=== PATIENT | male | born 1950 | race African-American/Black ===

== ENCOUNTER 2017-02-12 11:54 | Inpatient (IN) ==
[2017-02-18 16:26] VITALS: BP 97/66
== END 2017-02-18 16:43 | disposition home health service (06) ==
LOC: DIRADM 11:54 → 4N 13:48
PROVIDERS: ADMIT Internal Medicine; ATTEND Internal Medicine

== ENCOUNTER 2017-02-21 18:47 | Inpatient (IN) ==
[2017-02-21] MEDS ORDERED: NS 1,000 ML IV ONE (19:11)
[2017-02-21 19:22] LABS: MANUAL DIFF NEEDED? NO
[2017-02-21] MEDS ORDERED: MORPHINE IV ONE (19:24)
[2017-02-21 19:27] LABS: BASO% 0.2 % (0.0-0.8); EOS# 0.14 X1000 (0.0-0.7); EOS% 1.4 % (0.0-10.0); HEMATOCRIT 40.8 % (42.0-52.0); HEMOGLOBIN 12.4 g/dL (14.0-18.0); IMM GRAN# 0.04 X1000 (0.0-0.04); IMM GRAN% 0.4 % (0.0-0.5); LYMPH# 5.09 X1000 (1.2-3.4); MCH 27.6 PG (27-31); MCHC 30.4 g/dL (33-37); MCV 90.7 FL (81-99); MONO# 0.49 X1000 (0.11-0.59); MONO% 4.9 % (1.7-9.3); MPV 11.1 FL (7.4-10.4); NEUT% 42.1 % (42.2-75.2); PLT 143 X1000 (130-400)
[2017-02-21 19:43] LABS: INR 1.08; PROTIME 11.4 Seconds (9.2-11.7); PTT 31.5 Seconds (22.0-36.0)
[2017-02-21 19:53] LABS: ALBUMIN 3.8 g/dL (3.5-5.0); CALCIUM 9.7 mg/dL (8.8-10.2); POTASSIUM 4.2 mmol/L (3.5-5.1); TOTAL BILIRUBIN 0.25 mg/dL (0.20-1.00); TOTAL PROTEIN 7.7 g/dL (6.3-8.3)
[2017-02-21] MEDS ORDERED: NS 500 ML IV ONE (20:31)
[2017-02-21] MEDS ORDERED: PREPARATION H SUPPOSITORY PR ONE (20:38)
--- NOTE | 2017-02-21 20:53 | PROVIDER DOCUMENTATION ---
This chart was entered by Geno Fernando Scribe, acting as scribe for Will Ramirez CRNP. HPI-Abdominal Pain/GI Problem - General Chief Complaint: GI Bleed Stated Complaint: HEMORRHOIDS/BLK STOOL Time Seen by Provider: 02/21/17 19:24 Source: patient Allergies/Adverse Reactions: Patient Allergies Allergy/AdvReac Type Severity Reaction Status Date / Time No Known Allergies Allergy Verified 02/21/17 19:01 Home Medications: Home Medication List Medication Instructions Recorded Confirmed Last Taken Type Allopurinol 100 mg PO DAILY 10/04/16 02/16/17 10/07/16 14:00 History Amlodipine Besylate 10 mg PO HS 10/04/16 02/16/17 10/07/16 22:00 History Atenolol 100 mg PO DAILY 10/04/16 02/16/17 10/07/16 14:00 History Brinzolamide/Brimonidine Tart 8 ml BOTH EYES BID 10/04/16 02/16/17 10/07/16 14: 00 History [Simbrinza 1%-0.2% Eye Drops] FA/Vit Bcomp,C/Zinc/Vitamin D3 1 each PO DAILY 10/04/16 02/16/17 10/07/16 14:00 History [Dialyvite 800-Ultra D Tablet] Fish Oil/Dha/Epa [Fish Oil 1,200 1 each PO DAILY 10/04/16 02/16/17 10/07/16 14: 00 History mg Fish Oil] Gabapentin 100 mg PO DAILY 10/04/16 02/16/17 10/07/16 14:00 History Insulin Glargine [Lantus] 40 unit SUBQ QHS 10/04/16 02/16/17 10/07/16 22:00 History Levothyroxine Sodium 75 mcg PO DAILY 10/04/16 02/16/17 10/07/16 14:00 History Meloxicam 15 mg PO DAILY 10/04/16 02/16/17 10/07/16 14:00 History Montelukast Sodium [Singulair] 10 mg PO DAILY 10/04/16 02/16/17 10/07/16 14:00 History Omeprazole [Prilosec] 20 mg PO DAILY@0700 10/04/16 02/16/17 10/07/16 14:00 History ROSUVAstatin [Crestor] 20 mg PO DAILY 10/04/16 02/16/17 10/07/16 14:00 History Sevelamer Carbonate [Renvela] 2,400 mg PO TID 10/04/16 02/16/17 10/07/16 14:00 History Sitagliptin Phosphate [Januvia] 100 mg PO DAILY 10/04/16 02/16/17 10/07/16 14: 00 History Fluconazole [Diflucan] 50 mg PO DIRECTED #15 tablet 02/18/17 Unknown Rx - History of Present Illness-ABD Nature of Presenting Problems: 66 year old M presents to the ED with a cc of black, tarry stools with an onset of 1 weeks ago. Pt states that he has a hx of hemorrhoids but denies seeing blood. Quality of Pain: reports: none Severity in ED: reports: mild Onset/Duration: reports: 1 week ago Timing: reports: still present Activities at Onset: reports: none Dark Stools Present?: reports: black, tarry Bruising or Bleeding Gums?: No Similar Symptoms Previously?: No Recently seen or treated by another doctor?: No Review of Systems - Adult - REVIEW OF SYSTEMS - ADULT Constitutional: denies: chills, fever Eyes: reports: no symptoms reported Ears, Nose, Mouth & Throat: reports: no symptoms reported Cardiovascular: denies: chest pain, palpitations Respiratory: denies: cough, shortness of breath Gastrointestinal: denies: abdominal pain, nausea, vomiting Genitourinary: denies: dysuria, hematuria Musculoskeletal: reports: no symptoms reported Integumentary: reports: no symptoms reported Neurological: reports: no symptoms reported Psychiatric: reports: no symptoms reported Endocrine: reports: no symptoms reported Hematologic/Lymphatic: reports: no symptoms reported Allergic/Immunologic: reports: no symptoms reported All Other Systems: Reviewed and Negative Past History - Adult - PAST MEDICAL HISTORY-ADULT Review of Records: reports: Nursing Assessment Review, Medications Reviewed Major Childhood Illnesses: reports: denies history Cardiovascular: reports: HTN, hyperlipidemia Respiratory: reports: denies history Gastrointestinal: reports: GERD Obstetrical/Gynecological: reports: denies history Genitourinary: reports: dialysis, ESRD Musculoskeletal: reports: denies history Neurological: reports: denies history Endocrine/Immune: reports: denies history Other Conditions: reports: denies history - PRIOR SURGERIES/PROCEDURES Surgical/Procedure History: reports: back/neck, other (uretheral repair, shunt placement) - IMMUNIZATION STATUS Childhood Immunizations: See Nurse Assessment Flu Vaccine: See Nurse Assessment - SOCIAL HISTORY Smoking: non-smoker Substance Use: none/never Alcohol Use Frequency: never Physical Exam-General - PHYSICAL EXAM-ADULT Initial Vital Signs Reviewed: Yes - CONSTITUTIONAL General Appearance: appears well, alert, no apparent distress - RESPIRATORY Respiratory: chest non-tender, lungs clear, normal breath sounds - CARDIOVASCULAR Cardiovascular: normal peripheral pulses, regular rate, rhythm, no edema - GASTROINTESTINAL (ABDOMEN) Abdominal Exam: normal bowel sounds, non tender, soft - GENITOURINARY Rectal Exam: black stool, hemorrhoids, tenderness - MUSCULOSKELETAL Back Exam: normal inspection, no CVA tenderness, no vertebral tenderness Extremity: pedal edema (3+ pitting edema to bilateral midshins) - SKIN Integumentary: other (peripherial vascular disease to bilateral lower extremities) - PSYCHIATRIC Psych/Mental Status: normal mood/affect, normal thought content, normal thought process, oriented x 3 Progress - PLAN OF CARE/RESULTS Progress/Plan/Lab Results: Vital Signs - 8 hr 02/21/17 18:53 Temperature 98.1 F Pulse Rate 114 H Respiratory Rate 18 Blood Pressure 89/48 O2 Sat by Pulse Oximetry 99 Laboratory Results - last 24 hr 02/21/17 19:08 WBC 9.99 RBC 4.50 L Hgb 12.4 L Hct 40.8 L MCV 90.7 MCH 27.6 MCHC 30.4 L RDW Std Deviation 18.2 H Plt Count 143 MPV 11.1 H Immature Gran % (Auto) 0.4 Neut % (Auto) 42.1 L Lymph % (Auto) 51.0 [place] % (Auto) 4.9 Eos % (Auto) 1.4 Baso % (Auto) 0.2 Immature Gran # (Auto) 0.04 Neut # (Auto) 4.21 Lymph # (Auto) 5.09 H [place] # (Auto) 0.49 Eos # (Auto) 0.14 Baso # (Auto) 0.02 Orders Category Date Time Status Saline Loc DIRECTED Care 02/21/17 19:10 Active CBC WITH ELECTRONIC DIFF [HEME] Stat Lab 02/21/17 19:08 Completed COMPREHENSIVE METABOLIC PANEL [CHEM] Stat Lab 02/21/17 19:08 Received OCCULT BLOOD SCREENING [STOOL] Stat Lab 02/21/17 19:18 Received PROTIME WITH INR [COAG] Stat Lab 02/21/17 19:08 Received PTT [COAG] Stat Lab 02/21/17 19:08 Received TYPE & SCREEN [BBK] Stat Lab 02/21/17 19:08 Received 0.9% Sodium Chloride Inj [Ns] 1,000 ml Med 02/21/17 19:11 Active IV 999 mls/hr Morphine Med 02/21/17 19:24 Discontinued 6 mg IV NOW ONE Result Diagrams: 02/21/17 19:08 02/21/17 19:08 - CONSULTS/PCP/HOSPITALIST Notification #1 *Consult/PCP/Hospitalist*: [place] Time Discussed: 20:52 Consult Disposition: Will see in ED, Admit Departure - Departure Date of Disposition Decision: 02/21/17 Time of Disposition Decision: 20:52 DIAGNOSIS: GI bleed Disposition: ADMITTED INPATIENT 09 Certified Medical Emergency: Emergent Condition: Stable Referrals and Follow-Ups: Itzel Wang MD [Primary Care Provider] - - Critical Care Note This patient required my direct & personal management of CC.: No Attestation - Physician/ TORRES Attestation Patient care was provided by Advanced Practice Provider:: Yes Advanced Practice Provider:: Will Ramirez (Dr. Samuel aware of lab results and agrees with admission.) Advanced Practice Provider documentation review:: The Mid-level provider documentation, treatment plan and medical decision making was reviewed by the physician who agrees with all treatment and medical decision making by the MLP. This chart was documented by the indicated scribe, (Geno Fernando Scribe) and accurately reflects the services I performed and decisions made by me, Will Ramirez CRNP, as attested by the provider's signature.
[2017-02-21] MEDS ORDERED: SODIUM CHLORIDE 0.9% INJ ONE (23:42)
[2017-02-21] MEDS ORDERED: NS 1,000 ML IV SCH (23:42)
[2017-02-21] MEDS ORDERED: ZOFRAN IV PRN (23:42)
[2017-02-21] MEDS: HUMALOG SUBQ SCH (23:50)
[2017-02-22] MEDS: PEPCID IV SCH ×3 (00:43→23:56)
[2017-02-22] MEDS: TYLENOL PO PRN (00:47)
[2017-02-22] MEDS ORDERED: TUCKS PADS TOP PRN (00:54)
[2017-02-22 04:51] LABS: AGAP 21; BUN 38 mg/dL (8-22); CHLORIDE 99 mmol/L (98-107); COSMO 294; POTASSIUM 4.4 mmol/L (3.5-5.1); SODIUM 144 mmol/L (136-145); TCO2 24 mmol/L (25-35)
[2017-02-22 04:52] LABS: CALCIUM 8.9 mg/dL (8.8-10.2)
[2017-02-22] MEDS ORDERED: PROCTOFOAM-HC FOAM TOP PRN (05:08)
[2017-02-22] MEDS: HUMALOG SUBQ SCH ×4 (06:00→23:52)
[2017-02-22] MEDS ORDERED: NS 2,000 ML MISC PRN (06:50)
[2017-02-22] MEDS: PRILOSEC PO SCH (07:00)
--- NOTE | 2017-02-22 07:02 | HISTORY AND PHYSICAL ---
REASON FOR ADMISSION: Persistent diarrhea for 5 days and dark stools noted for 1 day. HISTORY OF PRESENT ILLNESS: Mr. Dominik Ordonez is a 65-year-old, man with poorly controlled type 2 diabetes, diabetic nephropathy, and end-stage kidney disease on hemodialysis. He is under the care of the [facility] for what appears to be superinfected tinea cruris. Also, patient has a past medical history of reflux disease, diabetic neuropathy, hypothyroidism, gout, hyperlipidemia and hypertension. Patient reports that over the last 5 days, he has been having loose stools with no abdominal pain, nausea or vomiting. He denies any contact with anybody. No fever, no chills. No abdominal pain. No nausea or vomiting. He says that he has been taking [id number] Pepto-Bismol and Imodium for this and today when his home health nurse came, he mentioned to her that he had been having some dark stools and they called Dr. Wang who advised to go to the ER. He denies any postural lightheadedness, chest pain or dizziness. He denies any use of NSAIDs recently. REVIEW OF SYSTEMS: Patient complains of chronic left hip pain which has not worsened. He also complains of chronic dyspnea on exertion. He is completely anuric since he has been on hemodialysis. He denies any bright red blood but he feels as if he is having some rectal pain. On examination by the ER physician, he had what appears to be grade 2 hemorrhoids. Other complaints include, he has chronic bilateral groin ulcers which have been followed by Wound Care and they are painful and occasionally discharge. Review of systems 12 system review is negative. Positive as per HPI. ALLERGIES: No known allergies. HOME MEDICATIONS: Not reviewed in the system, but From October of this year, he was on amlodipine, allopurinol, atenolol, brinzolamide eyedrops, fish oil, Diflucan 50 mg every 48 hours, gabapentin, Lantus, levothyroxine, meloxicam, Singulair, omeprazole, Crestor, sevelamer, and Januvia. FAMILY HISTORY: Notable for kidney disease in first-degree relatives and diabetes in first-degree relatives. Mom of lung cancer. SOCIAL HISTORY: Lives with his only. Does not smoke, drink or do illicit drugs. SURGICAL HISTORY: He has had C-spine fusion, arm AV graft, post penile implant and reversal, bladder neck repair. PAST MEDICAL HISTORY: See above. Reports his last colonoscopy was 2 years ago performed by Dr. Covarrubias. LABORATORY WORK: White count is 9000, hemoglobin 12 and hematocrit 40, platelets 143,000. BUN is 36, creatinine 8.2, alkaline phosphatase 444. PTT is normal. Occult blood is positive. PHYSICAL EXAMINATION: GENERAL: Morbidly obese, man who is in mild distress from pain from his rectal and groin area. He is alert and oriented to person, time with normal mood and affect. VITAL SIGNS: Heart rate is , blood pressure 123/81/ on arrival his blood pressure was 89/48, but he has since received 1.5 L of normal saline. HEENT: Head is normocephalic, atraumatic. Eyes BITA, EOMI. He is anicteric, not pale. ENT and oropharynx exam is grossly normal. No central cyanosis. NECK: Short and thick. No JVD. No carotid bruit. No thyromegaly. CHEST: Clear to auscultation. Good air entry to both lung ro. HEART: First and second heart sounds heard. No gallops, murmurs, rubs. Rhythm is regular. ABDOMEN: The abdomen is protuberant, soft. No focal areas of tenderness. Bowel sounds are normal. RECTAL: Exam shows no visual hemorrhoids. I did not do a digital exam as he had already had 1 and he was in excruciating pain at that point of time that I saw him. GROIN: His groin area does show evidence of tinea cruris but superimposed on top of this he has an ulcer in each groin measuring about 2 x 3 cm and they do not have a necrotic base nor are they discharging any purulent material. No erythema. The surrounding skin is not warm. EXTREMITIES: The patient has trace edema in both lower extremities. He also has hyperpigmented changes of chronic venous insufficiency. Pulses distally are diminished, more so in the lower extremity but they are symmetrical compared to the distal pulses of the upper extremity. No clubbing or peripheral cyanosis. He does have a flexion deformity of his left 5th digit which is chronic. NEUROLOGICAL: No focal deficits. SKIN: See above, but otherwise unremarkable. MUSCULOSKELETAL: Exam is grossly normal. ASSESSMENT: 1. Probable g gastrointestinal bleed. The etiology yet to be determined. It is very difficult to determine if it is from an upper or lower gastrointestinal bleed because the patient has had taken Pepto-Bismol which could account for the dark stools. The occult positivity could have also been secondary to bleeding from ongoing hemorrhoids. We will do serial hemoglobin and hematocrit and run low fluids in this patient, since he is completely anuric. We will get Dr. Covarrubias to see him. Empirically start him on H2 blockers. 2. End-stage kidney disease/diabetic nephropathy. We will defer to Dr. Rivera and consult him. 3. Hypertension. Continue with atenolol for now. 4. Gout. Not active. 5. We will hold on allopurinol in the interim until the patient is evaluated further. 6. Tinea cruris with superimposed chronic groin ulcers. We will consult wound care nurse to see him. 7. Hypothyroidism. Continue with Synthroid. 8. Type 2 diabetes. Continue with Lantus and sliding scale. Hold Januvia. cc: MD Mckay Lora MD
[2017-02-22 08:13] LABS: HEMATOCRIT 35.3 % (42.0-52.0); HEMOGLOBIN 10.8 g/dL (14.0-18.0); MCH 27.8 PG (27-31); MCHC 30.6 g/dL (33-37); MPV 10.7 FL (7.4-10.4); RBC 3.88 XMIL (4.7-6.1)
[2017-02-22] MEDS ORDERED: DIFLUCAN PO SCH (09:00)
[2017-02-22] MEDS ORDERED: CRESTOR PO SCH (09:00)
[2017-02-22] MEDS: TENORMIN PO SCH ×2 (09:24→09:25)
[2017-02-22] MEDS ORDERED: EPOGEN SUBQ ONE (09:46)
[2017-02-22] MEDS ORDERED: HEPARIN ONE (10:21)
[2017-02-22] MEDS ORDERED: NS 2,000 ML ONE (10:21)
[2017-02-22] MEDS ORDERED: D50W SYRINGE IV ONE (10:37)
--- NOTE | 2017-02-22 11:32 | CONSULTATION ---
DATE OF CONSULTATION: 02/22/2017 REASON FOR CONSULTATION: ESRD and assistance with management. Original consult was placed by Dr. Hoang but I was addressed directly by Dr. Wang regarding the patient. HISTORY OF PRESENT ILLNESS: Mr. Ordonez is a 65-year-old black man, who is well known to us. He has obesity, diabetes, hypertension, peripheral vascular disease etc. He was just in the hospital with cellulitis and tinea cruris. After discharge or actually prior to discharge he was having diarrhea. Initial studies were negative. Over the last 2 days he has noted black stool and presented to the hospital with concern for GI bleeding. He has been taking Pepto-Bismol as an outpatient. No chest pain, palpitation, shortness of breath. PAST MEDICAL HISTORY: As above. MEDICATIONS: Reviewed. ALLERGIES: None. SOCIAL HISTORY: He lives with his . No alcohol or tobacco currently. FAMILY HISTORY: Is positive for kidney disease. PHYSICAL EXAMINATION: Vital Signs: Blood pressure 102/50, heart rate 70, respirations 20, afebrile. Generally: He is an obese, black man, in no distress. Skin: Warm and dry. HEENT: Conjunctivae are pink. Pupils are equal. Neck: Neck veins are not visible. Heart: PMI is not palpable. Regular rate and rhythm with S4 gallop. No murmurs. Lungs: Have equal breath sounds. No crackles. Abdomen: Soft nontender, obese. Bowel sounds present. Extremities: Have no edema, clubbing, or cyanosis. IMPRESSION: 1. End-stage kidney disease: We will continue his routine outpatient dialysis prescription today. 2. Diarrhea. Dr. Wang is evaluating this. Hemoglobin has fallen from 12.4-10.8. Dr. Carrasquillo has been consulted as well. 3. Elevated alkaline phosphatase. Likely related to metabolic bone disease. He has chronically elevated parathyroid hormone levels but has had difficulty getting a consistent supply of Sensipar. 4. Hypertension. 5. Anemia. We will continue his erythropoietin. cc: MD Mckay Pimentel MD
[2017-02-22] MEDS: PATIENT'S OWN MED BOTH EYES SCH ×2 (13:31→21:46)
[2017-02-22] MEDS ORDERED: SODIUM CHLORIDE 0.9% 10 ML ONE (15:48)
[2017-02-22 16:42] LABS: HEMATOCRIT 41.3 % (42.0-52.0); HEMOGLOBIN 12.4 g/dL (14.0-18.0)
[2017-02-22 17:19] LABS: HEMATOCRIT 40.2 % (42.0-52.0); HEMOGLOBIN 12.1 g/dL (14.0-18.0)
--- NOTE | 2017-02-22 18:05 | PROGRESS NOTE ---
DATE: 02/22/2017 SUBJECT: Patient was readmitted last night with diarrhea, passing black stools which are positive. Patient was admitted prior admission with tenia cruris with secondary bacterial infection and ulcers getting IV Diflucan and IV vancomycin. Prior C. Difficile report was negative. PAST MEDICAL HISTORY, PAST SURGICAL HISTORY, MEDICINES: Were reviewed. OBJECTIVE: Vital signs: On examination vitals are stable, 287 pounds. HEENT: Exam within normal limits. Neck: Supple. Chest: Clear. Heart: Sounds are regular. Belly: Is soft, nontender, obese, still foul-smelling discharge around the lower abdominal area, perineal area. Extremities: Also had AV graft on the left side. Neuro: No obvious neurological deficits. INVESTIGATIONS: CBC. White cell count 8.2, hematocrit 41, platelets 111,000. SMA 7 is sodium 144, potassium 4.4, BUN 38, creatinine 8.6, glucose 170. ASSESSMENT AND PLAN: 1. Lower gastrointestinal bleeding, black stools, stable hematocrit. Discontinue IV fluids. Dr. Covarrubias consult for possible esophagogastroduodenoscopy. 2. End-stage kidney disease on dialysis. 3. Tinea cruris with secondary bacterial infection. Continue on IV Diflucan, vancomycin, off of the dialysis as per Dr. Rivera. Continue the local wound care and follow up on serial hematocrits and continue on IV H2 blockers or PPIs. LEVEL OF DOCUMENTATION: 25 minutes. cc: Mckay Wang MD
[2017-02-22] MEDS: CRESTOR PO SCH (21:46)
[2017-02-22] MEDS ORDERED: INSULIN PEN NEEDLES ONE (22:42)
[2017-02-22] MEDS: LANTUS SUBQ SCH (22:45)
[2017-02-23] MEDS: HUMALOG SUBQ SCH ×4 (06:10→23:36)
[2017-02-23] MEDS: PRILOSEC PO SCH (06:21)
[2017-02-23] MEDS: TENORMIN PO SCH ×2 (09:50→09:53)
[2017-02-23] MEDS: DIFLUCAN PO SCH (09:50)
[2017-02-23] MEDS: PATIENT'S OWN MED BOTH EYES SCH ×2 (09:51→22:35)
--- NOTE | 2017-02-23 11:05 | PROGRESS NOTE ---
DATE: 02/23/2017 SUBJECTIVE: Mr. Ordonez is a 66-year-old, gentleman admitted with diarrhea and black color stool. The patient does have end-stage renal disease. The patient had nonhealing wound in both the groin area which has purulent and foul-smelling odor. The patient is on Diflucan. The patient does have underlying diabetes. The patient denied any chest pain, palpitations. No nausea, vomiting. His stool was melanotic. GI consult requested. Waiting for GI evaluation. No runny nose, stuffy nose, sinus drainage. Admission history and physical noted. PAST MEDICAL HISTORY: Significant for end-stage renal disease, diabetes mellitus, gastritis, hyperlipidemia, tinea cruris with secondary wound infection in the groin, end-stage renal disease, anemia. His vital signs noted. The patient had low-grade temperature of 99 degrees. Skin: No rash. Neck: Is supple. No JVD. Lungs: Bilateral good air entry present. CVS: S1 and S2 heard. 2/6 systolic murmur at the apex. Abdomen: Soft, globular. Bowel sounds present. Patient does have wound in both the groin. Extremities: No cyanosis, clubbing. No acute DVT. 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 CONSIDERATION: 1. Patient had melanotic stool which was heme positive. GI consult requested. We are waiting for GI evaluation. 2. Patient has tinea cruris with superimposed bacterial infection in the groin. I am going to get evaluation by wound care nurse. 3. Diabetes mellitus. 4. End-stage renal disease, on hemodialysis. 5. Hypothyroidism. 6. History of gout clinically stable. 7. Hypertension on beta mitesh. PLAN: Overall plan discussed with the patient and he is in agreement. cc: MD Mckay Ruiz MD
[2017-02-23] MEDS: CLINDAMYCIN 600 MG/NS 600 MG/50 ML IVPB IV SCH ×2 (12:17→20:15)
[2017-02-23] MEDS: PEPCID IV SCH (12:27)
[2017-02-23] MEDS ORDERED: DULCOLAX PR ONE (15:14)
--- NOTE | 2017-02-23 17:37 | PROGRESS NOTE ---
DATE: 02/23/2017 SUBJECTIVE: Patient is currently resting in bed. He denies any fevers, rigors , chills. Denies any nausea, vomiting, or vomiting blood. He has been constipated. He had not had any bowel movement today. His last bowel movement was on 02/22. Patient's hematocrit has been stable so far. He has no signs of active bleeding at the moment. OBJECTIVE: VITAL SIGNS: Temperature 98.3, pulse rate 57, respiratory rate 20, blood pressure 102/55, saturating 100% room air. Body weight of 227 pounds. BMI 32.6 kg/ms.General Appearance: Moderately nourished, lying in bed, in no acute distress. HEENT: No pallor. No icterus. Pupils equal, react to light. Neck: Supple. Abdomen: Soft, nontender, nondistended. Bowel sounds are heard. No guarding. Extremities: No cyanosis or clubbing. Neurologic: Alert , awake, and answers questions. LABS: Hemoglobin and hematocrit is 12.1 and 40.2, white count 8.2, platelet count of 111,000, MCV of 91. Sodium 140 potassium 4.4, chloride 99, bicarb 24, anion gap of 21, BUN of 30, creatinine of 8.6, glucose of 126, calcium is 8.9. AST 15, ALT 8, alkaline phosphatase 44 , total protein 7.7, albumin of 3.8. PTH is 828. IMPRESSION/PLAN: 1. Positive Hemoccult and questionable melena once, but has appeared to have resolved spontaneously. We will keep the patient on proton pump inhibitors for now. If patient will stays here over the weekend then we will schedule for EGD on Saturday morning. We will continue him on Pepcid 20 mg IV q.12 hours. 2. We will hold any kind of NSAIDs for now. At home the patient was taking fish oil. We would like to hold that for now. And patient is also taking Mobic at home, so I have told him to discontinue Mobic and fish oil. The patient's Celebrex can also be withheld for now until his hematocrit stabilizes. 3. End stage renal disease, on hemodialysis per Dr. Rivera. 4. Tenia cruris with superimposed infection. He is continuing on antibiotics. 5. Diabetes mellitus, per the primary team. 6. Hypothyroidism. 7. Gout. 8. Hypertension. 9. Further recommendations pending hospital course. cc: MD Mckay Keenan MD Bharat K. Vakharia, MD MTDD
[2017-02-23] MEDS: TYLENOL PO PRN (19:48)
[2017-02-23] MEDS: CRESTOR PO SCH (22:34)
[2017-02-23] MEDS: DULCOLAX PR SCH (22:35)
[2017-02-23] MEDS: LANTUS SUBQ SCH ×2 (22:35→22:37)
[2017-02-24] MEDS: TYLENOL PO PRN (01:54)
[2017-02-24] MEDS: PEPCID IV SCH ×2 (02:42→17:33)
[2017-02-24] MEDS: CLINDAMYCIN 600 MG/NS 600 MG/50 ML IVPB IV SCH ×2 (05:01→17:33)
[2017-02-24 05:43] LABS: MANUAL DIFF NEEDED? NO
[2017-02-24 05:54] LABS: BASO% 0.3 % (0.0-0.8); EOS% 2.5 % (0.0-10.0); HEMATOCRIT 35.9 % (42.0-52.0); IMM GRAN# 0.02 X1000 (0.0-0.04); IMM GRAN% 0.3 % (0.0-0.5); LYMPH# 3.81 X1000 (1.2-3.4); LYMPH% 48.3 % (20.5-51.1); MCH 27.4 PG (27-31); MCHC 30.6 g/dL (33-37); MCV 89.5 FL (81-99); MONO# 0.53 X1000 (0.11-0.59); MONO% 6.7 % (1.7-9.3); MPV 10.7 FL (7.4-10.4); NEUT% 41.9 % (42.2-75.2); PLT 128 X1000 (130-400); RBC 4.01 XMIL (4.7-6.1)
[2017-02-24 06:09] LABS: ALBUMIN 3.1 g/dL (3.5-5.0); CALCIUM 9.4 mg/dL (8.8-10.2); POTASSIUM 4.3 mmol/L (3.5-5.1); TOTAL BILIRUBIN 0.22 mg/dL (0.20-1.00); TOTAL PROTEIN 6.7 g/dL (6.3-8.3)
[2017-02-24] MEDS: PRILOSEC PO SCH (06:12)
[2017-02-24] MEDS: HUMALOG SUBQ SCH ×4 (06:15→22:43)
[2017-02-24] MEDS: TENORMIN PO SCH ×2 (09:30→12:34)
[2017-02-24] MEDS: PATIENT'S OWN MED BOTH EYES SCH ×2 (09:30→21:12)
--- NOTE | 2017-02-24 09:45 | PROGRESS NOTE ---
DATE: 02/24/2017 SUBJECTIVE: Mr. Ordonez is doing better. He denied any high-grade fever or chills. No diarrhea. Blood sugar doing better. The patient is concerned about foul smelling discharge from the groin wound. No fresh bleeding per rectum. His melena seems to be improving. The patient has no typical chest pain. PHYSICAL EXAMINATION: Vital Signs: His vital signs noted. Neck: Supple. No JVD. Lungs: Bibasilar crepitations. Heart. A 2/6 systolic murmur at the apex. Abdomen: Soft, globular. Bowel sounds present. Extremities: No cyanosis, clubbing. No acute DVT. DIRECTOR OF CONTENT MARKETING: Alert, awake. Able to move all 4 limbs. CONSIDERATION: 1. Patient admitted with melena. Survey Operations Director following patient with us. 2. The patient does have tinea cruris with superimposed infection. I started him on clindamycin. We are going to get an infectious disease consultation with Dr. Virk. 3. End-stage renal disease, on hemodialysis. 4. Noninsulin-dependent diabetes mellitus. 5. Hypothyroidism. 6. Hypertension. LAB DATA: Done today, hemoglobin 11, hematocrit 35.9, WBC count 7.89, platelet count 128,000. Electrolytes fairly benign. BUN 43, creatinine 8.9. PLAN: Overall plan discussed with the patient and he is in agreement. cc: MD Mckay Ruiz MD
--- NOTE | 2017-02-24 17:38 | Diag Imaging Result Doc PS360 ---
FINGER(S)-LEFT - 02/24/2017 INDICATION: L little finger flexion contraction TECHNIQUE: X-ray left pinky finger three views COMPARISON: None FINDINGS: There is comminuted, moderately displaced fracture through the shaft of the proximal phalanx of the pinky finger. There is clearly some erosion/remodeling. There is severe peripheral vascular disease. There is flexion contracture at the proximal interphalangeal joint. IMPRESSION: Displaced, comminuted, chronic fracture through the proximal phalanx of the pinky finger. Electronically signed by Chi Joshua 02/24/2017 5:36 PM
[2017-02-24] MEDS: CRESTOR PO SCH (21:10)
[2017-02-24] MEDS: LANTUS SUBQ SCH (21:11)
[2017-02-24] MEDS: DULCOLAX PR SCH (21:11)
--- NOTE | 2017-02-24 21:29 | CONSULTATION ---
DATE OF CONSULTATION: 02/22/2017 REASON FOR CONSULTATION: Diarrhea for 5 days and dark stools. HISTORY OF PRESENT ILLNESS: 66-year gentleman, type 2 diabetes, diabetic nephropathy end-stage kidney disease, presents with 5-day history of diarrhea and some dark stool but he also had been taking Pepto-Bismol and Imodium. The stool is heme positive. REVIEW OF SYSTEMS: 1. Chronic left hip pain which is not worse. 2. Chronic dyspnea on exertion. 3. Dialysis. 4. Hemorrhoidal bleed. 5. Chronic bilateral ulcers followed by wound care. ALLERGIES: None. HOME MEDICATION: Amlodipine, allopurinol, fish oil, Diflucan 50 mg for 48 hours, gabapentin, Lantus, levothyroxine, meloxicam, Singulair, omeprazole, Crestor and Januvia. PAST MEDICAL HISTORY: 1. Diabetes. 2. Anuric with renal failure. 3. Hypertension. 4. Tinea cruris infection. 5. Reflux. 6. Hyperlipidemia. FAMILY HISTORY: Notable for kidney disease. SOCIAL HISTORY: Lives with his . Does not smoke, drink or do drugs. SURGICAL: T-spine fusion, AV graft, penile implant. LABORATORY DATA: White count 9000, hemoglobin, hematocrit stable at 12 and 40, platelet 143,000, BUN 36, creatinine 8.2, alkaline phosphatase 444, Hemoccult stool positive. PHYSICAL EXAMINATION: General: Reveals this pleasant gentleman morbidly obese in mild distress from discomfort in the rectal and groin ulcers, alert and oriented. Vital Signs: Heart rate 80, blood pressure 123/80, respiratory rate 20. HEENT: Pupils equal and reacting to light. There is no scleral icterus or conjunctival pallor. Neck: Supple. Trachea midline. Heart: Normal first and second heart sounds. Lungs: Clear. Abdomen: Obese and nontender. Bowel sounds present and normal. Rectal Examination: Did show a positive stool, groin has ulcers. Extremities: Trace edema in both lower extremities. Neurologic: No focal deficit. IMPRESSION AND PLAN: 1. A 5-day history of diarrhea, rule out Clostridium difficile. 2. Dark stool could be secondary to Pepto-Bismol however it is a heme-positive stool. 3. No evidence of a anemia and questionable gastrointestinal bleed. 4. End-stage kidney disease. 5. Hypertension. 6. Gout. 7. Hypothyroidism. Will continue all of this. I talked to Dr. Taveras who will be at least doing an EGD. Meanwhile will check the stool for C. difficile and other things patient is stable, patient is going for dialysis. cc: MD Mckay Ricks MD
--- NOTE | 2017-02-25 00:35 | PROGRESS NOTE ---
DATE: 02/24/2017 SUBJECTIVE: Patient resting in bed. His daughter is present at bedside. He denies any fevers, rigors, chills, nausea, vomiting or diarrhea. He does complain of constipation but moved his bowels yesterday. Denies any vomiting blood. OBJECTIVE: Vital signs: Temperature of 98.1 degrees, pulse of 51, respiratory 16, blood pressure 125/69, saturating 100% room air, BMI of 32.6 kg. General: Moderately moderate built, moderate nourished lying in bed in no acute distress. HEENT: Mild pallor. No icterus. Neck: Supple. Abdomen: Obese, soft, nontender, nondistended. Bowel sounds present. Extremities: No cyanosis, clubbing. Neuro: He is alert, awake and answered questions. LABS: Hemoglobin and hematocrit is 11 and 35.9, white count of 7.89, platelet count 128,000, MCV of 89.5. Sodium 139, potassium 4.3, chloride 96, bicarb 27, anion gap 18, BUN of 43, creatinine of 8.9, glucose 123, calcium 9.4, total bilirubin is 0.22, AST 11, ALT 6, alkaline phosphatase 84, total protein 6.7, albumin 3.1. IMPRESSION AND PLAN: 1. Melena which is now resolved. We are planning to do an EGD in the morning. 2. The patient was counseled to avoid use of nonsteroidal anti-inflammatory drugs like Mobic at home as they could have cause potential peptic ulcer disease. 3. Tenia cruris with superimposed infection per the primary care team. 4. End-stage renal disease Dr. Rivera. 5. Whw-[id number] diabetes mellitus per the primary team. 6. Hypothyroidism, hypertension being managed by primary team. 7. Risks, benefits, indications, alternatives of EGD were discussed the patient , family at bedside and all questions were answered. The family and the patient wants to proceed the procedure. cc: MD Mckay Pimentel MD MTDD
[2017-02-25] MEDS: PEPCID IV SCH ×2 (02:04→14:00)
[2017-02-25] MEDS: CLINDAMYCIN 600 MG/NS 600 MG/50 ML IVPB IV SCH ×2 (02:04→02:10)
--- NOTE | 2017-02-25 05:17 | CONSULTATION ---
DATE OF CONSULTATION: 02/24/2017 CONCLUSION: This 66-year-old male has an infection in both groin areas. It appears to be worse in the left one than the right. The patient also has noticed for the past 3 months, his left little finger is contracted. RECOMMENDATIONS: I have taken a culture from the patient's left groin. He already has been started on clindamycin. I have ordered an x-ray of the patient's left little finger, and have placed a consult for Orthopedics. DISCUSSION: The patient for the past 2-3 months has had pain in both groin areas, the left worse than the right. He developed pain, and was told that he had an infection in that area. His laboratory studies show a CBC with a white count of 7890, hemoglobin 11, and platelet count 128,000. Creatinine is 8.9, GFR is 7. Liver function studies are normal, except for an alkaline phosphatase of 384. The groin area is painful. PAST MEDICAL HISTORY/REVIEW OF SYSTEMS: Eyes and Ears: He has decreased vision, but his hearing is okay. Neck: No stiffness. Respiratory: No cough or shortness of breath. Gastrointestinal: No nausea, vomiting, or diarrhea. Genitourinary: The patient is on dialysis. He does not pass any urine. He was not having any suprapubic or flank pain. Gastrointestinal: No nausea, vomiting, or diarrhea. Bones, Joints, Muscles: The patient for the last 3 months has noticed that his left little finger has become contracted. Neurologic: The patient is not having any seizures. He is not having any motor or sensory loss at this time. Endocrine: Patient does have diabetes, but not thyroid disease. The remainder of the patient's review of systems was completed and was negative. PREVIOUS HOSPITALIZATIONS AND OPERATIONS: He has had surgery on his cervical spine. He has had creation of a left arm AV fistula. He had a penile implant, which was removed. 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 MEDICAL DISEASES: Positive for end-stage renal disease. He is on dialysis. He has diabetes mellitus, hypertension, what he called mini strokes. He also appears to have a contracture of his left little finger, the etiology of which is uncertain to me. Patient also has gout, gastroesophageal reflux disease, osteoarthritis, hypothyroidism, and hyperlipidemia. INFECTIOUS DISEASE HISTORY: Positive for Alfie's gangrene and urinary tract infection. Negative for pneumonia. FAMILY HISTORY: Positive for diabetes mellitus, hypertension, myocardial infarction, end-stage renal disease, requiring hemodialysis. SOCIAL HISTORY: [place] He is . He is disabled. His chart lists no known allergies. MEDICATIONS: Taken at home, include the following: Celebrex, Januvia, Renvela, Crestor, Prilosec, Singulair, meloxicam, Synthroid, gabapentin, fluconazole, eye drops, atenolol, and allopurinol. PHYSICAL EXAMINATION: Vital Signs: Temperature is 98.1 degrees, pulse 51. Respirations 16. Blood pressure 125/69. Patient weighs 227 pounds. General: This is a somewhat ill-appearing, elderly male. He is in no acute distress. Head, Eyes, Ears, Nose, and Throat: He can hear my spoken words. He can see near objects. He is missing many teeth, and he does have caries, and some teeth appear necrotic. Neck: No meningismus. Thorax: No increased AP diameter. Lungs: Clear to auscultation. Cardiovascular: Regular heart rate. Abdomen: Soft and nontender. Pelvic: The patient on the left side was tender, and had a superficial ulcerated wound that was tender. It had beefy red tissue. It did not have an odor, and I did not see any purulence. The right side was tender also, but I did not see any ulcerated area. Bones, Joints, Muscles: The patient has contracture of the left little finger. Thank you for the consult. cc: MD Mckay Ashley MD
[2017-02-25] MEDS: HUMALOG SUBQ SCH ×4 (06:02→23:43)
[2017-02-25] MEDS: PRILOSEC PO SCH (06:03)
[2017-02-25] MEDS ORDERED: NS 2,000 ML MISC PRN (06:42)
[2017-02-25] MEDS ORDERED: TIGHT: 0.2 ML/HR MISC PRN (06:42)
[2017-02-25] MEDS ORDERED: HEPARIN IV PRN (06:42)
[2017-02-25] MEDS: DIFLUCAN PO SCH (08:21)
[2017-02-25] MEDS: TENORMIN PO SCH (08:22)
[2017-02-25] MEDS: EPOGEN SUBQ SCH ×2 (09:26→12:34)
[2017-02-25] MEDS: PATIENT'S OWN MED BOTH EYES SCH ×3 (09:26→22:20)
[2017-02-25] MEDS ORDERED: XYLOCAINE-MPF 2% ONE (10:22)
[2017-02-25] MEDS ORDERED: DIPRIVAN 1% ONE (10:22)
--- NOTE | 2017-02-25 10:57 | PROGRESS NOTE ---
DATE: 02/25/2017 TIME SEEN: 0730. SUBJECTIVE: Mr. Ordonez is resting quietly in bed. He has no complaints at this time. He is NPO for some procedures later on this afternoon, he thinks per his GI doctor. OBJECTIVE: Vital signs: His most recent vital signs, temperature 98.2 degrees , blood pressure 130/60, heart rate 57, respirations are 20. He is on room air. Last recorded saturation 99%. He has had 0 recorded in or out with need for dialysis. Labs: Most recent labs have not been drawn yet this a.m. Last potassium of 4.3, with a hemoglobin of 11. PHYSICAL EXAMINATION: General: This is a 66-year-old male. He is resting quietly in bed. He is in no acute distress. Skin: Warm and dry. HEENT: Normocephalic, atraumatic. Conjunctivae pale. His mucous membranes are dry. Neck: Supple. Trachea midline. No JVD. Cardiovascular: Regular rate and rhythm. He has a soft systolic murmur. Lungs: Clear to auscultation anteriorly. Equal excursion. Diminished breath sounds posterior. On room air. Abdomen: Obese soft, nontender. Positive bowel sounds. Genitourinary: Not inspected. The patient states his rash has improved since his last hospitalization. Extremities: He continues with 2+ lower extremity edema. Neurological: He is alert and oriented x3. ASSESSMENT AND PLAN: 1. End-stage renal disease. Patient is due for his routine dialysis treatment this a.m. We will place him on a 2 K bath. He is to dialyze for 3.5 hours. We will attempt to pull him to his dry weight per his last outpatient dry weight. 2. Electrolytes. These are stable. 3. Anemia. This remains stable. 4. Black tarry stools with hemorrhoids. This is being followed by GI. Patient is scheduled for GI procedure this a.m. per scope per Dr. Taveras. I would like to thank you for allowing us to follow with this patient. Seen, data reviewed, discussed with Deedee Bauer on 02/25/17. I agree with the above assessment and plan of care. rg Dictated by LALA Medellin for Cresencio Rivera MD cc: LALA Medellin, MD Mckay Wang, MD [facility]
[2017-02-25] MEDS ORDERED: HEPARIN ONE (12:37)
[2017-02-25] MEDS ORDERED: NS 2,000 ML ONE (12:37)
[2017-02-25 13:05] LABS: ALBUMIN 3.2 g/dL (3.5-5.0); CALCIUM 9.9 mg/dL (8.8-10.2)
--- NOTE | 2017-02-25 13:22 | OPERATIVE NOTE ---
PROCEDURE DATE: 02/25/2017 ATTENDING PHYSICIAN: Geronimo Jennings MD PROCEDURE: Esophagogastroduodenoscopy. PREOPERATIVE DIAGNOSES: 1. Melena. 2. Anemia. 3. End-stage renal disease on hemodialysis. 4. History of arthritis on Mobic every day. POSTOPERATIVE DIAGNOSES: 1. Normal esophagus. 2. Z-line visualized at 41 cm. 3. Evidence of mild gastritis in the body and antrum. 4. Normal fundus, cardia, incisura. 5. Mild erosive duodenitis in the duodenal bulb. 6. Normal 2nd portion duodenum. 7. No evidence of active bleeding, fresh or old blood noted in the entire EGD. 8. There was evidence of a lipoma on the posterior wall of the gastric antrum. ESTIMATED BLOOD LOSS: None. COMPLICATIONS: None. ANESTHESIA: Monitored anesthesia care by the anesthesiologist. DESCRIPTION OF PROCEDURE: After informed consent the patient and family explained the risks, benefits, indications, alternatives of the procedure, patient prepared for EGD. The patient was brought to the OR. He was turned in the left lateral position, a bite block was placed in patient mouth. After adequate monitored anesthesia care, the upper scope was introduced through the oral orifice and traversed all the way to the second portion of duodenum. The esophagus normal in the entire length. There was no evidence of any varices. The Z-line visualized at 41 cm, which was slightly irregular. The scope was advanced to the stomach, there was evidence of mild erythema, erosion in the body, antrum suggesting mild erosive gastritis. Retroflexion revealed normal fundus, cardia , incisura. There was evidence of possible lipoma in the posterior wall of the antrum. The duodenal bulb showed evidence of erythema, friability, erosions, suggesting erosive duodenitis. The second portion of duodenum appeared normal. There was evidence of fresh or old blood in the entire EGD. The air was aspirated as the scope was withdrawn. The patient tolerated the procedure and currently monitored in the OR in stable condition. RECOMMENDATIONS: 1. Patient will be on Prilosec once daily for 3 months and then wean down to Zantac 150 mg p.o. b.i.d. 2. The patient will follow gastroesophageal reflux lifestyle changes. Avoid excessive tea, coffee, soda, tomatoes, onions, spicy foods. 3. The patient will be on Iron C b.i.d. for 1 month. 4. The patient will avoid NSAIDs like Mobic for now. 5. Further recommendations pending hospital course. cc: MD Mckay Keenan MD Amit V. Vora, MD Reginald D. Gladish, MD MTDD
--- NOTE | 2017-02-25 14:43 | PROGRESS NOTE ---
DATE: 02/25/2017 PRESENT ILLNESS: The patient has an infection in both groin areas. A culture taken yesterday is growing gram negative rods. The patient also has a contracted left little finger. On x-ray, there is a fracture going through the proximal phalanx that may be responsible for this. MEDICATIONS: At this time the patient is not receiving any antibiotic. He is getting fluconazole. PHYSICAL EXAMINATION: Vital Signs: Temperature is 98.1 degrees, pulse 58, respirations 18, blood pressure 155/81. Generally: This is an obese, elderly male. He is in no acute distress. Lungs: Clear to auscultation. Cardiovascular: Regular heart rate. Extremities: Patient has an AV fistula in the left arm. Both groin areas are tender and there is a superficial ulceration in the left groin. The patient's left little finger remains contracted also. LABORATORY AND X-RAY: X-ray on the patient's little finger shows a there is a fracture as mentioned above. Culture from the groin area is growing gram negative rods. The patient's creatinine today is 11.4 with a GFR of 5. ASSESSMENT AND PLAN: 1. As regarding the patient's groin area, I am waiting for the identification and susceptibility of the Gram-negative courtney. As far as the patient's left finger, I have put in a consult for Dr. Rodriguez. 2. Patient's comorbidities include he is elderly. He is very obese which makes infection in intertriginous areas such as the groin easily infected and can be difficult to clear up. As far as the patient's contracted finger goes, Dr. Rodriguez will be seeing the patient. Comorbidities are obesity, end-stage renal disease, hemodialysis, diabetes mellitus. cc: MD Mckay Ashley MD
--- NOTE | 2017-02-25 18:42 | CONSULTATION ---
DATE OF CONSULTATION: 02/25/2017 HISTORY OF PRESENT ILLNESS: Mr. Ordonez is seen for followup of his finger deformity. PHYSICAL EXAMINATION: Examination reveals a slightly tender motion over a swollen left little pinky finger injury. He denies recalling any injury. Examination reveals tenderness and popping over the finger. LABORATORY DATA: X-rays show what appears to be a fracture through the middle phalanx with nonunion or partial union. I have discussed with him phong taping it to the adjacent ring finger until he gets out of the hospital. Will consider surgical options for the fracture at some point in the future in a controlled basis. We have asked him to follow up with us in the office in the next 2 weeks. In the meantime, it can be taped to the adjacent ring finger for symptom control. cc: MD Mckay Caballreo MD
--- NOTE | 2017-02-25 19:45 | PROGRESS NOTE ---
DATE: 02/25/2017 SUBJECTIVE: This morning, over the weekend, he was evaluated for the upper GI bleeding. Hematocrit was stable. He was seen by Dr. Virk for the secondary bacterial infection. He is going for dialysis today. He wants to go home. Apparently he is complaining of finger deformity. Seen by Dr. Rodriguez and Dr. Taveras. He is going for an esophagogastroduodenoscopy this morning. OBJECTIVE: Vital Signs: On examination, his vitals are stable. HEENT Examination: Within normal limits. Neck: Supple. Chest: Clear. Cardiovascular: Heart sounds are regular. Groin: Still foul-smelling drainage. Cultures are gram-negative rods noted. INVESTIGATIONS: Show hematocrit 36, SMA 7 is stable. ASSESSMENT AND PLAN: 1. Upper gastrointestinal bleeding. Possible stable hematocrit. Continue on H2 blockers. Esophagogastroduodenoscopy under with this morning. 2. Tenia cruris secondary bacterial infection. Discontinue clindamycin in light of diarrhea. He is going to get IV vancomycin and IV Diflucan after dialysis. 3. End-stage kidney disease, on dialysis. 4. Diabetes. Is well controlled. 5. Left pinky finger proximal phalanx fracture. Terrence tape. We will check the CBC in the morning. LEVEL OF DOCUMENTATION: Twenty-five minutes. cc: Mckay Wang MD
[2017-02-25] MEDS: ICAR-C PO SCH (22:19)
[2017-02-25] MEDS: CRESTOR PO SCH (22:19)
[2017-02-25] MEDS: LANTUS SUBQ SCH (22:24)
[2017-02-25] MEDS: DULCOLAX PR SCH (23:43)
--- NOTE | 2017-02-25 23:54 | CONSULTATION ---
DATE OF CONSULTATION: 02/25/2017 ADMITTING PHYSICIAN: Sofya Wang. CONSULTING PHYSICIAN: Arnold Rodriguez. CHIEF COMPLAINT: Contracture left 5th finger. HISTORY OF PRESENT ILLNESS: Mr. Ordonez is a 66-year-old black male who has experienced a contracted left 5th finger for several months. Mr. Ordonez was admitted on February 21 with complaint of bleeding per rectum and was admitted for evaluation. Orthopedic surgery was contacted to examine his left hand. Radiographic evaluation of the left small finger reveals a chronic fracture through the proximal phalanx of the left small finger. PAST MEDICAL HISTORY: 1. Eps-rpvuncx-ouxjwuviy diabetes mellitus. 2. Diabetic nephropathy. 3. End-stage kidney disease on dialysis. 4. Gastroesophageal reflux disease. 5. Hypothyroidism. 6. Gout. 7. Hypertension. 8. Hyperlipidemia. 9. History of Alfie gangrene. 10. Recent inguinal infection which is felt to be a tinea infection. PAST SURGICAL HISTORY: 1. C-spine fusion. 2. Left upper extremity AV graft. 3. Penile implant. SOCIAL HISTORY: The patient is . He maintains a home with his . He is a nonsmoker. REVIEW OF SYSTEMS: HEENT: No known history of stroke or cerebrovascular disease. Cardiac: He is treated for hypertension. Pulmonary: The patient is a nonsmoker. He does get short of breath when he exerts himself. Gastrointestinal: He was admitted for possible GI bleeding. Genitourinary: He has a history of diabetic nephropathy, end-stage kidney disease, and receives regular dialysis. He is also being managed for a inguinal infection. Musculoskeletal: Left 5th finger contracture. OTHER: Txm-ivxcvdw-fihhkaiab diabetes mellitus, hyperlipidemia, history of Alfie gangrene. PHYSICAL EXAMINATION: General: The patient is resting comfortably in bed. He is articulate and able answer all questions fully. He is currently in the dialysis chair. HEENT : Head is normocephalic and atraumatic. Heart: Regular rate and rhythm. No murmurs, gallops, or rubs. Lungs: Clear to auscultation bilaterally. Abdomen: Round. Bowel sounds are present. GENITOURINARY: Not examined. Neurological: Gross motor function is intact in the left upper extremity. He is connected to the dialysis machine at this time. Musculoskeletal: Left 5th digit. He has some deformity to the left 5th phalanx. He is able to straighten the finger with assistance from his other hand. There is some ratcheting which occurs. 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 PLAN OF CARE: Once medically cleared, we would recommend follow up in our office as an outpatient. Thank you for including us in the care of Mr. Ordonez. We will continue to follow him with you as necessary. Dictated by LYLY Barkley for Rajat Rodriguez MD cc: LYLY Barkley MD Jagan Reddy, MD MTDD
[2017-02-26] MEDS: PEPCID IV SCH ×2 (03:20→13:33)
[2017-02-26] MEDS: HUMALOG SUBQ SCH ×3 (05:46→16:52)
[2017-02-26] MEDS: PRILOSEC PO SCH (06:19)
[2017-02-26 06:28] LABS: MANUAL DIFF NEEDED? NO
[2017-02-26 06:45] LABS: BASO% 0.3 % (0.0-0.8); HEMATOCRIT 36.2 % (42.0-52.0); HEMOGLOBIN 11.2 g/dL (14.0-18.0); IMM GRAN# 0.04 X1000 (0.0-0.04); IMM GRAN% 0.6 % (0.0-0.5); LYMPH# 3.51 X1000 (1.2-3.4); LYMPH% 53.1 % (20.5-51.1); MCH 27.5 PG (27-31); MCHC 30.9 g/dL (33-37); MCV 88.9 FL (81-99); MONO# 0.36 X1000 (0.11-0.59); MONO% 5.4 % (1.7-9.3); MPV 10.5 FL (7.4-10.4); NEUT% 37.6 % (42.2-75.2); PLT 144 X1000 (130-400); RBC 4.07 XMIL (4.7-6.1)
--- NOTE | 2017-02-26 09:30 | PROGRESS NOTE ---
DATE: 02/26/2017 PRESENT ILLNESS: The patient has bilateral groin infection. The culture taken from the groin is growing multiply drug resistant E coli. The patient also has a fractured finger , for which Dr. Rodriguez is treating the patient. MEDICATIONS: I have started the patient on Levaquin. I have also electronically printed a prescription for Levaquin for when he goes home. The dose will be 250 mg daily because of the patient's renal failure, and I have written a prescription for 20 days treatment. PHYSICAL EXAMINATION: Vital Signs: Temperature is 98.2 degrees, pulse 54, respirations 18, blood pressure 135/57. General: This is an obese, elderly male. He is in no acute distress. Cardiovascular: Heart rate is regular. Lungs: Clear to auscultation. Abdomen : Soft and nontender. Groin areas: I inspected both groin areas. There is a superficial ulceration in the left groin. There was no fluctuance and no involvement of the penis or scrotum. Extremities: The patient's left little finger is taped to the next finger, but still is deformed. LAB AND X-RAY: The culture grew as mentioned above multiply drug resistant E coli. It was susceptible to Levaquin. ASSESSMENT AND PLAN: As regarding the patient's groin area, I have written out a prescription for Levaquin as mentioned above. I also told him that it would be very good if he could lose some weight because the area where he has his infection is where the tissues rub against each other. Also as mentioned above, Dr. Rodriguez will be seeing the patient in his office and will decide about surgically addressing the patient's fractured finger. The patient's comorbidities include he is elderly, he has renal failure, he is very obese, he is on hemodialysis. He also has diabetes mellitus. Dr. Wang will be seeing the patient in followup. I am available to see patient prn. cc: MD Mckay Ashley MD MTDD
[2017-02-26] MEDS: ICAR-C PO SCH ×2 (10:04→21:19)
[2017-02-26] MEDS: TENORMIN PO SCH (10:04)
[2017-02-26] MEDS: PATIENT'S OWN MED BOTH EYES SCH ×2 (10:05→21:34)
--- NOTE | 2017-02-26 11:19 | PROGRESS NOTE ---
DATE: 02/26/2017 TIME SEEN: 0810. SUBJECTIVE: Mr. Ordonez is resting quietly in bed. He denies chest pain or increased work of breathing. OBJECTIVE: Vital Signs: His most recent vital signs: Last temperature 98.2 degrees, blood pressure 135/57, heart rate 54, and respirations are 16. He remains on room air. Last recorded saturation 100%. He has had 240 in. He has had 1500 out on dialysis. General : This is a 66- year-old male. He is currently resting in bed. He is in no acute distress. Skin: Warm and dry. HEENT: Normocephalic, atraumatic. Conjunctivae pale. He has BITA. Mucous membranes moist. Neck: Supple. Trachea midline. No JVD. Cardiovascular: He has regular rate and rhythm. He has a soft murmur. No gallop appreciated. Lungs: Clear to auscultation anteriorly. Equal excursion on room air. Abdomen: Obese, soft, nontender. Positive bowel sounds. Extremities: Indicate no edema, no clubbing or cyanosis to the lower extremities. Fistula to the left upper arm. Integumentary: No rashes or lesions evident. Perianal area not inspected. Genitourinary: Minimal urine with dialysis assist. Neurological : Alert and oriented x3. LABORATORY: His most recent laboratories are currently pending in the a.m. with a hemoglobin today of 11.2 and a white count of 6.61. He has routine culture of the groin indicating Escherichia coli. ASSESSMENT AND PLAN: 1. End-stage renal disease. Patient is due for his routine dialysis treatment in the morning. Tolerated his dialysis treatment yesterday. 2. Electrolytes and acid-base balance. These have remained stable. 3. Anemia. This is close to target. 4. X-ray of left finger consistent with phalanx fracture. This is now being followed by Dr. Rodriguez. 5. Patient has had chronic diarrhea. His clindamycin has been stopped. He is now on vancomycin and Diflucan after dialysis. I would to thank you for allowing us to follow with this patient. Seen, data reviewed, discussed with Deedee Bauer on 02/26/17. I agree with the above assessment and plan of care. rg Dictated by LALA Medellin for Cresencio Rivera MD cc: LALA Medellin MD Jagan Reddy, MD MTDD
[2017-02-26] MEDS: DIFLUCAN PO SCH (13:31)
--- NOTE | 2017-02-26 18:51 | PROGRESS NOTE ---
DATE: 02/26/2017 SUBJECTIVE: The patient had EGD done. No signs of active bleeding noted. Dr. Virk has seen the patient for the groin infection with Escherichia coli sensitive to Keflex. He still has a lot of foul-smelling discharge with denuded ulcers. No complaints. PHYSICAL EXAMINATION: Vital Signs: Stable. HEENT: Within normal limits. Neck: Supple. No lymphadenopathy. Chest: Clear. Heart: Sounds are regular. Abdomen: Belly is soft, nontender. PERTINENT DATA: CBC: White cell count 6.6, hematocrit 36, platelets 144,000. ASSESSMENT AND PLAN: 1. Diarrhea resolving. 2. Possible gastrointestinal bleed. Stable hematocrit. EGD is negative. 3. Escherichia coli, with cellulitis. Tenia cruris. Continue on Diflucan and vancomycin. 4. Diabetes is well controlled. He will be discharged home tomorrow after dialysis and Dr. Rivera is going to do some Diflucan along with IV antibiotics. Continue local wound care. LEVEL OF DOCUMENTATION: 25 minutes. cc: Mckay Wang MD
[2017-02-26] MEDS: CRESTOR PO SCH (21:19)
[2017-02-26] MEDS: LANTUS SUBQ SCH (21:19)
[2017-02-26] MEDS: DULCOLAX PR SCH (21:33)
[2017-02-27] MEDS: PEPCID IV SCH ×2 (02:23→13:22)
[2017-02-27] MEDS: HUMALOG SUBQ SCH ×2 (05:33→13:29)
[2017-02-27] MEDS: PRILOSEC PO SCH (06:12)
[2017-02-27 07:06] LABS: ALBUMIN 3.4 g/dL (3.5-5.0); CALCIUM 9.4 mg/dL (8.8-10.2); POTASSIUM 4.6 mmol/L (3.5-5.1)
[2017-02-27] MEDS ORDERED: NS 2,000 ML MISC PRN (07:20)
[2017-02-27] MEDS ORDERED: HEPARIN IV PRN (07:20)
[2017-02-27] MEDS ORDERED: TIGHT: 0.2 ML/HR MISC PRN (07:20)
--- NOTE | 2017-02-27 08:33 | PROGRESS NOTE ---
DATE: 02/27/2017 PRESENT ILLNESS: The patient has bilateral groin infection. A culture from the groin is growing a multiply drug resistant E. coli. The patient also has a fractured finger for which Dr. Rodriguez is treating the patient. MEDICATIONS: The patient has had his antibiotics changed today to giving him Ancef 1 g IV after each dialysis. Levaquin has been discontinued. PHYSICAL EXAMINATION: Vital Signs: Temperature is 97.5, pulse 51, respirations 18, blood pressure 133/65. General: This is an obese, elderly male who is in no acute distress. Lungs: Clear to auscultation. Cardiovascular: Heart rate is regular. Abdomen: Soft and nontender. : In the groin area on the left side, there is an ulcerated area which is getting smaller. There is an odor coming from both groin areas also. Neurologic: Patient is alert. He can move his extremities. There is no tremor. His little finger has a flexion contracture. LAB AND X-RAY: There is no new x-ray for today. The patient's creatinine today was 9.5 with a GFR of 7. Yesterday, his CBC showed a white count of 6610, hemoglobin 11.2, and platelet count is 144,000. COMORBIDITIES: Include the fact that he is obese and thus he has intertriginous areas in his body. The one in his groin is probably responsible for the patient getting infected. He also has end-stage renal disease and is on dialysis and he also has diabetes. Both of these 2 diseases would also predispose him to get infections. I am available to see the patient on a p.r.n. basis. I am signing off for now. cc: MD Mckay Ashley MD
[2017-02-27] MEDS ORDERED: KEFZOL 1 GM/D5W 1 GM/50 ML IVPB IV ONE (09:13)
[2017-02-27] MEDS: ICAR-C PO SCH (13:22)
[2017-02-27] MEDS: EPOGEN SUBQ SCH (13:22)
[2017-02-27 13:25] VITALS: BP 153/83
[2017-02-27] MEDS: PATIENT'S OWN MED BOTH EYES SCH (13:25)
[2017-02-27] MEDS: TENORMIN PO SCH (13:25)
--- NOTE | 2017-02-27 14:10 | PROGRESS NOTE ---
DATE: 02/27/2017 SUBJECTIVE: Mr. Ordonez is resting in bed. He has just been examined by Dr. Virk. He states that he is ready to go home. Denies chest pain or increased work of breathing. OBJECTIVE: His most recent vital signs, temperature 97.5 degrees, blood pressure 183/65, heart rate 51, respirations 18. He is on room air. Last recorded saturation 98%. He has had 400 in. He has had 0 out. LABS: Sodium 140, potassium 4.6, chloride 97, CO2 25, BUN 44, creatinine 9.5, glucose 83, anion gap 18, calcium 9.4, phosphorus 6.7, albumin 3.4. Previous hemoglobin is 11.2 on the . PHYSICAL EXAM: This is a 66-year-old male. He is currently resting in bed. He is in no acute distress.Skin: Warm and dry. HEENT: Normocephalic, atraumatic. Conjunctiva is pink. He has BITA. Mucous membranes moist. Neck: Supple. Trachea midline. No JVD. Cardiovascular: Regular rate and rhythm. He has a soft murmur. No gallop appreciated. Lungs: Clear to auscultation anteriorly. Equal excursion on room air. Abdomen: Obese , soft, nontender. Positive bowel sounds. Extremities: Have no edema. No clubbing or cyanosis. Fistula to the left upper arm. Integumentary: No rashes or lesions evident. Perianal area : Is not inspected. Genitourinary: Patient has minimal void with dialysis assist. Neurological: Alert and oriented x3. ASSESSMENT AND PLAN: 1. End-stage renal disease. Patient is due for his routine dialysis treatment today. We will place him on a 2 K bath. He is to dialyze for 3.5 hours. We will attempt to pull him to his dry weight. 2. Electrolytes acid-base balance and anemia. These remain stable. No indications for intervention. 3. Chronic diarrhea. Patient's clindamycin has been stopped. This has improved. Negative C. diff. 4. Perianal rash. The patient is requiring continuation of Ancef 1 gram x2 weeks. Upon discharge we will notify the outpatient clinic in regards with this. I would to thank you for allowing us to follow with this patient. Seen, data reviewed, discussed with Deedee Bauer on 02/27/17. I agree with the above assessment and plan of care. rg Dictated by LALA Medellin for Cresencio Rivera MD cc: LALA Medellin MD Jagan Reddy, MD [facility]
--- NOTE | 2017-02-27 22:47 | DISCHARGE SUMMARY ---
ADMISSION DATE: 02/21/2017 DISCHARGE DATE: 02/27/2017 DISCHARGING DIAGNOSIS: Diarrhea, black stools, heme-positive, suspicious for upper GI source. The EGD was nonspecific gastritis. No signs of active bleeding. SECONDARY DIAGNOSES: 1. Tinea cruris, with secondary bacterial infection with Escherichia coli sensitive to Ancef. 2. Mild cognitive impairment. 3. Type 2 diabetes. 4. Hypertension. 5. Acid reflux disease. 6. Glaucoma. 7. Obesity. 8. Gout. 9. Hyperlipidemia. 10. Hypothyroidism. 11. Peripheral neuropathy. 12. End-stage kidney disease, on dialysis. CONSULTATIONS: Dr. Virk, and Dr. Rodriguez for the left pinky finger proximal phalanx fracture. BRIEF HISTORY: Please see the H and P that was done by the hospitalist. In brief, he is a 65- year-old male, recently discharged from the hospital with cellulitis and a bacterial infection in the groin, superimposed with tinea cruris. The skin was macerated, with ulcers and foul-smelling drainage. He had significant phimosis, with candidiasis noted. He is very unhygienic. He was sent home on IV Diflucan and IV vancomycin. In the meantime, he was brought in with diarrhea, heme-positive stools, and black stools. Initially, thought it was an upper GI bleeding. HOSPITAL COURSE: The patient was seen by Dr. Taveras. Serial hematocrits were normal. EGD was unremarkable. In the meantime, patient was seen by Dr. Virk for the secondary bacterial infection in the groin, which showed E. coli. It is sensitive to IV Ancef. The patient has been reassured. DISCHARGE INSTRUCTIONS: He was discharged home, with the following instructions: 1. Januvia 100 daily. 2. Atenolol 100 daily. 3. Singulair 10 daily. 4. Prilosec 20 daily. 5. Gabapentin 100 daily. 6. Crestor 20 daily. 7. Synthroid 75 mcg daily. 8. Lantus 40 units at bedtime. 9. Fish oil 1200 mg daily. 10. Simbrinza 1 drop b.i.d. 11. Allopurinol 100 daily. 12. Renvela 800 mg 3 tablets t.i.d. 13. Diflucan as directed 50 mg. 14. Celebrex 100 daily. 15. IV Ancef 1 g each day after dialysis for the secondary bacterial infection. 16. Follow up with Dr. Rivera, as well as in my office in 2 weeks. 17. Also, he is going to see Dr. Rodriguez for the left pinky proximal phalanx fracture. cc: MD Dr. Moose Keenan MD Jagan Reddy, MD
== END 2017-02-27 15:15 | disposition home health service (06) ==
LOC: ED 18:47 → 4N 23:17 → SUATTDRO 23:17
PROVIDERS: ADMIT Internal Medicine; ATTEND Internal Medicine

== ENCOUNTER 2017-03-11 15:28 | Inpatient (IN) ==
[2017-03-11] MEDS ORDERED: NS 500 ML ONE (16:08)
[2017-03-11] MEDS ORDERED: NS 500 ML IV ONE (16:28)
--- NOTE | 2017-03-11 16:32 | EKG Report ---
Test Performed on : 03/11/2017 4:03:33 PM Test Reason : Stroke like symptoms Blood Pressure : / mmHG Vent. Rate : 068 BPM Atrial Rate : 068 BPM P-R Int : 198 ms QRS Dur : 114 ms QT Int : 432 ms P-R-T Axes : 038 -42 042 degrees QTc Int : 459 ms Normal sinus rhythm. Left axis deviation Incomplete right bundle branch block Moderate voltage criteria for LVH, may be normal variant Abnormal ECG When compared with ECG of 20-AUG-2016 00:22, No significant change was found Unconfirmed Result
--- NOTE | 2017-03-11 16:36 | Diag Imaging Result Doc PS360 ---
HEAD W/O CONTRAST - 03/11/2017 INDICATION: stroke like symptoms TECHNIQUE: A CT dose reduction protocol was used. COMPARISON: 08/19/2016 FINDINGS: The ventricles and sulci are normal in size and contour. No intracranial mass or hemorrhage. Stable mucosal retention cyst in the left maxillary sinus. Stable marked vascular calcification of the small arteries of the scalp. The supraclinoid internal carotid arteries and vertebral arteries are also rather heavily calcified. IMPRESSION: No acute disease or change from prior. Electronically signed by Chi Joshua 03/11/2017 4:34 PM
[2017-03-11 16:37] LABS: MANUAL DIFF NEEDED? NO
[2017-03-11 16:48] LABS: BASO% 0.5 % (0.0-0.8); EOS# 1.36 X1000 (0.0-0.7); EOS% 12.7 % (0.0-10.0); HEMATOCRIT 43.2 % (42.0-52.0); IMM GRAN# 0.07 X1000 (0.0-0.04); IMM GRAN% 0.7 % (0.0-0.5); LYMPH# 4.95 X1000 (1.2-3.4); LYMPH% 46.3 % (20.5-51.1); MCH 27.7 PG (27-31); MCHC 30.1 g/dL (33-37); MCV 92.1 FL (81-99); MONO# 0.81 X1000 (0.11-0.59); MONO% 7.6 % (1.7-9.3); MPV 11.8 FL (7.4-10.4); NEUT% 32.2 % (42.2-75.2); PLT 192 X1000 (130-400); RBC 4.69 XMIL (4.7-6.1)
--- NOTE | 2017-03-11 16:50 | Diag Imaging Result Doc PS360 ---
CHEST-PORTABLE - 03/11/2017 INDICATION: stroke like symptoms TECHNIQUE: COMPARISON: 08/19/2016 FINDINGS: Lung volumes are low. There is central bronchovascular crowding. No focal infiltrates, pneumothorax, or pleural effusion. Heart size is grossly normal. IMPRESSION: No acute disease. Electronically signed by Chi Joshua 03/11/2017 4:47 PM
[2017-03-11 16:58] LABS: INR 1.03; PROTIME 10.8 Seconds (9.2-11.7); PTT 29.7 Seconds (22.0-36.0)
[2017-03-11 17:25] LABS: AGAP 24; ALBUMIN 3.8 g/dL (3.5-5.0); ALKALINE PHOSPHATASE 541 U/L (32-122); BUN 19 mg/dL (8-22); CALCIUM 10.5 mg/dL (8.8-10.2); CHLORIDE 90 mmol/L (98-107); COSMO 272; GOT 27 U/L (10-34); GPT < 5 U/L (10-44); POTASSIUM 4.8 mmol/L (3.5-5.1); SODIUM 135 mmol/L (136-145); TCO2 21 mmol/L (25-35); TOTAL BILIRUBIN 0.25 mg/dL (0.20-1.00); TOTAL PROTEIN 8.2 g/dL (6.3-8.3)
--- NOTE | 2017-03-11 17:29 | PROVIDER DOCUMENTATION ---
This chart was entered by Gregorio Fish Scribe, acting as scribe for Fabian Saucedo MD. HPI-Neurological Disorder - General Chief Complaint: Stroke-Like Symptoms Stated Complaint: WEAKNESS/BLURRED VISION Time Seen by Provider: 03/11/17 16:08 Source: patient, family Allergies/Adverse Reactions: Patient Allergies Allergy/AdvReac Type Severity Reaction Status Date / Time No Known Allergies Allergy Verified 03/11/17 16:49 Home Medications: Home Medication List Medication Instructions Recorded Confirmed Last Taken Type Allopurinol 100 mg PO DAILY 10/04/16 03/11/17 02/21/17 14:00 History Atenolol 100 mg PO DAILY 10/04/16 03/11/17 02/21/17 14:00 History Brinzolamide/Brimonidine Tart 8 ml BOTH EYES BID 10/04/16 03/11/17 02/21/17 14: 00 History [Simbrinza 1%-0.2% Eye Drops] Fish Oil/Dha/Epa [Fish Oil 1,200 1 each PO DAILY 10/04/16 03/11/17 10/07/16 14: 00 History mg Fish Oil] Gabapentin 100 mg PO DAILY 10/04/16 03/11/17 02/21/17 14:00 History Insulin Glargine [Lantus] 40 unit SUBQ QHS 10/04/16 03/11/17 02/21/17 14:00 History Levothyroxine Sodium 75 mcg PO DAILY 10/04/16 03/11/17 02/21/17 14:00 History Montelukast Sodium [Singulair] 10 mg PO DAILY 10/04/16 03/11/17 02/21/17 14:00 History Omeprazole [Prilosec] 20 mg PO DAILY@0700 10/04/16 03/11/17 02/21/17 14:00 History ROSUVAstatin [Crestor] 20 mg PO DAILY 10/04/16 03/11/17 02/20/17 20:00 History Sevelamer Carbonate [Renvela] 2,400 mg PO TID 10/04/16 03/11/17 02/21/17 14:00 History Sitagliptin Phosphate [Januvia] 100 mg PO DAILY 10/04/16 03/11/17 02/21/17 14: 00 History Celecoxib [Celebrex] 100 mg PO DAILY 02/22/17 03/11/17 02/21/17 History - History of Present Illness-Neuro Nature of Presenting Problem: patient is a 66 y/o M that presents to the with weakness, low BP, and right sided droop to his face. Patient's family reports last seeing him normal . He went to dialysis as normal today. He then went to his appointment with and they found it hard to find a palpable BP. Sent him here for evaluation. Was recently admitted for dark stools Severity: reports: moderate Onset/Duration: reports: unsure Timing: reports: still present, constant Context: reports: impaired speech, facial droop. denies: recent infection, falling Character of Altered Mental Status: reports: N/A Character of Deficits: reports: new weakness, impaired speech New weakness or altered sensation location:: reports: right facial Cognitive Baseline: alert, oriented x3 Gait Baseline: walks without assistance Associated Symptoms: reports: slurred speech, weakness. denies: headache, fainting, dizziness, confusion, neck/back pain, fever/chills, loss of consciousness, nausea, numbness in legs/feet, vomiting, vision changes Similar Symptoms Previously?: No Recently seen or treated by another doctor?: Yes Review of Systems - Adult - REVIEW OF SYSTEMS - ADULT Constitutional: denies: chills, fever Eyes: denies: decreased vision, blurred vision, double vision Ears, Nose, Mouth & Throat: denies: ear discharge, ear pain, sinus problem, throat pain, throat swelling Cardiovascular: denies: chest pain, palpitations, syncope Respiratory: denies: cough, dyspnea on exertion, shortness of breath, wheezing Gastrointestinal: denies: abdominal pain, diarrhea, nausea, vomiting Genitourinary: denies: dysuria, hematuria, urgency Musculoskeletal: reports: joint pain, muscle weakness. denies: bone pain, back pain, neck pain Integumentary: reports: no symptoms reported Neurological: denies: dizziness/vertigo, headache/migraines, loss of balance, syncope, tremors Psychiatric: reports: no symptoms reported Endocrine: reports: no symptoms reported Hematologic/Lymphatic: reports: no symptoms reported Allergic/Immunologic: reports: no symptoms reported All Other Systems: Reviewed and Negative Past History - Adult - PAST MEDICAL HISTORY-ADULT Review of Records: reports: Old Records Reviewed, Nursing Assessment Review, Medications Reviewed Cardiovascular: reports: HTN, hyperlipidemia Gastrointestinal: reports: GERD Genitourinary: reports: dialysis (MWF), ESRD - PRIOR SURGERIES/PROCEDURES Surgical/Procedure History: reports: back/neck, other (uretheral repair, shunt placement) - IMMUNIZATION STATUS Childhood Immunizations: See Nurse Assessment Flu Vaccine: See Nurse Assessment - FAMILY HISTORY Family History: reviewed, not pertinent - SOCIAL HISTORY Smoking: quit greater than 1 year, cigarettes Living Situation: family Physical Exam- Neurological - Physical Exam-Neuro Initial Vital Signs Reviewed: Yes General Appearance: mild distress, moderate distress, obese, lethargic Eye Exam: bilateral eye: normal inspection, PERRL HENMT: normocephalic/atraumatic, moist mucous membranes, normal ENT inspection Head Injury: no evidence of injury. 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 negative: focal weakness, motor weakness, sensory deficit Integumentary: normal color, warm/dry Psych/Mental Status: oriented x 3 - Glascow Coma Scale Best Eye Response: (4) open spontaneously Best Verbal Response: (5) oriented Best Motor Response: (6) obeys commands Total Glascow Score: 15 Progress - PLAN OF CARE/RESULTS Progress/Plan/Lab Results: Vital Signs - 8 hr 03/11/17 15:53 03/11/17 17:10 Temperature 98.6 F Pulse Rate 85 67 Respiratory Rate 20 Blood Pressure 68/32 80/47 O2 Sat by Pulse Oximetry 93 L Laboratory Results - last 24 hr 03/11/17 03/11/17 03/11/17 16:01 16:01 16:01 WBC 10.68 RBC 4.69 L Hgb 13.0 L Hct 43.2 MCV 92.1 MCH 27.7 MCHC 30.1 L RDW Std Deviation 19.3 H Plt Count 192 MPV 11.8 H Immature Gran % (Auto) 0.7 H Neut % (Auto) 32.2 L Lymph % (Auto) 46.3 Real % (Auto) 7.6 Eos % (Auto) 12.7 H Baso % (Auto) 0.5 Immature Gran # (Auto) 0.07 H Neut # (Auto) 3.44 Lymph # (Auto) 4.95 H Real # (Auto) 0.81 H Eos # (Auto) 1.36 H Baso # (Auto) 0.05 PT 10.8 INR 1.03 PTT (Actin FS) 29.7 Troponin T 0.111 H Orders Category Date Time Status Cardiac Monitoring DIRECTED Care 03/11/17 16:08 Active Finger Stick Blood Sugar (ED) DIRECTED Care 03/11/17 16:08 Active Misc. NRSG Communication Order DIRECTED Care 03/11/17 16:08 Active Oxygen Therapy- ED Nursing DIRECTED Care 03/11/17 16:08 Active Saline Loc NOW Care 03/11/17 16:08 Active CHEST-PORTABLE [RAD] Stat Exams 03/11/17 16:08 Completed HEAD W/O CONTRAST [CT] Stat Exams 03/11/17 16:08 Completed CBC WITH ELECTRONIC DIFF [HEME] Stat Lab 03/11/17 16:01 Completed COMPREHENSIVE METABOLIC PANEL [CHEM] Stat Lab 03/11/17 16:01 Received PROTIME WITH INR [COAG] Stat Lab 03/11/17 16:01 Completed PTT [COAG] Stat Lab 03/11/17 16:01 Completed TROPONIN T Stat Lab 03/11/17 16:01 Completed 0.9% Sodium Chloride Inj [Ns] 500 ml Med 03/11/17 16:08 Discontinued .ROUTE As Directed 0.9% Sodium Chloride Inj [Ns] 500 ml Med 03/11/17 16:28 Discontinued IV 999 mls/hr EKG [EKG] Stat Ther 03/11/17 16:08 Draft Vital Signs Temp Pulse Resp BP Pulse Ox 03/11/17 17:10 67 80/47 93 L 03/11/17 15:53 98.6 F 85 20 68/32 No Known Allergies Allergy (Verified 03/11/17 16:49) Allopurinol 100 mg PO DAILY 10/04/16 Atenolol 100 mg PO DAILY 10/04/16 Brinzolamide/Brimonidine Tart [Simbrinza 1%-0.2% Eye Drops] 8 ml BOTH EYES BID 10/04/16 Fish Oil/Dha/Epa [Fish Oil 1,200 mg Fish Oil] 1 each PO DAILY 10/04/16 Gabapentin 100 mg PO DAILY 10/04/16 Insulin Glargine [Lantus] 40 unit SUBQ QHS 10/04/16 Levothyroxine Sodium 75 mcg PO DAILY 10/04/16 Montelukast Sodium [Singulair] 10 mg PO DAILY 10/04/16 Omeprazole [Prilosec] 20 mg PO DAILY@0700 10/04/16 ROSUVAstatin [Crestor] 20 mg PO DAILY 10/04/16 Sevelamer Carbonate [Renvela] 2,400 mg PO TID 10/04/16 Sitagliptin Phosphate [Januvia] 100 mg PO DAILY 10/04/16 Celecoxib [Celebrex] 100 mg PO DAILY 02/22/17 Laboratory 03/11/17 03/11/17 03/11/17 16:01 16:01 16:01 WBC 10.68 RBC 4.69 L Hgb 13.0 L Hct 43.2 MCV 92.1 MCH 27.7 MCHC 30.1 L RDW Std Deviation 19.3 H Plt Count 192 MPV 11.8 H Immature Gran % (Auto) 0.7 H Neut % (Auto) 32.2 L Lymph % (Auto) 46.3 Real % (Auto) 7.6 Eos % (Auto) 12.7 H Baso % (Auto) 0.5 Immature Gran # (Auto) 0.07 H Neut # (Auto) 3.44 Lymph # (Auto) 4.95 H Real # (Auto) 0.81 H Eos # (Auto) 1.36 H Baso # (Auto) 0.05 PT 10.8 INR 1.03 PTT (Actin FS) 29.7 Troponin T 0.111 H Result Diagrams: 03/11/17 16:01 - EKG 1 Time of EKG reading by physician:: 16:03 EKG Read and Signed by:: Fabian Saucedo EKG Interpretation (*Must complete 3 of following elements*): Abnormal Rate: 68 Rhythm: NSR [place]: left QRS: RBB (incomplete), LVH ST Wave: normal - XRAY 1 XRAY Study: Chest Impression: Normal XRAY Interpretation: nad - CT/MRI 1 CT Study: Head Impression: Normal CT Results: nad - CONSULTS/PCP/HOSPITALIST Notification #1 *Consult/PCP/Hospitalist*: ( 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 ) Time Discussed: 17:21 Reason/Comments: Weakness, Hypotensive, ESRD with dialysis Consult Disposition: Admit Departure - Departure Date of Disposition Decision: 03/11/17 Time of Disposition Decision: 17:23 DIAGNOSIS: Hypotension, ESRD on dialysis, Weakness Speech abnormality Qualifiers: Speech disturbance type: other speech disturbance Qualified Code(s): R47.89 - Other speech disturbances Drooping eyelid Qualifiers: Laterality: right Qualified Code(s): H02.401 - Unspecified ptosis of right eyelid Disposition: ADMITTED INPATIENT 09 Certified Medical Emergency: Emergent Condition: Stable Referrals and Follow-Ups: Itzel Wang MD [Primary Care Provider] - - Critical Care Note This patient required my direct & personal management of CC.: Yes Total Time (mins): 35 Critical Care Statement: This patient required my direct personal management to treat or rule out processes, the absence of which, could potentiallly result in sudden, clinically significant life or limb threatening deterioration. This chart was documented by the indicated scribe, (Gregorio Fish, Scribe) and accurately reflects the services I performed and decisions made by me, Fabian Saucedo MD, as attested by the provider's signature.
[2017-03-11] MEDS ORDERED: ZOFRAN IV PRN (19:49)
[2017-03-11] MEDS: HUMULIN R SUBQ SCH (20:57)
[2017-03-11] MEDS: ANUSOL-HC CREAM PR SCH (20:57)
[2017-03-11] MEDS: PATIENT'S OWN MED BOTH EYES SCH (20:58)
--- NOTE | 2017-03-12 06:00 | HISTORY AND PHYSICAL ---
CHIEF COMPLAINT: Weakness and low blood pressure. HISTORY OF PRESENT ILLNESS: The patient is a 66-year-old, black male, followed by Dr. Amy Wang, who had been in the hospital a couple weeks ago. He was seen at Dr. Taveras's office this afternoon, after having undergone his routine dialysis treatment per Dr. Rivera at the dialysis center. Apparently, his blood pressure was marginally low at discharge from the hemodialysis center. When he got over to Dr. Taveras's office, he felt extremely weak as if he was going to pass out and blood pressure was not obtainable due to it being so low. He was transferred to the ER for evaluation and possible admission. There was also noted by family members possible weakness in his left arm and maybe a little slight droop in his right eyelid, although this has not been persistent. MEDICATIONS PRIOR TO ADMISSION: Januvia 100 mg p.o. daily, atenolol 100 mg p.o. daily, Singulair 10 mg p.o. daily, Prilosec 20 mg p.o. daily, gabapentin 100 mg p.o. daily, Crestor 20 mg p.o. daily, Synthroid 75 mcg p.o. daily, Lantus insulin 40 units subcutaneous at bedtime, fish oil 1200 mg p.o. daily, Simbrinza 1%/0.2% eyedrops (unknown dosage), allopurinol 100 mg p.o. daily, Renvela 800 mg tablets 3 p.o. t.i.d., Celebrex 100 mg p.o. daily. ALLERGIES: NKDA. PAST MEDICAL HISTORY: 1. End-stage renal disease, on hemodialysis per Dr. Rivera. 2. Prominent external hemorrhoids, followed by Dr. Taveras. 3. Mild cognitive impairment. 4. Type 2 diabetes mellitus, now insulin requiring. 5. Hypertension. 6. Gastroesophageal reflux disease. 7. Glaucoma. 8. Obesity. 9. Gout. 10. Hyperlipidemia. 11. Hypothyroidism. 12. Peripheral neuropathy. 13. History of tinea cruris with secondary bacterial infection, recently treated per Dr. Virk. PAST SURGICAL HISTORY: 1. Fistula placement, left arm. 2. C-spine fusion. 3. History of penile implant and reversal. 4. Bladder neck repair. FAMILY HISTORY: Kidney disease in several first-degree relatives. Diabetes in first-degree relatives. Mom of lung cancer. SOCIAL HISTORY: Patient lives with his . He is a nonsmoker. Denies alcohol and drug use. REVIEW OF SYSTEMS: Negative except as above. PHYSICAL EXAMINATION: VITAL SIGNS: Temperature 98.6 degrees, pulse 67, blood pressure 80/47, O2 saturation on room air is 93%. He received a 500 mL bolus of normal saline per Dr. Saucedo, ER physician. GENERAL: Well-developed, well-nourished, black male in Trendelenburg position. SKIN: No active rashes. HEENT: NC/AT. PERRL. EOMI. There is what appears to be some chronic pupillary changes, left greater than right. Also mild ptosis to the right upper eyelid which appears to be chronic. TMs clear. OP: No redness. Tongue in the midline. NECK: No LA, TMG, JVD, or bruits. CV: RRR without distinct murmur. LUNGS: CTA. ABDOMEN: Soft. No mass or organomegaly. GENITOURINARY/RECTAL: Deferred. EXTREMITIES: No calf tenderness, cords, or edema. Fistula in place, left upper arm. NEUROLOGIC: Cranial nerves are intact. He moves all extremities. Chronic mild right ptosis to the right upper eyelid. LABORATORY DATA: Shows a white count of 10.6, hemoglobin 13, hematocrit 43, platelets 192,000, neutrophils 32, lymphocytes 46, monocytes 7.6, eosinophils 12.7. PTT 10.8, INR 1.03, PTT 29.7. Sodium 135, potassium 4.8, chloride 90, CO2 21, BUN 19, creatinine 6.8, glucose 97, calcium 10.5. Total bilirubin 0.25, AST 27, ALT less than 5, alkaline phosphatase 541. Troponin 0.111. Total protein 8.2, albumin 3.8. CT scan of the head done without contrast reveals no acute disease or change from prior, stable marked vascular calcification in the small arteries of the scalp, mucous retention cyst, left maxillary sinus is unchanged, calcifications of the vertebral and internal carotid artery is noted. Chest x-ray reveals no acute disease. EKG shows sinus rhythm with left axis deviation, incomplete right bundle branch block, LVH per voltage criteria. No significant change from previous EKG. ASSESSMENT: 1. Hypotension. 2. Possible transient ischemic attack but doubtful. Likely, difficulties related to #1. 3. End-stage renal disease, on hemodialysis per Dr. Rivera. 4. History of hypertension. 5. Type 2 diabetes mellitus. 6. Chronic mild cognitive impairment. 7. History of recent tinea cruris with secondary bacterial infection. 8. Gastroesophageal reflux disease. 9. Glaucoma. 10. Obesity. 11. Gout. 12. Hyperlipidemia. 13. Hypothyroidism. 14. Peripheral neuropathy. PLAN: At this time, we will admit the patient to the ICU. We will monitor blood pressures closely. Give additional boluses of IV fluids if required or consider additional pressors should his blood pressure warrant. We will ask Dr. Rivera to consult on the patient. Hold his antihypertensive medications. I will continue his other medications except for his Lantus insulin. We are going to place him on serial Accu-Cheks and Humulin regular SSI as required, currently while monitoring his blood sugars. Keep him on a diabetic diet. We will follow the patient clinically. cc: MD Mckay Travis MD
[2017-03-12] MEDS: HUMULIN R SUBQ SCH ×4 (06:03→21:47)
[2017-03-12] MEDS: PRILOSEC PO SCH (06:05)
[2017-03-12] MEDS: SYNTHROID PO SCH (08:22)
[2017-03-12] MEDS: RENAGEL PO SCH ×3 (08:22→17:58)
[2017-03-12] MEDS: CELEBREX PO SCH (08:23)
[2017-03-12] MEDS: ANUSOL-HC CREAM PR SCH ×2 (08:23→17:03)
[2017-03-12] MEDS: SINGULAIR PO SCH (08:23)
[2017-03-12] MEDS: FISH OIL CONCENTRATE PO SCH (08:23)
[2017-03-12] MEDS: NEURONTIN PO SCH (08:23)
[2017-03-12] MEDS: CRESTOR PO SCH (08:23)
[2017-03-12] MEDS: ZYLOPRIM PO SCH (08:23)
[2017-03-12] MEDS: JANUVIA PO SCH (08:30)
[2017-03-12] MEDS: PATIENT'S OWN MED BOTH EYES SCH ×2 (09:28→21:50)
--- NOTE | 2017-03-12 11:07 | PROGRESS NOTE ---
DATE: 03/12/2017 SUBJECTIVE: Interval history was reviewed. Patient was admitted by Dr. Cuevas last night. He was seen for dizzy spell, due to hypotension after dialysis. He was seen at Dr. Taveras's office and blood pressure was 60/40. He was given IV fluids, and admitted in the ICU. REVIEW OF SYSTEMS: No dizzy, no headache. Cardiopulmonary: No chest pain, shortness of breath. No fever. GI: No nausea, vomiting, abdominal pain. No altered bowel habits. No bleeding per rectum other than hemorrhoids and a rash around the groin is improving. No swelling of legs. PAST MEDICAL HISTORY, PAST SURGICAL HISTORY, MEDICINES: Were reviewed. PHYSICAL EXAMINATION: Vitals: He is afebrile. Vitals are 97/51. Nasal cannula 2 L. 5 feet 7 inches, 270 pounds. HEENT: Within normal limits. Neck: Supple. No lymphadenopathy. No goiter. Chest: Clear. Heart: Sounds are regular. Abdomen: Belly is soft, nontender. Good bowel sounds. Rash around the groin is much improved. The ulcers are healing pretty good and seborrheic keratosis mole present in the right groin and no peripheral edema. Neurologic: No focal deficits. INVESTIGATIONS: CBC is normal. SMA 7, creatinine 6.8. ASSESSMENT AND PLAN: 1. Hypotension due to postdialysis and continued orthostatic blood pressure. He is due for dialysis in the morning. Clinically there are no signs of bleeding or sepsis noted. Recheck the orthostatic every 12 hours. If he is stable will go to the floor. 2. Tenia cruris with secondary bacterial infection is improving. 3. Diabetes is doing very well. Continue on sliding scale with insulin coverage. 4. Gout. On Zyloprim. Hold the atenolol until the blood pressure is stable and reconcile home medications. LEVEL OF DOCUMENTATION: 25 minutes. cc: Mckay Wang MD
--- NOTE | 2017-03-12 15:22 | CONSULTATION ---
DATE OF CONSULTATION: 03/12/2017 REASON FOR ADMISSION: Weakness with hypotension. TIME SEEN: 0745. CONSULTING PHYSICIAN: Dr. Cuevas. REASON FOR CONSULT: End-stage renal disease with assistance with medical management. HISTORY OF PRESENT ILLNESS: Mr. Ordonez is a 66-year-old male who is known to our outpatient services for hemodialysis on Saturday, Saturday, Saturday at the [facility]. Patient subsequently underwent his normal dialysis treatment yesterday. He had 2.7 kg set for pull. Because he had thought he had extra swelling on he had requested that they pull greater than 0.5 extra. Patient normally runs a low blood pressure of 89 to the high 90s systolic while on dialysis. This was marginally low, within his range upon discontinuation. After dialysis patient had an appointment with Dr. Taveras. When he presented to the office he stated that he felt weak and felt like he was going to pass out. They could not obtain a blood pressure. He was transferred to [facility]'s Emergency Department. He was given 2 L of fluid for resuscitation. He was then sent to ICU for further monitoring and evaluation. During the evaluation in the emergency room. His family did note that he had left arm weakness and a droop to his right eyelid, which was evaluated and monitored overnight without any further presentation. He denies chest pain. No increased work of breathing. No nausea, vomiting, or diarrhea. Weakness has resolved. Blood pressure is improved. No fever or chills noted. PAST MEDICAL HISTORY: End-stage renal disease with hemodialysis on Saturday, Saturday, Saturday at the [facility]. External hemorrhoids, now followed by Dr. Taveras. Mild cognitive impairment, type 2 diabetes mellitus with insulin dependence, hypertension, gastroesophageal reflux, glaucoma, obesity, gout, hyperlipidemia, hypothyroidism, peripheral neuropathy, history of tinea cruris with a secondary bacterial infection recently treated in the last 2-4 weeks with 2 hospitalizations, followed by Dr. Virk. He also has anemia of chronic disease and osteodystrophy of chronic disease. PAST SURGICAL HISTORY: Fistula placement to the left forearm, C-spine fusion, history of penile and reversal, bladder neck repair. FAMILY HISTORY: Kidney disease was several first-degree relatives. Diabetes in first degree relatives. Mother of lung cancer. SOCIAL HISTORY: Patient is . He lives with his spouse. He has family who are attentive to his care. He is a nonsmoker. Denies alcohol or illicit drug use. REVIEW OF SYSTEMS: Times 10 with pertinent positives listed above in the HPI. CURRENT ALLERGIES: Listed as no known drug allergies. HOME MEDICATIONS: Januvia, atenolol, Singulair, Prilosec, gabapentin, Crestor, levothyroxine, Lantus, fish oil, Simbrinza bromide eyedrops, allopurinol, Renvela, Celebrex. He is also on [place]. VITAL SIGNS: Most recent vital signs, temperature 97.1 degrees, blood pressure 159/77, heart rate 60, respirations 16. He is on 2 L nasal cannula. Last recorded saturation 99%. He has had 340 in. He has had 0 recorded out. LABS: Sodium 135, potassium 4.8, chloride 90, CO2 21, BUN 19, creatinine 6.8, glucose 97, anion gap 24, calcium 10.5, albumin 3.8. White count 10.68, hemoglobin 13, hematocrit 43.2, with a platelet count of 192,000. He has a PT of 10.8, INR 1.03, PTT 29.7, with a positive troponin secondary to recent hemodialysis to fistula. PHYSICAL EXAMINATION: General: This is a 66-year-old male. He is currently resting in bed. He is on the side of the bed. He has been taking lying, sitting, and standing blood pressures and these have been tolerated well. He is in no acute distress. Skin: Warm and dry. HEENT: Normocephalic, atraumatic. Conjunctivae pale. He has BITA. Mucous membranes moist. Neck: Supple. Trachea midline. No JVD. Cardiovascular: Regular rate and rhythm. He has a soft systolic murmur. Lungs: Clear to auscultation anteriorly. Equal excursion. Abdomen: Round, soft, nontender. Positive bowel sounds. Genitourinary: Not inspected. Extremities: Fistula to the left upper arm. Trace pretibial edema to the lower extremities. Positive venous stasis. No clubbing or cyanosis. Neurological: Alert and oriented x3. Able to assist with exam. ASSESSMENT AND PLAN: 1. End-stage renal disease. Patient had his routine dialysis treatment yesterday. Unfortunately, he was pulled below his dry weight. We will have them reset his dry weight upon discharge. We will plan for dialysis in the morning if patient remains here. Otherwise patient is instructed to go to his outpatient dialysis as instructed for routine prescription. 2. Hypotension. This has resolved. Blood pressure medications were actually held this a.m. 3. Recent tinea cruris secondary to bacterial infection. He does remain on oral antibiotics. He is off his IV. 4. Electrolytes, acid-base balance, and anemia. These all remain within normal limits. I would like to thank you for allowing us to follow with this patient. Dictated by LALA Medellin for Cresencio Rivera MD cc: LALA Medellin MD Jagan Reddy, MD
[2017-03-12] MEDS ORDERED: NS 500 ML IV ONE (21:25)
[2017-03-12] MEDS: LANTUS SUBQ SCH (21:53)
[2017-03-12] MEDS ORDERED: INSULIN PEN NEEDLES ONE (22:25)
[2017-03-12] MEDS: TYLENOL PO PRN (23:39)
[2017-03-13] MEDS: NS 1,000 ML IV SCH ×3 (05:30→18:07)
[2017-03-13] MEDS: PRILOSEC PO SCH (06:36)
[2017-03-13] MEDS: SYNTHROID PO SCH (06:36)
[2017-03-13] MEDS: HUMULIN R SUBQ SCH ×4 (06:36→21:44)
[2017-03-13 07:47] LABS: POTASSIUM 4.8 mmol/L (3.5-5.1)
[2017-03-13] MEDS ORDERED: TIGHT: 0.2 ML/HR MISC PRN (08:12)
[2017-03-13] MEDS ORDERED: HEPARIN IV PRN (08:12)
[2017-03-13] MEDS ORDERED: NS 2,000 ML MISC PRN (08:12)
[2017-03-13] MEDS: NEURONTIN PO SCH (08:17)
[2017-03-13] MEDS: SINGULAIR PO SCH (08:17)
[2017-03-13] MEDS: CELEBREX PO SCH (08:17)
[2017-03-13] MEDS: FISH OIL CONCENTRATE PO SCH (08:17)
[2017-03-13] MEDS: CRESTOR PO SCH (08:17)
[2017-03-13] MEDS: RENAGEL PO SCH ×3 (08:17→16:44)
[2017-03-13] MEDS: JANUVIA PO SCH (08:17)
[2017-03-13] MEDS: ZYLOPRIM PO SCH (08:18)
[2017-03-13] MEDS ORDERED: HEPARIN ONE (08:39)
[2017-03-13] MEDS ORDERED: NS 2,000 ML ONE (08:39)
--- NOTE | 2017-03-13 09:15 | PROGRESS NOTE ---
DATE: 03/13/2017 SUBJECTIVE: The patient is transferred out of the ICU. Blood pressure is low. Getting IV fluids and he is due for dialysis. The patient denies of any fever or bleeding per rectum. REVIEW OF SYSTEMS: None reported. OBJECTIVE: Vital Signs: Blood pressure was 84/42. HEENT: Exam within normal limits. Neck: Supple. No lymphadenopathy. Chest: Clear. Heart: Sounds are regular. Abdomen: Belly is soft, nontender. Good bowel sounds. Neurologic: No obvious focal deficits. INVESTIGATIONS: SMA 7: Sodium 134, potassium 4.8, BUN 39, creatinine 9.3, albumin 3.0. ASSESSMENT AND PLAN: 1. Hypotension. We will closely monitor for any signs of bleeding. Check the complete blood count in the morning. Intravenous fluids. 2. End-stage kidney disease on dialysis. We will adjust volume status during hemodialysis. 3. Tinea cruris is improving. LEVEL OF DOCUMENTATION: 15 minutes. cc: Mckay Wang MD
--- NOTE | 2017-03-13 15:19 | PROGRESS NOTE ---
DATE: 03/13/2017 SUBJECTIVE: Mr. Ordonez is resting quietly in bed. He has complaints of receiving IV fluids for his low blood pressure and having greater than 4 kg above his dry weight for dialysis today. He denies any increased work of breathing or chest pain. OBJECTIVE: His most recent vital signs are temperature 98.3 degrees, blood pressure 84/42, heart rate 57, respirations are 18. He is on room air. Last recorded saturation 100%. He has had 240 in. He has had 0 recorded out with need for dialysis. LABS: Sodium 134, potassium 4.8, chloride 95, CO2 22, BUN 39, creatinine 9.3, glucose is 89. Anion gap 17, calcium 9, phosphorus 6.1, albumin 3. Previous hemoglobin 13 on the 10th. PHYSICAL EXAMINATION: General: This is a 66-year-old male. He is currently resting in bed. He is in no acute distress. Skin: Warm and dry. HEENT: Normocephalic, atraumatic. Conjunctiva is pale. He has BITA. Mucous membranes are moist. Neck: Supple. Trachea midline. No JVD. Cardiovascular: He is regular rate and rhythm. He has a soft systolic murmur. No gallop. Lungs: Clear to auscultation anteriorly. Equal excursion on room air. Abdomen: Large, obese, round, soft, nontender positive bowel sounds. Genitourinary: Not inspected. Minimal void with dialysis assist. Integumentary: No rashes or lesions noted. His groin has not been inspected. Neurological: Alert and oriented x3. No deficits are noted. ASSESSMENT AND PLAN: 1. End-stage renal disease. Patient is due for his routine dialysis treatment today. He has 4 kg above his dry weight which is above his maximum gain on a routine basis on an outpatient. We will place him on a 2 K bath. He is to dialyze for 3.5 hours. We will attempt to pull him to his dry weight with some adjustment. 2. Hypotension. Patient has been receiving IV fluids for his hypotension. Blood pressure medications have currently been held. 3. Electrolytes. These are stable. 4. Acid-base balance. This is stable. 5. Anemia. It is at target. 6. Tinea cruris. This is improving followed by the primary care team. I would to thank you for allowing us to follow with this patient. Dictated by LALA Medellin for Cresencio Rivear MD cc: LALA Medellin MD Jagan Reddy, MD
[2017-03-13] MEDS: PATIENT'S OWN MED BOTH EYES SCH ×2 (16:23→21:44)
[2017-03-13] MEDS: ANUSOL-HC CREAM PR SCH ×2 (16:23→21:43)
[2017-03-13] MEDS: TYLENOL PO PRN (17:52)
[2017-03-13] MEDS: LANTUS SUBQ SCH (21:43)
[2017-03-14 06:59] LABS: MANUAL DIFF NEEDED? NO
[2017-03-14] MEDS: HUMULIN R SUBQ SCH ×4 (07:03→21:20)
[2017-03-14] MEDS: SYNTHROID PO SCH (07:03)
[2017-03-14] MEDS: PRILOSEC PO SCH (07:03)
[2017-03-14 07:05] LABS: BASO% 0.4 % (0.0-0.8); EOS# 0.99 X1000 (0.0-0.7); EOS% 14.7 % (0.0-10.0); HEMATOCRIT 37.7 % (42.0-52.0); HEMOGLOBIN 11.3 g/dL (14.0-18.0); IMM GRAN# 0.02 X1000 (0.0-0.04); IMM GRAN% 0.3 % (0.0-0.5); LYMPH# 3.18 X1000 (1.2-3.4); LYMPH% 47.3 % (20.5-51.1); MCH 27.6 PG (27-31); MCV 92.2 FL (81-99); MONO# 0.52 X1000 (0.11-0.59); MONO% 7.7 % (1.7-9.3); MPV 11.6 FL (7.4-10.4); NEUT% 29.6 % (42.2-75.2); PLT 113 X1000 (130-400); RBC 4.09 XMIL (4.7-6.1)
[2017-03-14 07:26] LABS: CALCIUM 9.6 mg/dL (8.8-10.2); POTASSIUM 4.5 mmol/L (3.5-5.1)
--- NOTE | 2017-03-14 08:46 | PROGRESS NOTE ---
DATE: 03/14/2017 SUBJECTIVE: Patient is doing very well. Blood pressure is slowly coming up. He is refusing for IV fluids. I's and O's are negative -1.9. REVIEW OF SYSTEMS: He complains of some knots in the left buttock and he is in the bathroom. PHYSICAL EXAMINATION: Chest is clear. Heart sounds are regular. Belly is soft, nontender. Good bowel sounds. No neurological deficits. INVESTIGATIONS: CBC: White cell count 6.7, hematocrit 37, platelets 113,000. SMA-7: Sodium 137, potassium 4.5 and BUN 27, creatinine 7.1, glucose 109. ASSESSMENT AND PLAN: 1. Hypotension due to extra fluid loss from the dialysis. Gentle hydration 50 mL/hour. Check the orthostatic. 2. Tinea cruris is stable and monitoring his blood pressure in the next 24 hours and then, if stable. Will be discharged. LEVEL OF DOCUMENTATION: 15 minutes. cc: Mckay Wang MD
[2017-03-14] MEDS: FISH OIL CONCENTRATE PO SCH (08:51)
[2017-03-14] MEDS: ZYLOPRIM PO SCH (08:51)
[2017-03-14] MEDS: SINGULAIR PO SCH (08:51)
[2017-03-14] MEDS: NEURONTIN PO SCH (08:51)
[2017-03-14] MEDS: CELEBREX PO SCH (08:51)
[2017-03-14] MEDS: JANUVIA PO SCH (08:51)
[2017-03-14] MEDS: CRESTOR PO SCH (08:51)
[2017-03-14] MEDS: RENAGEL PO SCH ×3 (08:58→17:21)
[2017-03-14] MEDS: ANUSOL-HC CREAM PR SCH ×4 (10:20→21:20)
[2017-03-14] MEDS: PATIENT'S OWN MED BOTH EYES SCH ×2 (10:20→21:23)
[2017-03-14] MEDS: TYLENOL PO PRN ×2 (10:53→17:03)
--- NOTE | 2017-03-14 13:38 | PROGRESS NOTE ---
DATE: 03/14/2017 DATE SEEN: 03/14/2017 TIME SEEN: 08:30 SUBJECTIVE: Mr. Ordonez is sitting on the side of the bed. He is eating his breakfast. He complains of receiving fluid volume for hypotension. His medications have been held. Blood pressure has improved. He states that he would like to go home. OBJECTIVE: Vital Signs: His most recent vital signs are temperature 97.9 degrees, blood pressure 105/50, heart rate 60, respirations 18. He is on room air. Last recorded saturation 100%. He has had 760 in. He has had 2750 out on dialysis. LABS: Sodium 137, potassium 4.5, chloride 96, CO2 26, BUN 27, creatinine 7.1. Glucose 109. Anion gap 15, calcium 9.6, phosphorus 5.2, albumin 3. White count 6.72 hemoglobin 11.3, hematocrit 37.7, with a platelet count of 113,000. PHYSICAL EXAMINATION: General: This is a 66-year-old male. He is sitting on the side of the bed. He is in no acute distress. Skin: Warm and dry. HEENT: Normocephalic, atraumatic. Conjunctiva is pink. He has BITA. Mucous membranes moist. Neck: Supple. Trachea midline. No jugular venous distention. Cardiovascular: Regular rate and rhythm. Soft systolic murmur. No gallop. Lungs: Clear to auscultation anteriorly. Equal excursion on room air. Abdomen: Obese, soft, round, nontender. Positive bowel sounds. Genitourinary : Not inspected. Patient does have two boil-type areas to his right mid-epigastric side area. These are new. The patient has been on antibiotics for tinea cruris with Dr. Virk following in the past. We will consult and have him evaluate. Extremities: These continue with trace pretibial edema. Integumentary: No rashes or lesions noted, except for the boils to the right mid-epigastric patient's side area. Neurological: Alert and oriented x3. ASSESSMENT AND PLAN: 1. End-stage renal disease. Patient is due for his routine dialysis treatment in the a.m. We will plan for dialysis here; otherwise, if patient is discharged he is go to the outpatient clinic for his routine prescription. 2. Electrolytes acid-base balance and anemia. These remain stable. 3. Low blood pressure. This has slowly improved. Patient has refused last several fluid volume resuscitations. Patient's blood pressure remains stable at 102/50s. 4. Hypotension. We will order an echocardiogram if not recently done in the past year. We will re-evaluate if there is any indications for cardiac intervention. I would to thank you for allowing us to follow with this patient. Dictated by LALA Medellin for Cresencio Rivera MD cc: LALA Medellin MD Jagan Reddy, MD [facility]
[2017-03-14] MEDS: NS 1,000 ML IV SCH (13:40)
[2017-03-14] MEDS ORDERED: GOLYTELY PO ONE (17:39)
[2017-03-14] MEDS: LANTUS SUBQ SCH (21:20)
[2017-03-15] MEDS: SYNTHROID PO SCH (06:25)
[2017-03-15] MEDS: HUMULIN R SUBQ SCH (06:25)
[2017-03-15] MEDS: PRILOSEC PO SCH (06:25)
[2017-03-15 06:26] VITALS: BP 126/64
[2017-03-15] MEDS ORDERED: NS 2,000 ML ONE (07:30)
[2017-03-15] MEDS ORDERED: HEPARIN ONE (07:30)
--- NOTE | 2017-03-15 07:34 | Diag Imaging Result Doc PS360 ---
EXAM: PELVIS INDICATION: painful buttock masses TECHNIQUE: One view COMPARISON: None. FINDINGS: The hip joint spaces appear to be preserved. There are degenerative changes at the symphysis pubis and the SI joints. There is bone spurring seen at the iliac crests. There are degenerative changes at the lower lumbar spine. No discrete fracture or dislocation is appreciated. There is extensive atherosclerotic calcification involving the pelvis and upper thighs. By plain radiograph, surrounding soft tissues are essentially unremarkable, otherwise. IMPRESSION: Chronic changes as described. No definite acute osseous abnormality. Electronically signed by Rajat Britt 03/15/2017 7:32 AM
[2017-03-15 07:39] LABS: ALBUMIN 3.3 g/dL (3.5-5.0); CALCIUM 9.6 mg/dL (8.8-10.2); POTASSIUM 4.8 mmol/L (3.5-5.1)
[2017-03-15] MEDS ORDERED: HEPARIN IV PRN (08:03)
[2017-03-15] MEDS ORDERED: TIGHT: 0.2 ML/HR MISC PRN (08:03)
[2017-03-15] MEDS ORDERED: NS 2,000 ML MISC PRN (08:03)
[2017-03-15] MEDS ORDERED: DIPRIVAN 1% ONE (10:33)
[2017-03-15] MEDS ORDERED: FENTANYL ONE (10:33)
[2017-03-15] MEDS ORDERED: XYLOCAINE-MPF 2% ONE (10:33)
--- NOTE | 2017-03-15 13:44 | PROGRESS NOTE ---
DATE: 03/15/2017 SUBJECTIVE: Patient is sitting up in bed. He is quite agitated that he has to go for a colonoscopy today. He states that the bowel prep has caused exacerbation of his hemorrhoids. OBJECTIVE: Vital Signs: Temperature 97.9 degrees, pulse 62, respiratory rate 19, blood pressure 126/64. Intake 950 mL. Output 200 mL. General: Middle-aged male sitting up in bed. He is awake, alert, and quite agitated. HEENT: Normocephalic, atraumatic. Oral mucosa moist. Neck: Supple. Trachea midline. No JVD. Cardiovascular: Regular rate and rhythm. He has a systolic murmur noted. No S3 or S4. Pulmonary: He has equal excursion. He is clear bilaterally. Abdomen: Soft, round. Positive bowel sounds. : Not inspected. Extremities: He has trace to 1+ pretibial edema. No clubbing, cyanosis. He has some dependent edema to the hands noted. Integumentary: Skin is warm and dry. Otherwise, does have a rash noted the epigastric area. LAB DATA: WBC of 6.7, hemoglobin 11.3. Sodium 133, potassium 4.8, CO2 22, BUN 35, creatinine 8.4, albumin 3.3. ASSESSMENT AND PLAN: 1. End-stage renal disease management. Today is his routine dialysis day. We will dialyze him on a 2 K bath/UF to dry weight only/3.5 hour treatment. 2. Electrolytes, acid-base balance, anemia. See above for plan. 3. Hypotension. His blood pressure is in target. 4. Question of gastrointestinal bleed, abdominal pain. The patient is to go for a colonoscopy today. We will dialyze him after. 5. Disposition. We understand the patient will be discharged home after his colonoscopy and dialysis. Dictated by LALA Montero for Cresencio Rivera MD cc: MD Mckay Pimentel MD
[2017-03-15] MEDS: FISH OIL CONCENTRATE PO SCH (14:58)
[2017-03-15] MEDS: NEURONTIN PO SCH (14:58)
[2017-03-15] MEDS: RENAGEL PO SCH (14:58)
[2017-03-15] MEDS: JANUVIA PO SCH (14:58)
[2017-03-15] MEDS: CRESTOR PO SCH (14:58)
[2017-03-15] MEDS: ZYLOPRIM PO SCH (14:58)
[2017-03-15] MEDS: SINGULAIR PO SCH (14:58)
[2017-03-15] MEDS: CELEBREX PO SCH (14:59)
[2017-03-15] MEDS: ANUSOL-HC CREAM PR SCH (14:59)
--- NOTE | 2017-03-16 11:07 | DISCHARGE SUMMARY ---
ADMISSION DATE: 03/11/2017 DISCHARGE DATE: 03/15/2017 DISCHARGING DIAGNOSIS: Hypotension due to over diuresis from the dialysis machine. SECONDARY DIAGNOSES: 1. [id number]. 2. Tenia cruris with secondary bacterial infection, improving. 3. End-stage kidney disease, on dialysis. 4. Mild cognitive impairment. 5. Type 2 diabetes. 6. Hypertension. 7. Acid reflux disease. 8. Glaucoma. 9. Obesity. 10. Gout. 11. Hyperlipidemia. 12. Hypothyroidism. 13. Peripheral neuropathy. 14. Dystrophic calcification in the buttocks muscle. CONSULTATIONS: 1. Dr. Rusty Carrasquillo. 2. Dr. Cresencio Rivera. 3. Dr. Danie Virk. PROCEDURES: 1. Intermittent dialysis adjusting the body weight. COLONOSCOPY FINDINGS: [id number]. BRIEF HISTORY: Please see the H and P that was done by Dr. Oscar Cuevas. In brief, he is a 66- year-old -[place] male with the above problems admitted to the hospital after the dialysis resulting to low blood pressure. The patient was asked to take more fluid off the machine. As a result, blood pressure was 60/40 associated with dizziness. During the hospital course, he was admitted in ICU. There were no signs of sepsis or active bleeding noted. The patient was given gentle hydration and hemodynamics slowly came back normal. He was complaining of swelling on the buttocks muscles and also intermittent bleeding. He wants more hydrocortisone suppository. He was consulted by Dr. Taveras and scheduled for colonoscopy by Dr. Carrasquillo. He had EGD done by Dr. Taveras on 02/25/2017. I was told he has [id number]. He also complains of nodules on the buttock which are very hard, indurated, and tender. I did discuss with Dr. Virk it probably was dystrophic calcification nodules. We will continue to watch. Anyhow, he has been scheduled to see as an outpatient by Dr. Funk for these nodules, as well as [id number]. LABORATORY DATA: Labs at the time of discharge, as follows: CBC: White cell count 6.7, hematocrit 37, platelets 113,000. SMA-7: Sodium 133, potassium 4.8, chloride 93. BUN 35, creatinine 8.4. Calcium 9.6, albumin 3.3. The patient was discharged home after colonoscopy and the dialysis and his hemodynamics were stable. Outpatient followup with Dr. Funk. Continue the hemodialysis with Dr. Rivera. DISCHARGE INSTRUCTIONS AND MEDICATIONS: 1. Januvia 100 daily. 2. Atenolol 100 daily. 3. Singulair 10 daily. 4. Prilosec 20 daily. 5. Gabapentin 100 daily. 6. Crestor 20 daily. 7. Synthroid 75 mcg daily. 8. Lantus 40 units subcutaneous at bedtime. 9. Fish oil 1 capsule daily. 10. Simbrinza 1 drop in both eyes b.i.d. 11. Allopurinol 100 daily. 12. Renvela 800 1 tablet t.i.d. 13. Celebrex 100 daily. 14. Hydrocodone as needed. 15. Hydrocortisone cream as directed. FOLLOWUP: Follow up with Dr. Funk and Dr. Rivera. cc: MD Rusty Salazar MD Reginald D. Gladish, MD Leroy F. Harris, MD MTDD
--- NOTE | 2017-03-17 14:59 | OPERATIVE NOTE ---
PROCEDURE DATE: 03/15/2017 PREOP DIAGNOSES: 1. Tenesmus. 2. Painful defecation and discharge. 3. History Of hemorrhoids. POSTOP DIAGNOSES: 1. Several fistulae in perineum. 2. Crohn's colitis. DESCRIPTION OF PROCEDURE: After informed consent and adequate intravenous sedation by anesthesia the perineum examined. Patient has 4 different areas of fistulae with discharge. At this point the scope introduced. Patient also has some internal hemorrhoids. Scope is advanced all the way into the cecum. Terminal ileum does not have any Crohn's. Patient has patchy areas of colitis suggestive of Crohn disease. Retroflex view did not reveal any areas where I could see direct connection but patient also has large internal hemorrhoids. The scope is then withdrawn. The patient tolerated the procedure well without any immediate complication. I have talked to Dr. Wang. We are discharging him on Flagyl 500 three times a day. I have not started him on steroids yet. I have talked to Dr. Wang, will see him in a week and we will follow up and manage this more aggressively depending on his clinical response. cc: MD Mckay Ricks MD
== END 2017-03-15 15:20 | disposition home health service (06) ==
LOC: ED 15:28 → ICU 18:56 → 3N 03-12 10:46
PROVIDERS: ADMIT Internal Medicine; ATTEND Internal Medicine

== ENCOUNTER 2017-03-21 14:34 | Inpatient (IN) ==
[2017-03-21] MEDS ORDERED: ASPIRIN PO STA (15:00)
--- NOTE | 2017-03-21 15:16 | Diag Imaging Result Doc PS360 ---
EXAM: CHEST-PORTABLE HISTORY: low pressure TECHNIQUE: AP portable upright at 1512 COMMENT: The inspiration is suboptimal. There is no evidence of acute cardiac or pulmonary disease. Overall considering the degree of inspiration there is been no significant change since 03/11/2017. IMPRESSION: Poor inspiration. No acute disease. Electronically signed by Karel Leblanc 03/21/2017 3:14 PM
[2017-03-21 15:20] LABS: MANUAL DIFF NEEDED? NO
[2017-03-21 15:26] LABS: BASO% 0.8 % (0.0-0.8); EOS# 0.45 X1000 (0.0-0.7); IMM GRAN# 0.03 X1000 (0.0-0.04); IMM GRAN% 0.4 % (0.0-0.5); LYMPH# 3.98 X1000 (1.2-3.4); LYMPH% 53.3 % (20.5-51.1); MCH 27.8 PG (27-31); MCV 92.6 FL (81-99); MONO# 0.59 X1000 (0.11-0.59); MONO% 7.9 % (1.7-9.3); MPV 11.8 FL (7.4-10.4); NEUT% 31.6 % (42.2-75.2); PLT 124 X1000 (130-400); RBC 4.32 XMIL (4.7-6.1)
--- NOTE | 2017-03-21 15:26 | EKG Report ---
Test Performed on : 03/21/2017 2:47:58 PM Test Reason : Chest Pain Blood Pressure : / mmHG Vent. Rate : 068 BPM Atrial Rate : 068 BPM P-R Int : 220 ms QRS Dur : 118 ms QT Int : 442 ms P-R-T Axes : 085 -40 021 degrees QTc Int : 469 ms Sinus rhythm. with 1st degree AV block. Left axis deviation Pulmonary disease pattern Left ventricular hypertrophy with QRS widening Abnormal ECG When compared with ECG of 11-MAR-2017 16:03, (Unconfirmed) No significant change was found Unconfirmed Result
[2017-03-21 15:33] LABS: INR 1.02; PROTIME 10.7 Seconds (9.2-11.7); PTT 28.2 Seconds (22.0-36.0)
[2017-03-21 15:39] LABS: AGAP 18; ALBUMIN 3.5 g/dL (3.5-5.0); ALKALINE PHOSPHATASE 536 U/L (32-122); BUN 24 mg/dL (8-22); CALCIUM 8.9 mg/dL (8.8-10.2); CHLORIDE 95 mmol/L (98-107); CK PROFILE 75 U/L (24-204); COSMO 281; GOT 14 U/L (10-34); GPT < 5 U/L (10-44); MAGNESIUM 1.8 mg/dL (1.5-2.7); POTASSIUM 4.2 mmol/L (3.5-5.1); SODIUM 139 mmol/L (136-145); TCO2 26 mmol/L (25-35); TOTAL BILIRUBIN 0.31 mg/dL (0.20-1.00); TOTAL PROTEIN 7.1 g/dL (6.3-8.3)
--- NOTE | 2017-03-21 16:01 | ED EKG INTERP ---
This chart was entered by Shayy Hartmann Scribe, acting as scribe for Manuel Ogden MD. EKG Interpretation - EKG Time of EKG reading by physician:: 14:47 EKG Read and Signed by:: Manuel Ogden EKG Interpretation (*Must complete 3 of following elements*): Abnormal Rate: 68 Rhythm: sinus rhythm w/ 1st degree AV block [place]: left (deviation) QRS: other (QRS WIDENING) AR Interval: normal ST Wave: normal This chart was documented by the indicated scribe, (Shayy Hartmann Scribe) and accurately reflects the services I performed and decisions made by Melvi slade Christophe I, MD, as attested by the provider's signature.
[2017-03-21] MEDS: HUMALOG SUBQ SCH (21:39)
[2017-03-21] MEDS: PATIENT'S OWN MED BOTH EYES SCH (21:40)
[2017-03-21] MEDS: LANTUS SUBQ SCH (21:45)
[2017-03-21] MEDS: CRESTOR PO SCH (22:09)
[2017-03-21] MEDS: ANUSOL-HC CREAM PR SCH (22:09)
[2017-03-22 05:45] LABS: MANUAL DIFF NEEDED? NO
[2017-03-22 05:51] LABS: BASO% 0.3 % (0.0-0.8); EOS% 7.5 % (0.0-10.0); HEMATOCRIT 37.4 % (42.0-52.0); HEMOGLOBIN 11.4 g/dL (14.0-18.0); IMM GRAN# 0.02 X1000 (0.0-0.04); IMM GRAN% 0.3 % (0.0-0.5); LYMPH# 3.49 X1000 (1.2-3.4); LYMPH% 52.5 % (20.5-51.1); MCH 27.9 PG (27-31); MCHC 30.5 g/dL (33-37); MCV 91.7 FL (81-99); MONO# 0.51 X1000 (0.11-0.59); MONO% 7.7 % (1.7-9.3); MPV 11.1 FL (7.4-10.4); NEUT% 31.7 % (42.2-75.2); PLT 116 X1000 (130-400); RBC 4.08 XMIL (4.7-6.1)
[2017-03-22 06:09] LABS: AGAP 17; ALBUMIN 3.3 g/dL (3.5-5.0); ALKALINE PHOSPHATASE 491 U/L (32-122); BUN 31 mg/dL (8-22); CALCIUM 8.6 mg/dL (8.8-10.2); CHLORIDE 98 mmol/L (98-107); COSMO 289; GOT 11 U/L (10-34); GPT < 5 U/L (10-44); POTASSIUM 4.1 mmol/L (3.5-5.1); SODIUM 141 mmol/L (136-145); TCO2 26 mmol/L (25-35); TOTAL BILIRUBIN 0.18 mg/dL (0.20-1.00); TOTAL PROTEIN 6.4 g/dL (6.3-8.3)
[2017-03-22] MEDS: HUMALOG SUBQ SCH ×4 (06:24→21:43)
[2017-03-22] MEDS ORDERED: TIGHT: 0.2 ML/HR MISC PRN (06:47)
[2017-03-22] MEDS ORDERED: NS 2,000 ML MISC PRN (06:47)
[2017-03-22] MEDS ORDERED: HEPARIN IV PRN (06:47)
[2017-03-22] MEDS ORDERED: NS 2,000 ML ONE (06:51)
[2017-03-22] MEDS ORDERED: HEPARIN ONE (06:51)
[2017-03-22] MEDS: RENAGEL PO SCH ×3 (09:48→16:57)
[2017-03-22] MEDS: ANUSOL-HC CREAM PR SCH ×3 (09:48→17:13)
--- NOTE | 2017-03-22 11:55 | HISTORY AND PHYSICAL ---
CHIEF COMPLAINT: Hypotension. HISTORY OF PRESENT ILLNESS: A 66-year-old, gentleman patient of Amy Wang MD was sent to the emergency room because of low blood pressure. The patient came for preoperative blood tests. The patient was in the wheelchair. He felt weak, slumped over. They checked his blood pressure and it was 78 systolic. Patient was sent to the emergency room. In the emergency room, his blood pressure went up to 94 systolic and later on 108 without any intervention. The patient claims he does have episodes of low blood pressure off and on. He did not go for dialysis today. It is due tomorrow. The patient had some flank pain which is more musculoskeletal. The patient claims more pain when he coughs, turns around or sneezes. He denied any trauma. No nausea, vomiting, diarrhea to attribute to volume depletion. No history of major bleeding per rectum. The patient does have some bleeding per rectum due to his hemorrhoids. No hematemesis or hemoptysis. No typical chest pain, palpitation, orthopnea or PND. The patient claims he is not on any blood pressure medicine, but reviewing his medication list, the patient is on atenolol 100 mg a day. No heat or cold intolerance. No history of high-grade fever, chills to attribute any sepsis. Known case of diabetes mellitus. The patient is on insulin and Januvia, tolerating medication well. No major hypoglycemic episode. No further history available at this time. ALLERGIES: No known drug allergy. CURRENT MEDICATIONS: Allopurinol, atenolol, Neurontin, Anusol HC cream, Lantus, Synthroid, Singulair, fish oil, Prilosec, Crestor, Renagel drops for in the eye for his glaucoma. Simbrinza eye drops. PAST MEDICAL HISTORY: Significant for hypertension, diabetes mellitus, hypothyroidism, rhinitis, end-stage renal disease, external hemorrhoid, history of gastritis and reflux disease, glaucoma, obesity, gout, peripheral neuropathy, mild cognitive impairment. PAST SURGICAL HISTORY: Patient has a fistula placed for his dialysis in the left arm. Cervical spine fusion done. The patient had penile implant and reversal. Bladder neck repair done. FAMILY HISTORY: Significant for chronic kidney disease, diabetes and his mother of lung cancer. SOCIAL HISTORY: . Lives with the . The patient is nonsmoker. Denied alcohol or substance abuse. REVIEW OF SYSTEMS: As per HPI. PHYSICAL EXAMINATION: GENERAL: Elderly gentleman in no acute distress. VITAL SIGNS: Blood pressure 108/64, pulse 68, respirations 16, temperature 97.5 degrees. SKIN: Senile turgor. No rash or petechiae. HEENT: Head atraumatic, normocephalic. [place] conjunctivae. Anicteric sclerae. Extraocular muscle movement normal. Fundus cannot be penetrated. Good oral hygiene. No tonsillopharyngeal congestion or exudate. Ears and nose benign. NECK: Supple. No JVD, thyromegaly or lymphadenopathy. CHEST: Bibasilar crepitation. No rales. CARDIOVASCULAR: S1 and S2 heard. 2/6 systolic murmur at the apex. No gallop or thrill. ABDOMEN: Soft, globular, bowel sounds present. No organomegaly or mass. Difficult to comment organomegaly. EXTREMITIES: No cyanosis, clubbing. No acute DVT. Evidence of chronic venous stasis. 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 RECTAL: Exam deferred. LABORATORY DATA: Hemoglobin 12, hematocrit 40, WBC count 4.74, platelet count 124,000. PT/INR 1.02. PTT was 28.2. BUN 24, creatinine 7.7. ProBNP was 3016. Alkaline phosphatase was 536. CONSIDERATION: 1. Hypotension, etiology not known. Clinically, no evidence of volume depletion. No history suggestive of myocardial infarction or infection. Possibility of autonomic insufficiency cannot be ruled out. 2. We will check him for adrenal insufficiency. His other problem includes end-stage renal disease on hemodialysis. 3. History of hypertension, gastritis and reflux disease, external hemorrhoid. History of gout, glaucoma. PLAN: Laboratory and medication noted. Continue current treatment. I am going to check cortisol level in the morning. Telemetry monitoring, monitor vital signs closely overall plan discussed with the patient and and they are in agreement. We are going to resume home medicine. I decreased dose of Lantus to 25 units. Atenolol to 50 mg a day. cc: MD Mckay Ruiz MD
[2017-03-22] MEDS: PATIENT'S OWN MED BOTH EYES SCH ×2 (12:17→21:44)
[2017-03-22] MEDS: NEURONTIN PO SCH (12:18)
[2017-03-22] MEDS: PRILOSEC PO SCH (12:18)
[2017-03-22] MEDS: SYNTHROID PO SCH (12:18)
[2017-03-22] MEDS: TENORMIN PO SCH (12:18)
[2017-03-22] MEDS: SINGULAIR PO SCH (12:18)
[2017-03-22] MEDS: FISH OIL CONCENTRATE PO SCH (12:18)
[2017-03-22] MEDS: ZYLOPRIM PO SCH (12:19)
--- NOTE | 2017-03-22 14:51 | CONSULTATION ---
DATE OF CONSULTATION: 03/22/2017 REASON FOR CONSULTATION: End-stage kidney disease and assistance with management. ATTENDING PHYSICIAN: Dr. Don Wang. CONSULT PLACED BY: Dr. Vasquez. HISTORY OF PRESENT ILLNESS: Mr. Ordonez is a 66-year-old man with obesity, diabetes, hypertension, end-stage kidney disease. He also has a history of gout, peripheral neuropathy, hyperlipidemia etc. He has been hospitalized twice recently with cellulitis in the inguinal region and then with GI bleeding. He had a plan for hemorrhoidectomy on Saturday with Dr. Funk. Dr. Funk is also concerned that there is a fistula that may need to be addressed by Dr. Brito. The patient was in the surgery preop area yesterday having his routine testing done in anticipation of his surgery. He became lightheaded and weak and sat down. Blood pressure was measured with systolic in the 70s. On this basis, he was moved over to the emergency room and subsequently admitted to the hospital. He has been dealing with this problem over the last several weeks to months. He has had several falls. He is quite weak and has frequent episodes of hypotension on dialysis such that all blood pressure medications have been discontinued. Despite this, his pressures remain low. Complicating this, he had significant problems with fluid retention and shortness of breath and on that basis, we have been attempting to improve his volume status with hemofiltration on dialysis. Again, this has been very limited because of his hypotension. He has no chest pain. No palpitations. No chills, fevers. PAST MEDICAL HISTORY: As above. HOME MEDICATIONS: Include sitagliptin, atenolol, montelukast, omeprazole, gabapentin, rosuvastatin, levothyroxine, insulin, fish oil, Simbrinza eye drops, allopurinol, sevelamer, hydrocortisone cream. ALLERGIES: None. SOCIAL HISTORY: He is and lives with his . She is also on dialysis. FAMILY HISTORY: Noncontributory otherwise. PHYSICAL EXAMINATION: Vital Signs: Blood pressure 124/81, heart rate 68, respirations 20, afebrile. Generally: He is an obese man in no acute distress. Skin: Warm and dry. HEENT: Conjunctivae are pink. Pupils are equal. Oropharynx is clear. Normal dentition. Normal tongue. Neck: Supple. Trachea is midline. Neck veins are not visible. Heart: PMI is not palpable. Regular rate and rhythm with no gallops or murmurs audible. Lungs: Have equal breath sounds. No crackles or wheezes. Abdomen: Obese and soft. Bowel sounds are present. No organomegaly, masses or bruits. Extremities: Have minimal edema trace and no clubbing or cyanosis. Neurologic Exam: Grossly nonfocal. LABORATORY DATA: Reviewed. IMPRESSION: 1. Orthostatic hypotension. Likely multifactorial but I expect that diabetic dysautonomia is his primary diagnosis. Agree with checking cortisol, thyroid function etc. Orthostatic blood pressures. If he has not had an echocardiogram recently this should be performed. Will request cardiology to evaluate him as well. He is requesting an evaluation at [facility]. If our initial evaluation does not disclose anything then we can certainly make those arrangements as an outpatient. 2. End-stage renal disease. He will have his routine hemodialysis today. 3. Electrolytes are in target. 4. Acid base in target. 5. Anemia is in target. No erythropoietin today. cc: MD Mckay Pimentel MD
--- NOTE | 2017-03-22 15:24 | CONSULTATION ---
DATE OF CONSULTATION: 03/22/2017 HISTORY: The patient is a 66-year-old -[place] gentleman who has end-stage renal disease on dialysis, hyperlipidemia, diabetes, hypothyroidism and has fistula perianal and Crohn's disease. Cardiology was consulted for hypotension. The patient, in the past, was on atenolol for his blood pressure, however, he states that he had not been taking atenolol for the last couple of months because his blood pressure would be low. He does not complain of any chest pain. He says with his low blood pressure he has felt weak. There are no palpitations. His main problem has been he has had perianal pain and has undergone colonoscopy and surgery for his fistula and Crohn's disease was planned the next Saturday. He denies any chest pain. He underwent dialysis today. REVIEW OF SYSTEMS: 14-point review of system was done. GI System as above. Cardiovascular System: There are no palpitations. He was also noted to have episode of low blood pressure of 78 systolic and was sent to the emergency room from doctor's office, associated with that he felt weak. Did not complain of any focal weakness to suggest CVA, TIA and did not have any associated palpitations or chest pains. System: There is no dysuria or hematuria. Respiratory System: There is no history of cough, expectoration, hemoptysis. There is no history of fevers or chills. PAST MEDICAL HISTORY: 1. Hypertension. 2. Diabetes. 3. Hypothyroidism. 4. Perianal fistula. 5. Internal hemorrhoids. 6. Crohn's disease. 7. Gastroesophageal reflux disease. 8. Peripheral neuropathy. 9. Mild cognitive impairment. 10. End-stage renal disease, on dialysis. 11. Gout. 12. Patient has fistula placed in the left arm for dialysis. 13. Cervical spine fusion surgery. 14. Penile implant and reversal. 15. Bladder neck repair. FAMILY HISTORY: Significant for chronic kidney disease, diabetes. SOCIAL HISTORY: Patient does not smoke. . Lives with his . Denies alcohol abuse. PHYSICAL EXAMINATION: Vital Signs: Blood pressure 108/64. Cardiovascular System: Normal jugular venous pressure. There is no thyromegaly. No carotid bruit. First and second heart sounds were heard. There is no S3 gallop. Respiratory System: Normal air entry. There is no crepitations or rhonchi. There was faint ejection systolic murmur under cardiovascular System. Abdomen: Soft, obese, nontender. There was no guarding or rigidity. Bowel sounds were heard. Extremities: Examination of his extremities revealed mild edema. HEENT: Atraumatic. Pupils were equal and reacting to light. LABORATORY EXAMINATION: Sodium 141, potassium 4.1. Creatinine 8.9, BUN 31. Hemoglobin 11.4. Platelet count of 116,000. WBC 6.6. ASSESSMENT AND PLAN: 1. Mr. Dominik Ordonez is a 66-year-old -[place]ish gentleman with history of hypertension, diabetes, hyperlipidemia, end-stage renal disease on dialysis. He is admitted with feeling weak and had an episode of low blood pressure systolic 78. He slumped over and subsequently was sent from doctor's office and admitted. From a cardiac standpoint, we will get an echocardiogram to reassess cardiac and valvular function. His last cardiac catheterization in 2000 revealed normal coronary arteries. However, we will also get a stress test to assess for and rule out ischemia as well. 2. As far as medications are concerned, he says he has not been taking atenolol; however, currently he is on atenolol 50 mg a day had on the lower blood pressures we will decrease his atenolol 25 mg a day. 3. He has perianal fistula and Crohn;s disease and surgery he states is planned for this coming Saturday and as part of evaluation of his symptoms and preoperative evaluation will plan for stress test on Saturday. Thank you for the consult. We will follow hospital course. cc: MD Mckay Mann MD
[2017-03-22] MEDS: NORCO-5 PO PRN ×2 (17:21→22:00)
--- NOTE | 2017-03-22 19:09 | PROGRESS NOTE ---
DATE: 03/22/2017 SUBJECTIVE: Interval history was reviewed last night. Patient was discharged last Saturday. I was told during this past week his blood pressure was getting low. He is asymptomatic other than dizziness. He was brought in last night. Admitted by Dr. Vasquez. He was examined in dialysis clinic. REVIEW OF SYSTEMS: Complaints of pain in the back. Blood pressure is low and otherwise no symptoms reported. PAST MEDICAL HISTORY, PAST SURGICAL HISTORY, MEDICINES: Were reviewed. PHYSICAL EXAMINATION: Vitals: Now stable. HEENT: Exam within normal limits. Neck: Supple. Chest: Clear. Heart: Sounds are regular. Abdomen: Belly is soft, obese, nontender. Good bowel sounds. Extremities: No peripheral edema. INVESTIGATIONS: CBC: White cell count 6.6, hematocrit 37, platelets 116. SMA 7 is normal, except BUN 31, creatinine 0.9. LFTs were normal. Alkaline phosphatase was high. ProBNP 3000. Cortisol level 4.9. ASSESSMENT AND PLAN: 1. Hypotension not over diuresis during dialysis. Rule out adrenal insufficiency. Baseline cortisol is low. We will do the cortisone stimulation test. Discontinue hydrocortisone suppository. 2. Rule out dysautonomia. Cardiology consult was obtained. Decrease the Tenormin 25 mg daily. 3. Type 2 diabetes. Well controlled on Lantus and Januvia. 4. Hypothyroidism, on Synthroid. 5. [id number]. Seen by Dr. Funk, who is doing surgery next Saturday. Discussed with Dr. Rivera on the patient the plan of care. 6. Rule out ischemic heart disease. Scheduled for Lexiscan by Dr. Rios as well as echocardiography. LEVEL OF DOCUMENTATION: 35 minutes. cc: Mckay Wang MD
[2017-03-22] MEDS: CRESTOR PO SCH (21:45)
[2017-03-22] MEDS: LANTUS SUBQ SCH (21:45)
[2017-03-23] MEDS: NORCO-5 PO PRN (05:27)
[2017-03-23] MEDS: HUMALOG SUBQ SCH ×4 (06:04→21:16)
[2017-03-23] MEDS: SYNTHROID PO SCH (06:05)
[2017-03-23] MEDS: PRILOSEC PO SCH (06:05)
[2017-03-23] MEDS ORDERED: CORTROSYN IV ONE (07:45)
[2017-03-23] MEDS: RENAGEL PO SCH ×3 (08:15→16:54)
[2017-03-23] MEDS: FISH OIL CONCENTRATE PO SCH (08:16)
[2017-03-23] MEDS: SINGULAIR PO SCH (08:16)
[2017-03-23] MEDS: TENORMIN PO SCH ×2 (08:16→10:19)
[2017-03-23] MEDS: NEURONTIN PO SCH (08:16)
[2017-03-23] MEDS: ZYLOPRIM PO SCH (08:16)
[2017-03-23] MEDS: PATIENT'S OWN MED BOTH EYES SCH ×2 (10:16→21:21)
--- NOTE | 2017-03-23 12:30 | PROGRESS NOTE ---
DATE: 03/23/2017 SUBJECTIVE: Patient without specific complaints today. OBJECTIVE: Afebrile, pulse 56, respirations 20, blood pressure 97/57, room air sats 96- 99%.Cardiovascular: RRR. Lungs: CTA. Abdomen: Soft, active bowel sounds. Extremities: 1+ nonpitting edema. Baseline cortisol test 3 p.m. 2 days ago 4.9. After Cortrosyn stem test the cortisol level today was 8.4, which was not deemed normal. Troponin 0.097. Total CK 43. ASSESSMENT: 1. Hypotension, rule out adrenal insufficiency. 2. End stage renal disease on hemodialysis. 3. Possible dysautonomia. 4. Type 2 diabetes mellitus. 5. Hypothyroidism. 6. Fistula in ano. 7. Concern for ischemic heart disease. PLAN: The patient is set up for a stress testing in [address] Rios. Atenolol is being reduced from 50-25 mg daily. He is on his Lantus and Humalog SSI. Continue Synthroid 75 mcg daily. Will discuss trial of steroids such as dexamethasone with Dr. Rivera. For now monitor BP closely. cc: MD Mckay Travis MD
--- NOTE | 2017-03-23 13:24 | PROGRESS NOTE ---
DATE: 03/23/2017 SUBJECTIVE: Mr. Ordonez reports he is feeling a little bit better today. He says his appetite has returned. OBJECTIVE: Vital signs: Afebrile. Heart rate in the 50s. Blood pressure 97/57. His I's and O's are negative around 2.3 L. General: In no acute distress. Cardiovascular: He sounds to be in a regular rate and rhythm with no murmurs, no S3. He has trace lower extremity edema. Chest: Exam is clear bilaterally. No increased work of breathing. Abdomen: Soft, nontender, nondistended, no obvious organomegaly. PERTINENT DATA: His chemistry data from yesterday was reviewed. Notably, he has cardiac enzymes which have trended up from 0.08 to 0.97. His proBNP was 3016. ASSESSMENT: Relative hypotension in an end-stage renal patient. PLAN: Per discussion with Dr. Rios, tentative plan was to proceed with myocardial perfusion imaging on Saturday. Considering his history of normal coronary arteries previously, I would continue to agree with that, and possibly his elevated troponin is secondary to a low flow state with his renal disease as well as hypotension resulting in poor perfusion. I will initiate an 81 mg aspirin as a precaution. cc: MD Mckay Argueta MD
[2017-03-23] MEDS: ASPIRIN PO SCH ×2 (13:50→13:52)
[2017-03-23] MEDS: LANTUS SUBQ SCH (21:18)
[2017-03-23] MEDS: CRESTOR PO SCH (21:21)
[2017-03-24] MEDS: HUMALOG SUBQ SCH ×4 (06:33→21:38)
[2017-03-24] MEDS: PRILOSEC PO SCH (06:34)
[2017-03-24] MEDS: SYNTHROID PO SCH (06:35)
[2017-03-24] MEDS: ASPIRIN PO SCH (09:01)
[2017-03-24] MEDS: FISH OIL CONCENTRATE PO SCH (09:01)
[2017-03-24] MEDS: RENAGEL PO SCH ×3 (09:01→17:51)
[2017-03-24] MEDS: SINGULAIR PO SCH (09:01)
[2017-03-24] MEDS: ZYLOPRIM PO SCH (09:01)
[2017-03-24] MEDS: NEURONTIN PO SCH (09:01)
[2017-03-24] MEDS: PATIENT'S OWN MED BOTH EYES SCH ×2 (09:02→21:37)
[2017-03-24] MEDS: TENORMIN PO SCH (09:02)
[2017-03-24] MEDS: NORCO-5 PO PRN ×2 (11:59→17:50)
--- NOTE | 2017-03-24 13:44 | PROGRESS NOTE ---
DATE: 03/24/2017 SUBJECTIVE: Patient is stable. No syncope or presyncope. OBJECTIVE: Vital signs: Afebrile, pulse 57, respirations 17, blood pressure 102/56, O2 saturation on room air 95 to 100%. Telemetry strip shows no severe dysrhythmia, rare PVC noted. CV: RRR. Lungs: CTA. Abdomen: Nontender. Extremities: No edema. Neurologic: Nonfocal. Cranial nerves intact. ASSESSMENT: 1. Hypotension. Rule out adrenal insufficiency. Rule out cardiac source. 2. End stage renal disease, on hemodialysis. 3. Possible dysautonomia. 4. Type 2 diabetes mellitus. 5. Hypothyroidism. 6. Fistula in ano. PLAN: Dr. Rios is planning stress testing tomorrow. Patient now on atenolol 25 mg daily and aspirin daily. He remains on his Synthroid. If cardiac workup is negative he may be a candidate for a steroid administration as he could suffer from adrenal insufficiency as the Cortrosyn stem test leaned in that direction. cc: MD Mckay Travis MD
[2017-03-24] MEDS: CRESTOR PO SCH (21:37)
[2017-03-24] MEDS: LANTUS SUBQ SCH (21:38)
--- NOTE | 2017-03-25 05:23 | EKG Report ---
Test Performed on : 03/23/2017 06:22:11 AM Test Reason : dyspnea Blood Pressure : / mmHG Vent. Rate : 057 BPM Atrial Rate : 057 BPM P-R Int : 226 ms QRS Dur : 124 ms QT Int : 476 ms P-R-T Axes : 058 -38 026 degrees QTc Int : 463 ms Sinus bradycardia. with 1st degree AV block. Left axis deviation RSR' or QR pattern in V1 suggests right ventricular conduction delay Left ventricular hypertrophy with QRS widening Abnormal ECG When compared with ECG of 21-MAR-2017 14:47, (Unconfirmed) No significant change was found Confirmed by Kandi Gonzalez MD ([id number]) on 03/25/2017 8:50:11 AM
[2017-03-25] MEDS: PRILOSEC PO SCH (06:08)
[2017-03-25] MEDS: SYNTHROID PO SCH (06:08)
[2017-03-25] MEDS: HUMALOG SUBQ SCH ×4 (06:39→21:47)
[2017-03-25] MEDS ORDERED: HEPARIN IV PRN (06:54)
[2017-03-25] MEDS ORDERED: TIGHT: 0.2 ML/HR MISC PRN (06:54)
[2017-03-25 07:36] LABS: ALBUMIN 3.5 g/dL (3.5-5.0); CALCIUM 9.5 mg/dL (8.8-10.2)
[2017-03-25] MEDS ORDERED: HEPARIN ONE (08:56)
[2017-03-25] MEDS ORDERED: NS 2,000 ML ONE (08:56)
[2017-03-25] MEDS: PATIENT'S OWN MED BOTH EYES SCH ×2 (09:05→21:50)
--- NOTE | 2017-03-25 09:25 | PROGRESS NOTE ---
DATE: 03/25/2012 SUBJECTIVE: Mr. Ordonez is lying quietly in bed. He denies chest pain. No increased work of breathing. States that he is actually feeling well except for his bottom. OBJECTIVE: Vital signs: His most recent vital signs, temperature 97.4 degrees , blood pressure 109/58, heart rate 57, respirations 17. He is on 2 L nasal cannula. Last recorded saturation 100%. He has had 0 recorded in, 150 mL out. Labs: Sodium 137, potassium 5, chloride 94, CO2 25, BUN 48, creatinine 10.1, glucose 103, anion gap 18, calcium 9.5, phosphorus 6.8, albumin 3.5. Previous hemoglobin 11.4 on the . The patient has had an a.m. cortisol level of 8.4 yesterday a.m. PHYSICAL EXAMINATION: General: This is a 66-year-old male. He is currently resting quietly in bed. He is in no acute distress. Skin: Warm and dry. HEENT: Normocephalic, atraumatic. Conjunctivae pale. He has BITA. Mucous membranes are moist. Neck : Supple. Trachea midline. No JVD. Cardiovascular: Regular rate and rhythm. Soft murmur. No gallop. Lungs: Clear to auscultation anteriorly. Equal excursion. On O2. Abdomen: Large, round, soft, nontender. Positive bowel sounds. Extremities: Have no edema. No clubbing or cyanosis. Patient has a fistula to the left upper arm. This is with positive thrill, intact, without redness. Neurologic: He is alert and oriented x3. ASSESSMENT AND PLAN: 1. End-stage renal disease. Patient is due for his routine dialysis treatment today. We will place him on a 2 K bath. Pull patient to his dry weight. Again, we will continue to monitor his vital signs while on dialysis. 2. Orthostatic hypotension. Again possibly multifactorial. Has stress test today. If eval is negative, may need Midodrine. rg 3. Electrolytes, acid-base balance, and anemia. These are all within normal limits. Patient has been resumed on his erythropoietin. I would like to thank you for allowing us to follow with this patient. Seen, data reviewed, discussed with Deedee Bauer on 03/25/17. I agree with the above assessment and plan of care. rg Dictated by LALA Medellin for Cresencio Rivera MD cc: LALA Medellin MD Jagan Reddy, MD [facility]
[2017-03-25] MEDS: NS 2,000 ML MISC PRN ×2 (10:47→10:48)
[2017-03-25] MEDS ORDERED: NORCO-5 ONE (11:03)
[2017-03-25] MEDS: NORCO-5 PO PRN ×2 (11:05→17:59)
[2017-03-25] MEDS: RENAGEL PO SCH ×2 (11:13→16:15)
[2017-03-25] MEDS ORDERED: LEXISCAN ONE (14:29)
[2017-03-25] MEDS: FISH OIL CONCENTRATE PO SCH (16:14)
[2017-03-25] MEDS: ASPIRIN PO SCH (16:14)
[2017-03-25] MEDS: NEURONTIN PO SCH (16:15)
[2017-03-25] MEDS: ZYLOPRIM PO SCH (16:15)
[2017-03-25] MEDS: SINGULAIR PO SCH (16:15)
[2017-03-25] MEDS: TENORMIN PO SCH (16:20)
--- NOTE | 2017-03-25 16:50 | Diag Imaging Result Document ---
PROCEDURE NAME: MYOCARDIAL PERF SCAN, STR/REST - 03/25/2017 PROCEDURE: Lexiscan Cardiolite stress test. TECHNIQUE: Baseline electrocardiogram revealed normal sinus rhythm, nonspecific ST-T changes. Lexiscan was infused per standard protocol. There was no chest pain. Stress electrocardiogram was negative for ischemia. Following Lexiscan infusion, Cardiolite was injected. 15.7 mCi of Cardiolite was injected for the rest phase. 45.6 mCi of Cardiolite was injected for the stress phase. Gated SPECT images were obtained in standard views. FINDINGS: 1. Images revealed significant chest wall and diaphragmatic attenuation. There is moderate-size fixed defect noted in the mid and base of the inferior wall. There is no evidence of ischemia. 2. This could represent scar versus attenuation defect. 3. Left ventricular ejection fraction by gated SPECT was 78%. Wall motion was normal. CONCLUSIONS: 1. No chest pain. 2. Negative Lexiscan stress electrocardiogram. 3. Myocardial perfusion images revealed no evidence of ischemia. 4. There is fixed defect mid and base of the inferior wall. This is likely to represent attenuation defect with normal wall motion. Normal left ventricular ejection fraction. There is a low probability of scar, likely attenuation defect. 5. Left ventricular ejection fraction by gated SPECT was 78%. cc: MD Nallely Mann PA
--- NOTE | 2017-03-25 19:30 | PROGRESS NOTE ---
DATE: 03/25/2017 SUBJECTIVE: Interval history was reviewed. Blood pressure is stable. Decreased rate is normal. The patient had a colonoscopy done with fistula in ANO suspicious for Crohn's colitis by Dr. Carrasquillo. I stopped the hydrocortisone. Baseline cortisol is on the low side and incremental response is borderline on ACTH stimulation test. The patient is also scheduled for a stress test for hypotension by Dr. Rios. REVIEW OF SYSTEMS: The patient is in the bathroom. None reported. OBJECTIVE: Vital signs: Afebrile. Blood pressure is 103/57, 267 pounds. HEENT: Within normal limits. Neck: Supple. Chest: Clear to auscultation. Heart: Sounds are regular. Abdomen: Belly is soft, nontender. Good bowel sounds. No masses palpable. Neurologic: No focal deficits. ASSESSMENT AND PLAN: 1. Hypotension. Borderline secondary adrenal insufficiency. Discontinue hydrocortisone. 2. [id number] with possible Crohn's under the care of Dr. Funk. Discussed with him. We will consult him in the morning. 3. End-stage kidney disease. On dialysis. 4. Dysautonomia workup is in progress by Dr. Rios. So far, LV systolic function is negative. Waiting for a stress test. 5. Hyperlipidemia on Crestor. 6. Type 2 diabetes on Lantus. 7. We will follow up on the orthostatic blood pressure. LEVEL OF DOCUMENTATION: 25 minutes. I If he passes the stress test, consider surgical consult for [id number]. cc: Mckay Wang MD
[2017-03-25] MEDS: CRESTOR PO SCH (21:46)
[2017-03-25] MEDS: LANTUS SUBQ SCH (21:47)
[2017-03-26] MEDS: HUMALOG SUBQ SCH ×4 (06:10→22:29)
[2017-03-26] MEDS: SYNTHROID PO SCH (06:27)
[2017-03-26] MEDS: PRILOSEC PO SCH (06:27)
[2017-03-26] MEDS: TENORMIN PO SCH (08:02)
[2017-03-26] MEDS: NEURONTIN PO SCH (08:52)
[2017-03-26] MEDS: FISH OIL CONCENTRATE PO SCH (08:52)
[2017-03-26] MEDS: ZYLOPRIM PO SCH (08:52)
[2017-03-26] MEDS: RENAGEL PO SCH ×3 (08:52→17:01)
[2017-03-26] MEDS: SINGULAIR PO SCH (08:53)
[2017-03-26] MEDS: ASPIRIN PO SCH (08:53)
[2017-03-26] MEDS: PATIENT'S OWN MED BOTH EYES SCH ×2 (08:53→20:49)
--- NOTE | 2017-03-26 10:51 | Diag Imaging Result Doc PS360 ---
EXAM: FLUROSCOPY ONLY IN DEPT. - 03/26/2017 HISTORY: rule out stricture TECHNIQUE: Retrograde urethrogram COMPARISON: None. FINDINGS: Water-soluble contrast was hand injected retrogradely into the urethra. The contrast column stops at the posterior urethra, where the urethral margin appears tapered. There is no passage of contrast through the posterior urethra. The patient experienced discomfort from injection. This suggests the likelihood of stricture of the posterior urethra. There is possibly mild smooth narrowing at the mid penile urethra. There was no contrast extravasation from the opacified urethra identified. IMPRESSION: No retrograde passage of contrast through the posterior urethra, suggesting the likelihood of stricture of the posterior urethra. Possible mild smooth narrowing at the mid penile urethra. No evidence of contrast extravasation from the opacified urethra. Electronically signed by Buster Arreola 03/26/2017 10:48 AM
--- NOTE | 2017-03-26 15:06 | PROGRESS NOTE ---
DATE: 03/26/2017 TIME SEEN: 08:20. SUBJECTIVE: Mr. Ordonez is resting quietly in bed. He is lying mostly supine with a small pillow behind his head. He denies chest pain or increased work of breathing. OBJECTIVE: His most recent vital signs: Temperature 98.3 degrees, blood pressure 109/53, heart rate 62, respirations 12. He is on room air, last recorded saturation 99%. He has zero recorded in, 2.5 L off on dialysis yesterday. LABS: Sodium 137, potassium 5, chloride 94, CO2 25, BUN 48, creatinine 10.1, glucose 103. Anion gap is 18 with a calcium of 9.5, phosphorus 6.8, and albumin 3.5. Previous hemoglobin 11.4 on the , with labs to be drawn in the a.m. prior to dialysis. PHYSICAL EXAMINATION: General: This is a 66-year-old male. He is currently resting in bed. He is in no acute distress. Skin: Warm and dry. HEENT: Normocephalic, atraumatic. Conjunctiva is pink. He has BITA. Mucous membranes moist. Neck: Supple. Trachea midline. No JVD. Cardiovascular: Regular rate and rhythm. He has a soft murmur. No gallop appreciated. Lungs: Clear to auscultation anteriorly. Equal excursion. Abdomen: Large, round, soft, nontender. Positive bowel sounds. Genitourinary: Not inspected. Minimal void with dialysis assist. Extremities: Have no edema. No clubbing or cyanosis. Palpable fistula to the left upper arm with good thrill. Neurological: Alert and oriented x3. ASSESSMENT AND PLAN: 1. End-stage renal disease. Patient is due for his routine dialysis treatment in the a.m. No indications for intervention today. 2. Orthostatic hypotension. This has improved over the last 24-48 hours. Patient was evaluated with a myocardial stress test indicating negative Lexiscan scan stress with an ejection fraction of 78%. I would like to thank you for allowing us to follow with this patient. Seen, data reviewed, discussed with Deedee Bauer on 03/26/17. I agree with the above assessment and plan of care. rg Dictated by LALA Medellin for Cresencio Rivera MD cc: Mikaela LALA Gonzales MD Jagan Reddy, MD MTDD
--- NOTE | 2017-03-26 19:22 | PROGRESS NOTE ---
DATE: 03/26/2017 SUBJECTIVE: The patient is doing very well. Discussed with the patient about the cardiac workup. REVIEW OF SYSTEMS: None reported. Pain is improving, and his hemodynamics were pretty much stable. He is not orthostatic and I's and O's are even. PHYSICAL EXAMINATION: HEENT: Exam within normal limits. Neck: Supple. No lymphadenopathy. Chest: Clear. Heart: Sounds are regular. Abdomen: Belly is soft, nontender. Good bowel sounds. Neurologic: No obvious neurological deficits. ASSESSMENT AND PLAN: 1. Hypotension, borderline secondary to adrenal insufficiency. Discontinue hydrocortisone. Stable now. 2. Dysautonomia. Cardiac workup was negative. Myocardial perfusion scan is negative. 3. Type 2 diabetes. Stable on present medical regimen with the Lantus and sliding scale with insulin coverage. 4. Fistula in ano, possible Crohn disease. Since he is medically stable, consult with Dr. Funk. 5. End-stage kidney disease on dialysis will go for tomorrow. LEVEL OF DOCUMENTATION: 25 minutes. cc: Mckay Wang MD MTDD
[2017-03-26] MEDS: CRESTOR PO SCH (20:46)
--- NOTE | 2017-03-26 20:52 | CONSULTATION ---
DATE OF CONSULTATION: 03/26/2017 REFERRING PHYSICIAN: Dr. Funk. ATTENDING PHYSICIAN: Dr. Wang. HISTORY OF PRESENT ILLNESS: This 66-year-old male has end-stage renal disease on dialysis. He has large hemorrhoids and during evaluation it was felt he had a vesicle or urethral cutaneous fistula. The patient states he is not aware of any leakage around the perineal area. He states he thought he sweated a lot in that area. He states he has had infections there. He states he does not think he makes any urine. PAST MEDICAL HISTORY: Hypertension, diabetes, hypothyroidism, end-stage renal disease, gastroesophageal reflux disease, glaucoma, gout, obesity. CURRENT MEDICATIONS: Are documented on the chart. PAST SURGICAL HISTORY: Left antecubital fossa AV fistula, cervical spine surgery, IPP placement and subsequent removal due to erosion from infection, treatment of perineal abscess. SOCIAL HISTORY: There is no tobacco or alcohol use. He has dialysis 3 days a week Saturday, Saturday, Saturday. ALLERGIES: He has no known drug allergies. REVIEW OF SYSTEMS: He states usually he feels pretty well. He states the hemorrhoids are causing a lot of problems and he would like to get those treated. He denies any problems with strokes or seizures. PHYSICAL EXAMINATION: General: An obese, age apparent, normally developed black male, oriented in all ways and cooperative. HEENT: Normal for age. Lungs: Clear. Cardiovascular: Regular rate and rhythm. Abdomen: Obese, soft. No hepatosplenomegaly or masses. Normal bowel sounds. : Uncircumcised male. Foreskin retracts. No lesions or discharges. Both testes are down. Mild bilateral hydroceles. The perineum was inspected and no opening was visualized consistent with a urethrocutaneous fistula. Rectal: Large hemorrhoids. Attempted to do rectal exam but the patient states it caused too much pain. Extremities: No clubbing, cyanosis, or edema. Neuro: No focal deficits. LABORATORY EVALUATION: Has a white count of 6.65, hemoglobin 11.4, hematocrit 37.4 and platelets are 116,000. Serum electrolytes are normal. BUN 48, creatinine 10.1, consistent with his renal failure. Retrograde urethrogram reveals complete obstruction at the proximal bulbar urethra. There was no contrast going up through the prostatic urethra and into the bladder. IMPRESSION: 1. End-stage renal disease. 2. Proximal bulbar stricture. 3. Question of prostatic urethral or vesicle cutaneous fistula. RECOMMEND: Check postvoid residual scan. A cystoscopic exam if he has a large residual. Thank you for this consultation. cc: MD Mckay Hernandez MD
[2017-03-26] MEDS: LANTUS SUBQ SCH (22:29)
[2017-03-27] MEDS: SYNTHROID PO SCH (06:19)
[2017-03-27] MEDS: PRILOSEC PO SCH (06:19)
[2017-03-27] MEDS: HUMALOG SUBQ SCH ×4 (06:27→20:54)
[2017-03-27 06:46] LABS: ALBUMIN 3.9 g/dL (3.5-5.0); CALCIUM 9.9 mg/dL (8.8-10.2); POTASSIUM 5.1 mmol/L (3.5-5.1)
[2017-03-27] MEDS ORDERED: NS 2,000 ML ONE (07:08)
[2017-03-27] MEDS ORDERED: HEPARIN ONE (07:08)
[2017-03-27] MEDS ORDERED: NS 2,000 ML MISC PRN (07:10)
--- NOTE | 2017-03-27 08:44 | PROGRESS NOTE ---
DATE: 03/27/2017 TIME SEEN: 0750 SUBJECTIVE: Mr. Ordonez is resting quietly in bed. He denies chest pain or increased work of breathing. States that his bottom does hurt when he sits on it so he tries to stay on his side in a semisupine position. OBJECTIVE: Vital Signs: His most recent vital signs are temperature 98.1 degrees, blood pressure 110/56, heart rate 56, respirations 16. He remains on room air. Last recorded saturation 98%. He has had 360 in. He has had 0 recorded out with assistance with dialysis. Laboratory Data: Sodium 139, potassium 5.1, chloride is 92, CO2 25, BUN 50, creatinine 9.6, glucose 167, anion gap 22, calcium 9.9, phosphorus 6, albumin 3.9. Previous hemoglobin was 11.4 on the . Physical Examination: General: This is a 66-year-old, male. He is currently resting in bed. He is in no acute distress. Skin: Warm and dry. HEENT: Normocephalic, atraumatic. Conjunctivae pale. He has BITA. Mucous membranes moist. Neck: Supple. Trachea midline. No JVD. Cardiovascular: Regular rate and rhythm. He has a soft murmur noted. No gallop appreciated. Lungs: Clear to auscultation anteriorly. Equal excursion on room air. Abdomen: Large, obese, soft, nontender. Positive bowel sounds. Genitourinary : Not inspected. Minimal void with dialysis assist. Patient has had a bladder scan this morning with no urine indicated. Extremities: No edema. No clubbing or cyanosis. Palpable fistula in the left upper arm with a good thrill. Neurological: Alert and oriented x3. ASSESSMENT AND PLAN: 1. End-stage renal disease. Patient is due for his routine dialysis treatment today. We will place him on a 2 K bath. He is to dialyze for 3.5 hours. We will attempt to pull patient to his dry weight. We will hold heparin in case patient is requiring any further surgical intervention for his hemorrhoids and care of his rectum. 2. Electrolytes, acid-base balance, and anemia. These all remain stable. I would like to thank you for allowing us to follow with this patient. Seen, data reviewed, discussed with Deedee Bauer on 03/27/17. I agree with the above assessment and plan of care. rg Dictated by LALA Medellin for Cresencio Rivera MD cc: LALA Medellin MD Jagan Reddy, MD [facility]
[2017-03-27] MEDS: RENAGEL PO SCH ×3 (09:12→16:19)
[2017-03-27] MEDS: TENORMIN PO SCH (09:13)
[2017-03-27] MEDS ORDERED: NORCO-5 ONE (10:24)
[2017-03-27] MEDS: NORCO-5 PO PRN ×2 (10:27→20:46)
[2017-03-27] MEDS: ZYLOPRIM PO SCH (12:30)
[2017-03-27] MEDS: FISH OIL CONCENTRATE PO SCH (12:30)
[2017-03-27] MEDS: NEURONTIN PO SCH (12:30)
[2017-03-27] MEDS: ASPIRIN PO SCH ×2 (12:30→12:33)
[2017-03-27] MEDS: SINGULAIR PO SCH (12:30)
[2017-03-27] MEDS: PATIENT'S OWN MED BOTH EYES SCH ×2 (12:31→20:50)
--- NOTE | 2017-03-27 19:55 | PROGRESS NOTE ---
DATE: 03/27/2017 SUBJECTIVE: Patient was seen in the Dialysis Clinic. Was seen by Dr. Funk and Dr. Brito. Patient was evaluated for rule out urethral vesical fistula. Patient has urethrogram done. No evidence of extravasation noted. Blood pressure is getting stable. PHYSICAL EXAMINATION: Vital Signs: Afebrile. I's and O's -2 L. HEENT: Within normal limits. Neck: Supple. Chest: Clear. Heart: Sounds are regular. Abdomen: Belly is soft, nontender. Good bowel sounds. Extremities: No peripheral edema, cyanosis. Neurologic: No obvious neurological deficits. INVESTIGATIONS: Sodium 139, potassium 5, chloride 93, BUN 50, creatinine 9.6, glucose 167. ASSESSMENT AND PLAN: 1. End-stage kidney disease on dialysis. 2. Hypotension borderline secondary to adrenal insufficiency due to steroids, now currently stable on low dose of atenolol. 3. Dysautonomia. Cardiac workup was negative. 4. Fistula in Ano. No evidence of urethrovesical fistula and Dr. Funk is going to do surgery tomorrow. Plan of care discussed with the patient and will follow up. LEVEL OF DOCUMENTATION: 25 minutes. cc: Mckay Wang MD
[2017-03-27] MEDS: CRESTOR PO SCH (20:46)
[2017-03-27] MEDS: LANTUS SUBQ SCH (20:48)
[2017-03-28] MEDS: HUMALOG SUBQ SCH ×4 (06:02→21:23)
[2017-03-28] MEDS: PRILOSEC PO SCH (06:03)
[2017-03-28] MEDS: SYNTHROID PO SCH (06:03)
[2017-03-28] MEDS ORDERED: KEFZOL 1 GM/D5W 1 GM/50 ML IVPB ONE (09:08)
[2017-03-28] MEDS ORDERED: NEOSPORIN G.U. IRRIGANT ONE (09:35)
[2017-03-28] MEDS: RENAGEL PO SCH ×3 (10:18→16:58)
[2017-03-28] MEDS: DILAUDID ONE ×2 (10:42→10:47)
[2017-03-28] MEDS: TENORMIN PO SCH (11:16)
[2017-03-28] MEDS: ASPIRIN PO SCH (11:21)
[2017-03-28] MEDS: ZYLOPRIM PO SCH (11:22)
[2017-03-28] MEDS: SINGULAIR PO SCH (11:22)
[2017-03-28] MEDS: FISH OIL CONCENTRATE PO SCH (11:22)
[2017-03-28] MEDS: NEURONTIN PO SCH (11:22)
[2017-03-28] MEDS: PATIENT'S OWN MED BOTH EYES SCH ×2 (11:24→21:24)
--- NOTE | 2017-03-28 14:25 | Diag Imaging Result Doc PS360 ---
EXAM: RETROGRADES 2 OR 3 FILMS HISTORY: BI-LATERAL RETROGRADES TECHNIQUE: 17 films submitted from a procedure performed Dr. Brito COMPARISON: None. FINDINGS: Early film shows retrograde filling of the right ureter. No obstruction to retrograde flow. No filling defect or stricture. Later films show retrograde filling of the left ureter. No obstruction to retrograde flow. No filling defect or stricture. Each renal pelvis distends normally. Normal drainage on the later films. IMPRESSION: Normal bilateral retrograde exam. Electronically signed by Wm Rivera 03/28/2017 2:23 PM
[2017-03-28] MEDS: NORCO-5 PO PRN ×2 (14:30→22:47)
--- NOTE | 2017-03-28 16:23 | OPERATIVE NOTE ---
PROCEDURE DATE: 03/28/2017 SURGEON: Gigi Brito MD PREOPERATIVE DIAGNOSES: 1. 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 2. 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 POSTOPERATIVE DIAGNOSES: Proximal bulbar and membranous urethral stricture. No prostatic urethral cutaneous fistula noted. FINDINGS: Cystoscopic exam: Urethra with a complete stricture of the proximal bulb that was very thin. After dilation with the cystoscope, the channel was wide open. However, there was still tissue in the membranous urethra. Prostate status post TURP with mild regrowth. Bladder very contracted. Large diverticulum at the dome. No papillary lesions. Grade 3 trabeculations. No evidence of infection. Left retrograde ureteral pyelogram collecting system very small consistent with end-stage renal disease. No filling defects. Right retrograde ureteral pyelogram, the collecting system very small consistent with end-stage renal disease. Rectal exam reveals large hemorrhoids with a prostate of about 40-50 g, firm, but smooth and symmetric. INDICATION FOR PROCEDURE: This 66-year-old male with end-stage renal disease has a history of perineal infections and large hemorrhoids. He states he does not void at all. A scan of his bladder revealed over 100 mL of liquid in the bladder. A retrograde urethrogram revealed complete obstruction at the proximal bulbar urethra. DESCRIPTION OF PROCEDURE: After informed consent was obtained from the patient, him receiving IV antibiotics, he was taken to the main OR cystoscopy room, placed in a supine position. General anesthesia via laryngeal mask was achieved. He was then placed in a low lithotomy position and prepped and draped in the usual sterile fashion for cystoscopic exam. A 21-Yoruba rigid cystoscope was passed through the patient's urethra. When the very thin stricture was visualized, some pressure was placed with the scope and it went right through into the prostatic urethra that again had a membranous stricture that was easily scoped, and the scope was advanced into the bladder. Findings are as noted above. The fluid that came from the bladder did not appear infected. A 0.035 zip wire was passed through the cystoscope, the cystoscope was removed and a 20- Yoruba [place] tip silicone Baires catheter was passed over the wire and into the bladder. 10 mL sterile water was placed in the balloon. The wire was removed, the catheter irrigated without difficulty. It was placed to gravity drain. We will keep this catheter for about 1 week. He tolerated the procedure well. Estimated blood loss less than 1 mL. He was taken to recovery room in good condition. cc: MD Mckay Hernandez MD
--- NOTE | 2017-03-28 16:44 | PROGRESS NOTE ---
DATE: 03/28/2017 SUBJECTIVE: Mr. Ordonez underwent a cystoscopy by Dr. Brito today. He had urethral strictures that were treated. Otherwise, he has no new complaints today. Sitting up. No shortness of breath. No nausea or vomiting. OBJECTIVE: Vital Signs: Blood pressure 125/65, heart rate 69, respirations 12, afebrile. Generally: He is in no acute distress. Skin: Warm and dry. HEENT: Conjunctivae are pink. Neck: Neck veins are not visible. Oropharynx is moist. Heart: Regular with a gallop and a murmur. Lungs: Have equal breath sounds. No crackles. Abdomen: Soft, nontender. Bowel sounds are present. Extremities: Have 1+ edema. No clubbing or cyanosis. LABORATORY DATA: None today. IMPRESSION: 1. End-stage kidney disease. He will have his routine hemodialysis tomorrow. 2. Hypertension. Blood pressure is running low but improved overall. He has had no overt hypotension since the . If it recurs we may need to add midodrine. 3. Volume status acceptable. cc: MD Mckay Pimentel MD
[2017-03-28] MEDS: LANTUS SUBQ SCH (21:21)
[2017-03-28] MEDS: CRESTOR PO SCH (21:21)
--- NOTE | 2017-03-28 22:00 | PROGRESS NOTE ---
DATE: 03/28/2017 SUBJECTIVE: The patient was seen by Dr. Tejada and Dr. Brito. I discussed with Dr. Brito about the plan of care. He believes the patient has urethral stricture and retention of urine even though he is on dialysis. He was not urinating a lot. He has 100 mL of urine in the bladder. Dr. Brito is going to dilate the stricture and after the procedure, Dr. Tejada will evaluate. Patient had dialysis yesterday. OBJECTIVE: Vital signs: Afebrile and hemodynamics were stable. HEENT: Within normal limits. Chest: Clear. Heart: Sounds are regular. Abdomen: Belly is soft, nontender. Good bowel sounds. ASSESSMENT AND PLAN: 1. Proximal bulbar stricture. Going for dilatation of the stricture. 2. End-stage kidney disease on dialysis tomorrow. 3. Hypotension is improving. 4. Tenia cruris secondary to bacterial infection, improving. 5. Hemorrhoids and fistula in ANO, as per Dr. Funk. Apparently Dr. Tejada wants to do as an outpatient. Hopefully, he will be discharged tomorrow after dialysis and follow up as an outpatient. LEVEL OF DOCUMENTATION: 15 minutes. cc: Mckay Wang MD
[2017-03-29] MEDS: PRILOSEC PO SCH (06:31)
[2017-03-29] MEDS: SYNTHROID PO SCH (06:31)
[2017-03-29] MEDS: NORCO-5 PO PRN ×4 (06:34→23:07)
[2017-03-29] MEDS ORDERED: NS 2,000 ML MISC PRN (06:55)
[2017-03-29] MEDS ORDERED: TIGHT: 0.2 ML/HR MISC PRN (06:55)
[2017-03-29] MEDS ORDERED: HEPARIN IV PRN (06:55)
[2017-03-29 07:31] LABS: ALBUMIN 4.3 g/dL (3.5-5.0); CALCIUM 10.4 mg/dL (8.8-10.2); POTASSIUM 5.8 mmol/L (3.5-5.1)
[2017-03-29] MEDS ORDERED: PERI MEDS (DERMOPLAST/NUPERCAINAL/TUCKS) MISC PRN (09:16)
--- NOTE | 2017-03-29 10:43 | PROGRESS NOTE ---
DATE: 03/29/2017 SUBJECTIVE: He is grimacing in pain because of his hemorrhoids. He also finds the Baires catheter uncomfortable. OBJECTIVE: Vital Signs: Blood pressure 125/61, heart rate 68, respirations 20, afebrile. General: No acute distress though he is in pain. Skin: Warm and dry. Conjunctivae are pink. Oropharynx is moist. Neck: Neck veins are not visible. Heart: Regular. Systolic murmur. Lungs: Have equal breath sounds. No crackles. Abdomen: Soft, obese, nontender. Bowel sounds present. Extremities: Have minimal edema. No clubbing or cyanosis. LABORATORY DATA: Sodium 136, potassium 5.8, chloride 89, bicarbonate 25, BUN 50, creatinine 9.2, hemoglobin 11.4. IMPRESSION: 1. End-stage kidney disease. He will have his routine hemodialysis. He will require 4 L ultrafiltration today. 2. Electrolytes: Moderate hyperkalemia and hypercalcemia. These will be addressed with dialysis. 3. Acid base, in target. 4. Anemia in target. 5. Okay for discharge from my perspective. cc: MD Mckay Pimentel MD
[2017-03-29] MEDS: NEURONTIN PO SCH (11:47)
[2017-03-29] MEDS: RENAGEL PO SCH ×3 (11:47→17:05)
[2017-03-29] MEDS: TENORMIN PO SCH (11:47)
[2017-03-29] MEDS: FISH OIL CONCENTRATE PO SCH (11:47)
[2017-03-29] MEDS: SINGULAIR PO SCH (11:47)
[2017-03-29] MEDS: ZYLOPRIM PO SCH (11:47)
[2017-03-29] MEDS: PATIENT'S OWN MED BOTH EYES SCH ×2 (11:48→23:12)
--- NOTE | 2017-03-29 11:48 | PROGRESS NOTE ---
DATE: 03/29/2017 Patient was seen in dialysis. INTERVAL HISTORY: Patient has dilatated bulbar stricture. Has a Baires catheter with a lot of blood around the penis area. Complains of severe rectal pain, not able to lie down on the dialysis machine. OTHER REVIEW OF SYSTEMS: Normal other than pain. On exam afebrile, hemodynamics were stable.HEENT: Within normal limits. Chest : Clear. Heart: Sounds are regular. Abdomen: Belly is soft, nontender. Good bowel sounds. INVESTIGATIONS: Sodium 136, potassium 4.8. BUN 50. Creatinine 9.2, glucose 216. ASSESSMENT AND PLAN: 1. Rectal pain, hemorrhoids and fistula en ano. No vesico rectal fistula noted. 2. Status post dilated bulbar stricture dilation. 3. End-stage kidney disease on dialysis. Dr. Funk informed he is going to do hemorrhoidectomy on Saturday. The patient is in a lot of pain. We will do the benzocaine dibucaine cream topically without hydrocortisone. 4. Diabetes is well controlled. We will hold off discharge today since he is in lot of pain. Will follow up. Level of documentation 25 minutes. cc: Mckay Wang MD MTDD
[2017-03-29] MEDS: ASPIRIN PO SCH (11:49)
[2017-03-29] MEDS: HUMALOG SUBQ SCH ×4 (12:47→23:11)
[2017-03-29] MEDS: MIRALAX PO SCH (18:47)
[2017-03-29] MEDS: CRESTOR PO SCH (23:07)
[2017-03-29] MEDS: LANTUS SUBQ SCH (23:08)
[2017-03-30] MEDS: HUMALOG SUBQ SCH ×4 (06:30→23:47)
[2017-03-30] MEDS: PRILOSEC PO SCH (06:30)
[2017-03-30] MEDS: SYNTHROID PO SCH (06:30)
[2017-03-30] MEDS: RENAGEL PO SCH ×3 (08:58→18:20)
[2017-03-30] MEDS: SINGULAIR PO SCH (08:58)
[2017-03-30] MEDS: FISH OIL CONCENTRATE PO SCH (08:58)
[2017-03-30] MEDS: NEURONTIN PO SCH (08:58)
[2017-03-30] MEDS: ZYLOPRIM PO SCH (08:58)
[2017-03-30] MEDS: MIRALAX PO SCH (08:58)
[2017-03-30] MEDS: TENORMIN PO SCH (08:58)
[2017-03-30] MEDS: ASPIRIN PO SCH (08:59)
[2017-03-30] MEDS: PATIENT'S OWN MED BOTH EYES SCH ×2 (08:59→20:28)
--- NOTE | 2017-03-30 13:41 | PROGRESS NOTE ---
DATE: 03/30/2017 Mr. Ordonez has a fistula and anal hemorrhoids. He is going to have surgery with Dr. Funk next Saturday. He has end-stage renal disease. He had a Baires catheter placed in by Dr. Brito and Dr. Brito wants to keep the Baires catheter in. He gets dialysis. His creatinine was 9.2 yesterday and BUN was 50. Potassium was 5.8. He had dialysis yesterday. Overall condition is unchanged. We will continue with the current management. -2 cc: MD Mckay Fernandez MD
[2017-03-30] MEDS ORDERED: INSULIN PEN NEEDLES ONE (17:12)
[2017-03-30] MEDS: CRESTOR PO SCH (20:27)
[2017-03-30] MEDS: LANTUS SUBQ SCH (23:49)
[2017-03-31] MEDS: SYNTHROID PO SCH (06:40)
[2017-03-31] MEDS: PRILOSEC PO SCH (06:40)
[2017-03-31] MEDS: NORCO-5 PO PRN ×3 (06:40→23:56)
[2017-03-31] MEDS: HUMALOG SUBQ SCH ×4 (06:44→20:30)
[2017-03-31] MEDS ORDERED: CITRATE OF MAGNESIA PO ONE (07:50)
[2017-03-31] MEDS: ZYLOPRIM PO SCH (08:26)
[2017-03-31] MEDS: RENAGEL PO SCH ×3 (08:26→17:39)
[2017-03-31] MEDS: TENORMIN PO SCH (08:27)
[2017-03-31] MEDS: MIRALAX PO SCH (08:27)
[2017-03-31] MEDS: NEURONTIN PO SCH (08:27)
[2017-03-31] MEDS: ASPIRIN PO SCH (08:27)
[2017-03-31] MEDS: FISH OIL CONCENTRATE PO SCH (08:27)
[2017-03-31] MEDS: SINGULAIR PO SCH (08:27)
[2017-03-31] MEDS: PATIENT'S OWN MED BOTH EYES SCH ×2 (08:45→21:24)
[2017-03-31] MEDS: TUCKS PADS TOP PRN ×2 (10:10→20:00)
[2017-03-31] MEDS ORDERED: DULCOLAX PR PRN (10:52)
[2017-03-31] MEDS: NUPERCAINAL TOP PRN (13:14)
[2017-03-31] MEDS: DERMOPLAST SPRAY TOP PRN ×3 (13:16→22:00)
--- NOTE | 2017-03-31 16:37 | PROGRESS NOTE ---
DATE: 03/31/2017 Mr. Ordonez has severe constipation. We tried to give some magnesium citrate upon his request early this morning, and he did not have any results. He is in misery. He has fistula as well as hemorrhoids. He is willing to put in a Dulcolax suppository himself now, so we will let him put one. Otherwise, his general condition is unchanged. He has a Baires catheter. He is going to have the surgery in the coming week. cc: MD Mckay Fernandez MD
[2017-03-31] MEDS: CRESTOR PO SCH (20:30)
[2017-03-31] MEDS: LANTUS SUBQ SCH (20:31)
[2017-03-31] MEDS ORDERED: B & O 15A SUPP PR PRN (21:22)
[2017-04-01] MEDS: SYNTHROID PO SCH (06:07)
[2017-04-01] MEDS: NORCO-5 PO PRN (06:07)
[2017-04-01] MEDS: PRILOSEC PO SCH (06:07)
[2017-04-01] MEDS: HUMALOG SUBQ SCH ×4 (06:08→21:23)
[2017-04-01] MEDS ORDERED: HEPARIN ONE (06:56)
[2017-04-01] MEDS ORDERED: NS 2,000 ML ONE (06:56)
[2017-04-01 07:31] LABS: MANUAL DIFF NEEDED? NO
[2017-04-01] MEDS ORDERED: HEPARIN IV PRN (07:38)
[2017-04-01] MEDS ORDERED: TIGHT: 0.2 ML/HR MISC PRN (07:38)
[2017-04-01] MEDS ORDERED: NS 2,000 ML MISC PRN (07:38)
[2017-04-01] MEDS: RENAGEL PO SCH ×3 (08:06→17:51)
[2017-04-01] MEDS: NUPERCAINAL TOP PRN ×2 (08:07)
[2017-04-01] MEDS: TUCKS PADS TOP PRN (08:07)
[2017-04-01 08:21] LABS: BASO% 0.2 % (0.0-0.8); EOS# 0.46 X1000 (0.0-0.7); EOS% 3.8 % (0.0-10.0); HEMATOCRIT 41.5 % (42.0-52.0); HEMOGLOBIN 12.7 g/dL (14.0-18.0); LYMPH# 6.22 X1000 (1.2-3.4); LYMPH% 51.4 % (20.5-51.1); MCHC 30.6 g/dL (33-37); MCV 91.4 FL (81-99); MONO# 0.94 X1000 (0.11-0.59); MONO% 7.8 % (1.7-9.3); MPV 12.3 FL (7.4-10.4); NEUT% 36.8 % (42.2-75.2); PLT 150 X1000 (130-400); RBC 4.54 XMIL (4.7-6.1)
[2017-04-01 08:43] LABS: CALCIUM 10.6 mg/dL (8.8-10.2); POTASSIUM 6.9 mmol/L (3.5-5.1)
--- NOTE | 2017-04-01 09:43 | PROGRESS NOTE ---
DATE: 04/01/2017 SUBJECTIVE: Patient is sitting up on the side of the bed. He has continued to have significant pain because of his hemorrhoids. OBJECTIVE: Vital signs: Temp 97.8 degrees, pulse 63, respiratory rate 20, blood pressure 139/64. Intake not measured. Output 400 mL. General: This is a middle-aged gentleman sitting up on the side of the bed. He is awake and alert. He is in no acute distress. HEENT: Normocephalic, atraumatic. Oral mucosa moist. Neck: Supple. No JVD. Cardiovascular: Regular rate and rhythm. Systolic murmur. No gallop noted. Pulmonary: Equal excursion. He is clear bilaterally. Abdomen: Soft. Positive bowel sounds. : Not inspected. He has a Baires catheter with bloody urine. Extremities: Trace pretibial edema. No clubbing, cyanosis. Is moving extremities. Ambulatory the bedside commode. Integumentary: Skin is warm and dry otherwise. Fistula noted. LAB DATA: WBC of 12.1. Sodium 131, potassium 6.9, creatinine 11.2, calcium 10.6. ASSESSMENT AND PLAN: 1. End-stage renal disease. Today is his routine dialysis day. We will dialyze him on a 2 K bath/UF to dry weight/four hour treatment. 2. Electrolytes, acid-base balance. We will address on his dialysis. 3. Anemia. Acceptable. 4. Plan for hemorrhoidectomy. I understand this is likely to happen tomorrow. Seen, data reviewed, discussed with Myriam Brown on 04/01/17. I agree with the above assessment and plan of care. rg Dictated by LALA Montero for Cresencio Rivera MD cc: MD Mckay Pimentel MD [facility]
[2017-04-01] MEDS: NEURONTIN PO SCH (13:50)
[2017-04-01] MEDS: ASPIRIN PO SCH (13:50)
[2017-04-01] MEDS: SINGULAIR PO SCH (13:51)
[2017-04-01] MEDS: FISH OIL CONCENTRATE PO SCH (13:51)
[2017-04-01] MEDS: ZYLOPRIM PO SCH (13:51)
[2017-04-01] MEDS: PATIENT'S OWN MED BOTH EYES SCH (13:52)
[2017-04-01] MEDS: MIRALAX PO SCH (13:52)
[2017-04-01] MEDS: TENORMIN PO SCH (13:53)
--- NOTE | 2017-04-01 19:22 | PROGRESS NOTE ---
DATE: 04/01/2017 SUBJECTIVE: The patient is in excruciating pain around the rear end and he is on dialysis. His potassium is high. REVIEW OF SYSTEMS: Other than rectal pain, he is doing very well. His hemodynamics were stable. OBJECTIVE: Vital signs: Temperature is 98 degrees, 99% on room air. Input and output: Negative -3700. HEENT: Within normal limits. Chest: Clear. Heart: Sounds are regular. Abdomen: Belly is soft, nontender. Good bowel sounds. Baires catheter was placed. ASSESSMENT AND PLAN: 1. End-stage kidney disease on dialysis. 2. Hyperkalemia, follow up on dialysis. 3. Perirectal pain. Dibucaine cream is not helping. Discussed with Dr. Funk. He is going to explore hemorrhoidectomy and also fistula in ANO. 4. Proximal bulbar stricture status post dilatation, on Baires by Dr. Brito. LEVEL OF DOCUMENTATION: 25 minutes. cc: Mckay Wang MD
[2017-04-01] MEDS: LANTUS SUBQ SCH (20:13)
[2017-04-01] MEDS: CRESTOR PO SCH (20:13)
[2017-04-02] MEDS: PATIENT'S OWN MED BOTH EYES SCH ×2 (00:24→09:51)
[2017-04-02] MEDS: HUMALOG SUBQ SCH ×3 (06:08→16:26)
[2017-04-02] MEDS: PRILOSEC PO SCH (06:08)
[2017-04-02] MEDS: SYNTHROID PO SCH (06:09)
[2017-04-02 06:51] LABS: MANUAL DIFF NEEDED? NO
[2017-04-02 07:05] LABS: INR 1.04; PROTIME 10.9 Seconds (9.2-11.7); PTT 20.8 Seconds (22.0-36.0)
[2017-04-02 07:19] LABS: BASO% 0.2 % (0.0-0.8); EOS% 4.2 % (0.0-10.0); HEMATOCRIT 38.8 % (42.0-52.0); HEMOGLOBIN 11.7 g/dL (14.0-18.0); LYMPH# 5.03 X1000 (1.2-3.4); MCH 28.3 PG (27-31); MCHC 30.2 g/dL (33-37); MCV 93.7 FL (81-99); MONO# 0.83 X1000 (0.11-0.59); MONO% 8.7 % (1.7-9.3); MPV 12.1 FL (7.4-10.4); NEUT% 33.9 % (42.2-75.2); PLT 128 X1000 (130-400); RBC 4.14 XMIL (4.7-6.1)
[2017-04-02] MEDS ORDERED: NS 2,000 ML MISC PRN (08:00)
[2017-04-02] MEDS ORDERED: HEPARIN IV PRN (08:00)
[2017-04-02] MEDS ORDERED: TIGHT: 0.2 ML/HR MISC PRN (08:00)
[2017-04-02] MEDS: RENAGEL PO SCH ×3 (08:53→16:58)
[2017-04-02] MEDS: ASPIRIN PO SCH (09:49)
[2017-04-02] MEDS: NEURONTIN PO SCH (09:51)
[2017-04-02] MEDS: FISH OIL CONCENTRATE PO SCH (09:51)
[2017-04-02] MEDS: MIRALAX PO SCH (09:51)
[2017-04-02] MEDS: SINGULAIR PO SCH (09:52)
[2017-04-02] MEDS: TENORMIN PO SCH ×2 (09:52→14:12)
--- NOTE | 2017-04-02 10:05 | PROGRESS NOTE ---
DATE: 04/02/2017 SUBJECTIVE: The patient currently undergoing hemodialysis. He is scheduled for surgery for hemorrhoidectomy later on today. OBJECTIVE: Vital Signs: Temperature 97.9 degrees, pulse 64, respiratory rate 18, blood pressure 126/53. Intake not measured; output 4 L. General: This is a middle-aged gentleman resting in bed. He is awake and alert in no acute distress. HEENT: Normocephalic, atraumatic. Oral mucosa moist. Neck: Supple. Trachea midline. Cardiovascular: Regular rate and rhythm with systolic murmur. Pulmonary: Equal excursion and is clear bilaterally. Abdomen: Soft, positive bowel sounds. : Not inspected. He has a Baires catheter with continued bloody urine. He has some irritation noted to the insertion site, the urethra. States that his catheter had too much slack on it yesterday; they had to retape it. He has had some pain since. No bleeding around the outside edge of the insertion site. Extremities: Trace pretibial edema. No clubbing, cyanosis. Vascular changes noted. Integumentary: Skin is warm and dry otherwise. AV fistula of left upper extremity currently accessed. LAB DATA: WBC of 9.4, hemoglobin 11.7, potassium 6.0. CO2 28, creatinine 9.3, calcium 10. ASSESSMENT AND PLAN: 1. End-stage renal disease. He underwent dialysis yesterday on a 2 potassium bath. He underwent a complete 4-hour treatment. We are retreating him today. He continues to have potassium of 6, and he is to go to surgery later on. 2. Electrolytes, acid-base balance, otherwise. Continue to address on dialysis. He is on a 2 potassium bath again today. Anemia acceptable. 3. Hemorrhoidectomy is scheduled for later on today. Seen, data reviewed, discussed with Myriam Brown on 04/02/17. I agree with the above assessment and plan of care. rg Dictated by LALA Montero for Cresencio Rivera MD cc: MD Mckay Pimentel MD [facility]
[2017-04-02] MEDS ORDERED: NUPERCAINAL ONE (11:03)
[2017-04-02] MEDS ORDERED: SENSORCAINE 0.5%-EPI 1:200,000 ONE (11:03)
[2017-04-02] MEDS ORDERED: KEFZOL 1 GM/D5W 1 GM/50 ML IVPB ONE (11:22)
[2017-04-02] MEDS: MORPHINE ONE ×5 (12:28→12:58)
[2017-04-02] MEDS ORDERED: D50W SYRINGE ONE (12:43)
[2017-04-02] MEDS ORDERED: SODIUM CHLORIDE 0.9% 10 ML ONE (12:53)
[2017-04-02] MEDS: PHENERGAN ONE ×4 (12:55→14:54)
[2017-04-02] MEDS ORDERED: MORPHINE PCA ONE (12:57)
[2017-04-02] MEDS: DILAUDID ONE ×2 (13:16→13:23)
[2017-04-02] MEDS ORDERED: 1/2 NS 1,000 ML ONE (13:34)
--- NOTE | 2017-04-02 13:51 | OPERATIVE NOTE ---
PROCEDURE DATE: 04/02/2017 PREOP DIAGNOSIS: Prolapsing external and internal hemorrhoids. POSTOP DIAGNOSIS: Prolapsing external and internal hemorrhoids. SECONDARY DIAGNOSES: 1. Morbid obesity. 2. Chronic renal failure on dialysis. 3. Urethral stricture status post urethral dilation by Dr. Brito with Baires catheter placement. DESCRIPTION OF PROCEDURE: The patient brought to the operating room. After satisfactory induction of IV and endotracheal anesthesia, he was placed in the [facility] stirrups. His perineum was prepped and draped in the appropriate manner. There were large prolapsing external and internal hemorrhoids. Anal dilation was performed. Subsequent to this, the retaining retractor was placed with placement of 4 Surgilon stitches on the top and the bottom. Pursestring of 2-0 Prolene was subsequently performed 5 cm inside the anus with exposure of the hemorrhoids. The anvil was subsequently placed proximal to this. It was tested. The anvil was proximal to the pursestring stitches. The pursestring was subsequently tied. The system was hooked up, wound down, held for 1 minute, fired, held for another minute, and removed. A satisfactory large donut was obtained. Inspection of the staple line revealed fairly good hemostasis. A Styrofoam butt plug with Americaine ointment was subsequently placed transanally at the anastomosis area. Sterile dressing was applied. He was subsequently awakened and extubated in the operating room and transferred to recovery. ESTIMATED BLOOD LOSS: Around 20 mL. cc: MD Mckay Church MD
[2017-04-02] MEDS ORDERED: SODIUM CHLORIDE 0.9% INJ PRN (15:44)
[2017-04-02] MEDS ORDERED: PHENERGAN IV PRN (15:44)
[2017-04-02] MEDS ORDERED: NARCAN IV PRN (15:44)
[2017-04-02] MEDS ORDERED: BENADRYL IV PRN (15:44)
[2017-04-02] MEDS: 1/2 NS 1,000 ML IV SCH (15:54)
--- NOTE | 2017-04-02 21:33 | PROGRESS NOTE ---
DATE: 04/02/2017 SUBJECTIVE: The patient went for dialysis. Complains of hemorrhoids. Dr. Funk is going to do a hemorrhoidectomy. Potassium is high and followup potassium was 4.1. The patient was seen in dialysis. OBJECTIVE: Vital signs: Stable. He is not hypertensive. HEENT: Exam within normal limits. Neck: Supple. Chest: Clear. Cardiac: Heart sounds are regular. Belly: Soft, nontender. Good bowel sounds. The rest of the exam is benign. ASSESSMENT AND PLAN: 1. Dilatation of proximal bulbar stricture, on Baires. Discussed with Dr. Brito. He will want to take the Baires out in the morning. 2. Fistula along with hemorrhoids. Waiting for hemorrhoidectomy. 3. Hyperkalemia. Will wash out through dialysis. The patient went to dialysis today. Will follow up after dialysis and hemorrhoid surgery. LEVEL OF DOCUMENTATION: Fifteen minutes. cc: Mckay Wang MD
[2017-04-02] MEDS: COLACE PO SCH (22:15)
[2017-04-02] MEDS: CRESTOR PO SCH (22:15)
[2017-04-03] MEDS: PATIENT'S OWN MED BOTH EYES SCH ×3 (00:38→21:00)
[2017-04-03] MEDS: LANTUS SUBQ SCH ×2 (00:38→21:06)
[2017-04-03] MEDS: HUMALOG SUBQ SCH ×5 (00:38→21:06)
[2017-04-03] MEDS: MORPHINE PCA IV PRN ×2 (05:55→13:06)
[2017-04-03] MEDS: PRILOSEC PO SCH (06:03)
[2017-04-03] MEDS: SYNTHROID PO SCH (06:03)
[2017-04-03 06:38] LABS: MANUAL DIFF NEEDED? NO
[2017-04-03 06:48] LABS: BASO% 0.2 % (0.0-0.8); EOS# 0.51 X1000 (0.0-0.7); HEMATOCRIT 38.9 % (42.0-52.0); HEMOGLOBIN 11.8 g/dL (14.0-18.0); IMM GRAN# 0.02 X1000 (0.0-0.04); IMM GRAN% 0.2 % (0.0-0.5); LYMPH# 3.71 X1000 (1.2-3.4); LYMPH% 36.1 % (20.5-51.1); MCH 28.3 PG (27-31); MCHC 30.3 g/dL (33-37); MCV 93.3 FL (81-99); MONO# 0.96 X1000 (0.11-0.59); MONO% 9.3 % (1.7-9.3); MPV 11.3 FL (7.4-10.4); NEUT% 49.2 % (42.2-75.2); PLT 132 X1000 (130-400); RBC 4.17 XMIL (4.7-6.1)
[2017-04-03] MEDS ORDERED: TIGHT: 0.2 ML/HR MISC PRN (07:25)
[2017-04-03] MEDS ORDERED: HEPARIN IV PRN (07:25)
[2017-04-03] MEDS ORDERED: NS 2,000 ML MISC PRN (07:25)
[2017-04-03 07:28] LABS: CALCIUM 9.5 mg/dL (8.8-10.2); POTASSIUM 5.3 mmol/L (3.5-5.1)
[2017-04-03] MEDS: 1/2 NS 1,000 ML IV SCH ×2 (07:56→13:19)
[2017-04-03] MEDS ORDERED: HEPARIN ONE (08:45)
[2017-04-03] MEDS ORDERED: NS 2,000 ML ONE (08:45)
[2017-04-03] MEDS: RENAGEL PO SCH ×3 (13:06→16:12)
[2017-04-03] MEDS: MIRALAX PO SCH (13:12)
[2017-04-03] MEDS: FISH OIL CONCENTRATE PO SCH (13:13)
[2017-04-03] MEDS: SINGULAIR PO SCH (13:14)
[2017-04-03] MEDS: NEURONTIN PO SCH (13:14)
[2017-04-03] MEDS: COLACE PO SCH ×2 (13:14→21:06)
[2017-04-03] MEDS: TENORMIN PO SCH (13:15)
[2017-04-03] MEDS: ASPIRIN PO SCH (13:15)
--- NOTE | 2017-04-03 15:08 | PROGRESS NOTE ---
DATE: 04/03/2017 TIME SEEN: 08:00. SUBJECTIVE: Patient is sitting up in bed eating breakfast. He has no complaints this morning aside from some pain to the urethral catheter insertion site. OBJECTIVE: Vital Signs: Temperature 98.3 degrees, pulse 73, respiratory rate 18, blood pressure 144/70. Intake 1.1 L, output 645 mL. General: This is a middle-aged gentleman , resting in bed. He is awake, alert, no acute distress. HEENT: Normocephalic, atraumatic. His oral mucosa is moist. Neck: Supple. There is no JVD. Cardiovascular: Regular rate and rhythm. Systolic murmur noted. Pulmonary: Equal excursion. He is on room air. He is clear bilaterally. No increased work of breathing. Abdomen: Obese, soft, positive bowel sounds. : Not inspected. He has a Baires catheter with bloody urine noted. Extremities: He continues with trace pretibial edema. No clubbing or cyanosis. He has been ambulatory. Integumentary: Skin is warm and dry without other rash or lesion. LAB DATA: WBC of 10.2, hemoglobin 11.8. Sodium 134, potassium 5.3, CO2 28, BUN 28, creatinine 7.6, calcium 9.5. ASSESSMENT AND PLAN: 1. End-stage renal disease management. Today is the patient's routine dialysis day. We will plan to dialyze him on a 2 K bath/UF to dry weight/four hour treatment. 2. Electrolytes, acid-base balance, anemia. See #1 for plan. Continue to balance with his dialysate. 3. Hemorrhoidectomy. Patient underwent this yesterday without complication. 4. Blood pressure acceptable. 5. Fluid volume. He is not overloaded. Seen, data reviewed, discussed with Myriam Brown on 04/03/17. I agree with the above assessment and plan of care. rg Dictated by LALA Montero for Cresencio Rivera MD cc: MD Mckay Pimentel MD [facility]
--- NOTE | 2017-04-03 20:11 | PROGRESS NOTE ---
DATE: 04/03/2017 SUBJECTIVE: The patient is in a lot of pain after hemorrhoidectomy on AUTOMOTIVE FINANCE MANAGER pump. REVIEW OF SYSTEMS: None reported. PHYSICAL EXAMINATION: Vital Signs: Stable. Blood pressure is stable. Input and output: -2 L. HEENT: Within normal limits. Chest: Clear. Heart: Sounds are regular. Abdomen: Belly is soft, nontender. Good bowel sounds. Extremities: No peripheral edema. ASSESSMENT AND PLAN: 1. Hypotension, better. 2. Status post hemorrhoidectomy, under PCI pump. 3. End-stage kidney disease, on dialysis tomorrow. 4. Dilatation of bulbar stricture. We will discontinue Baires in the morning and if the pain is controlled by oral medicine, he will be discharged and will follow up on the clinical course. LEVEL OF DOCUMENTATION: 15 minutes. cc: Mckay Wang MD
[2017-04-03] MEDS: CRESTOR PO SCH (21:05)
[2017-04-03] MEDS ORDERED: MORPHINE PCA IV PRN (23:00)
[2017-04-04] MEDS: PRILOSEC PO SCH (06:49)
[2017-04-04] MEDS: SYNTHROID PO SCH (06:49)
[2017-04-04] MEDS: HUMALOG SUBQ SCH ×4 (07:03→22:01)
[2017-04-04] MEDS: 1/2 NS 1,000 ML IV SCH (09:08)
[2017-04-04] MEDS: TENORMIN PO SCH (09:11)
[2017-04-04] MEDS: MIRALAX PO SCH (09:11)
[2017-04-04] MEDS: RENAGEL PO SCH ×3 (09:11→16:58)
[2017-04-04] MEDS: NEURONTIN PO SCH (09:12)
[2017-04-04] MEDS: COLACE PO SCH ×2 (09:12→22:02)
[2017-04-04] MEDS: SINGULAIR PO SCH (09:12)
[2017-04-04] MEDS: ZYLOPRIM PO SCH (09:12)
[2017-04-04] MEDS: FISH OIL CONCENTRATE PO SCH (09:12)
[2017-04-04] MEDS: NORCO-5 PO PRN (09:12)
[2017-04-04] MEDS: ASPIRIN PO SCH (09:13)
[2017-04-04] MEDS: PATIENT'S OWN MED BOTH EYES SCH (09:13)
[2017-04-04] MEDS: BENADRYL IV PRN (13:57)
--- NOTE | 2017-04-04 21:56 | PROGRESS NOTE ---
DATE: 04/04/2017 SUBJECTIVE: The patient is in pain, mental status changes and status post hemorrhoidectomy. Going for dialysis tomorrow. REVIEW OF SYSTEMS: None reported. PHYSICAL EXAMINATION: Vital Signs: Afebrile. Vitals are stable. Input and output +955. HEENT: Within normal limits. Neck: Supple. No lymphadenopathy. Chest: Clear to auscultation. Heart: Sounds are regular. Abdomen: Belly is soft, nontender. Good bowel sounds and no masses palpable. Extremities: No peripheral edema, cyanosis. Neurologic: No obvious neurological deficits. ASSESSMENT AND PLAN: 1. Hypertension, better. 2. Status post hemorrhoidectomy. I looked at the perirectal area. Looks stable. 3. Status post stricture, dilatation of proximal urethra. Discontinue Baires. 4. End-stage kidney disease, dialysis tomorrow. 5. Altered mental status. Discontinue morphine, patient-controlled analgesia pump. Oral pain medication and continue Benadryl for itching. I will follow up. cc: Mckay Wang MD
[2017-04-04] MEDS: LANTUS SUBQ SCH (22:02)
[2017-04-04] MEDS: CRESTOR PO SCH (22:02)
[2017-04-05] MEDS: PATIENT'S OWN MED BOTH EYES SCH ×3 (03:20→22:17)
[2017-04-05] MEDS: 1/2 NS 1,000 ML IV SCH (06:20)
[2017-04-05] MEDS: SYNTHROID PO SCH (06:20)
[2017-04-05] MEDS: PRILOSEC PO SCH (06:20)
[2017-04-05] MEDS: HUMALOG SUBQ SCH ×3 (06:32→22:15)
[2017-04-05] MEDS ORDERED: TIGHT: 0.2 ML/HR MISC PRN (06:58)
[2017-04-05] MEDS ORDERED: HEPARIN IV PRN (06:58)
[2017-04-05] MEDS ORDERED: NS 2,000 ML MISC PRN (06:58)
[2017-04-05] MEDS ORDERED: NS 2,000 ML ONE (08:14)
--- NOTE | 2017-04-05 09:02 | PROGRESS NOTE ---
DATE: 04/05/2017 SUBJECTIVE: No new complaints. He is hoping for discharge. No shortness of breath or chest discomfort. OBJECTIVE: Vital Signs: Blood pressure 114/64, heart rate 66, respirations 15, afebrile. Generally, he is an obese man in no distress. Skin is warm and dry. Conjunctivae are pink. Pupils are equal. No jugular venous distention. Heart is regular without gallops or murmurs. Lungs have equal breath sounds. No crackles. Abdomen soft, nontender. Bowel sounds present. Extremities have trace edema. No clubbing or cyanosis. LABORATORY DATA: None today. IMPRESSION: 1. End-stage kidney disease. He will have his routine hemodialysis today. 2. Hypotension, improved. Continue current care. 3. Anemia. Within target. cc: MD Mckay Pimentel MD
[2017-04-05] MEDS: RENAGEL PO SCH ×3 (09:46→18:05)
[2017-04-05] MEDS: COLACE PO SCH ×3 (14:00→22:16)
[2017-04-05] MEDS: ASPIRIN PO SCH (14:10)
[2017-04-05] MEDS: ZYLOPRIM PO SCH ×4 (14:11→14:20)
[2017-04-05] MEDS: TENORMIN PO SCH (14:14)
[2017-04-05] MEDS: SINGULAIR PO SCH ×2 (14:15→14:20)
[2017-04-05] MEDS: NEURONTIN PO SCH ×2 (14:15→14:19)
[2017-04-05] MEDS: MIRALAX PO SCH ×2 (14:17→14:19)
[2017-04-05] MEDS: FISH OIL CONCENTRATE PO SCH ×2 (14:17→14:20)
[2017-04-05] MEDS ORDERED: INSULIN PEN NEEDLES ONE (17:09)
--- NOTE | 2017-04-05 19:38 | PROGRESS NOTE ---
DATE: 04/05/2017 SUBJECTIVE: The patient is a little better. Going for dialysis. Baires was discontinued. Pain is much better. Complains of itching. REVIEW OF SYSTEMS: None reported. PHYSICAL EXAMINATION: Vital Signs: Afebrile. Vitals are stable. Weight is 277 pounds. I's and O's are -2.7. HEENT Examination: Within normal limits. Neck: Supple. Chest: Clear. Heart: Sounds are regular. Abdomen: Belly is soft, nontender. Good bowel sounds. Extremities: No peripheral edema or cyanosis. Neurologic: No obvious neurological deficits. ASSESSMENT AND PLAN: 1. Status post hemorrhoidectomy, stable. 2. Status post dilatation of bulbar stricture, stable. Discontinue Baires. 3. End-stage kidney disease on dialysis. 4. Hypotension is better. 5. Increase activities. If he is stable he will be discharged over the weekend. The patient is going for dialysis this afternoon. LEVEL OF DOCUMENTATION: 15 minutes. cc: Mckay Wang MD
[2017-04-05] MEDS: LANTUS SUBQ SCH (22:16)
[2017-04-05] MEDS: CRESTOR PO SCH (22:16)
[2017-04-05] MEDS: BENADRYL IV PRN (22:17)
[2017-04-05] MEDS: NORCO-5 PO PRN (22:17)
[2017-04-06] MEDS: HUMALOG SUBQ SCH (06:35)
[2017-04-06] MEDS: 1/2 NS 1,000 ML IV SCH (06:36)
[2017-04-06] MEDS: PRILOSEC PO SCH (07:04)
[2017-04-06] MEDS: SYNTHROID PO SCH (07:04)
[2017-04-06 07:32] VITALS: BP 110/52
[2017-04-06] MEDS: NEURONTIN PO SCH (08:39)
[2017-04-06] MEDS: COLACE PO SCH (08:39)
[2017-04-06] MEDS: FISH OIL CONCENTRATE PO SCH (08:39)
[2017-04-06] MEDS: ASPIRIN PO SCH (08:39)
[2017-04-06] MEDS: SINGULAIR PO SCH (08:39)
[2017-04-06] MEDS: ZYLOPRIM PO SCH (08:40)
[2017-04-06] MEDS: MIRALAX PO SCH (08:40)
[2017-04-06] MEDS: RENAGEL PO SCH (08:40)
[2017-04-06] MEDS: TENORMIN PO SCH (08:40)
[2017-04-06] MEDS: PATIENT'S OWN MED BOTH EYES SCH (08:44)
[2017-04-06] MEDS: DERMOPLAST SPRAY TOP PRN (08:48)
[2017-04-06] MEDS: TUCKS PADS TOP PRN (10:05)
[2017-04-06] MEDS: NORCO-5 PO PRN (10:05)
--- NOTE | 2017-04-06 13:07 | PROGRESS NOTE ---
DATE: 04/06/2017 SUBJECTIVE: The patient says he feels fine. He wants to go home. He had his dialysis yesterday. His vital signs are stable. He says he has a sick at home. He came in with hypotension, renal failure, diabetes, hypertension. He seems to be doing much better now. He has been here for several days. He will follow up with Dr. Rivera and his dialysis on Saturday, and he is to call Dr. Wang and see when he wants to see him in the office. OBJECTIVE: Vital signs are stable. HEENT is normocephalic. EOMs intact. PERRLA. Throat clear. Lungs clear to auscultation and percussion without rhonchi, rales, or wheezes. Heart: Regular rate and rhythm without murmurs, gallops, or friction rubs. Abdomen is soft with active bowel sounds. No organomegaly or tenderness. Neurologic intact grossly. Patient is morbidly obese. ASSESSMENT: 1. Hypotension. 2. Renal failure. 3. Morbid obesity. 4. Diabetes mellitus. PLAN: We will discharge home on home medications. cc: MD Mckay Holm Jr, MD
--- NOTE | 2017-04-06 20:13 | DISCHARGE SUMMARY ---
ADMISSION DATE: 03/21/2017 DISCHARGE DATE: 04/06/2017 DISCHARGING DIAGNOSES: 1. Syncope due to orthostatic hypotension due to secondary adrenal insufficiency from exogenous use of steroids. 2. Prolapsed external and internal hemorrhoids. 3. Fistula in ano. Workup is pending for Crohn's disease. 4. Tinea cruris, with secondary bacterial infection. 5. End-stage kidney disease on dialysis. 6. Mild cognitive impairment. 7. Proximal bulbar stricture. 8. Type 2 diabetes. 9. Hypertension. 10. Acid reflux disease. 11. Glaucoma. 12. Obesity. 13. Gout. 14. Hyperlipidemia. 15. Hypothyroidism. 16. Peripheral neuropathy. 17. Dystrophic calcification in the buttocks muscles. CONSULTANTS: Dr. Brito, Dr. Funk, Dr. Rios, Dr. Rivera. PROCEDURES: 1. Inpatient dialysis. 2. Cystoscopy, with dilatation of bulbar stricture, without any fistula. 3. Hemorrhoidectomy for prolapsed internal/external hemorrhoid by Dr. Funk. RADIOLOGY PROCEDURES: Retrograde pyelogram: Normal, without any evidence of fistula. Cardiology myocardial perfusion scan: Negative. Lexiscan stress: EF 75%. No reversible ischemia. BRIEF HISTORY: Please see the H and P that was done by Dr. Vasquez. In brief , he is a 66-year- old male with above problems. Was admitted to the hospital with intractable rectal pain due to fistula, as well as prolapsed hemorrhoids. He also had significant hypotension. As a result, he was not able to go for dialysis. HOSPITAL COURSE: 1. For hypotension, the patient had a borderline positive for cortisone stimulation test. He had taken several hydrocortisone suppositories for rectal pain. I did advise the patient to stop the hydrocortisone suppository. As a part of the workup, Cardiology consult was obtained. He did not have any structural heart disease. 2. End-stage kidney disease. He has remained on hemodialysis. 3. For fistula evaluation, Dr. Brito consulted. He did not have any a vesicocolonic fistula. He has a proximal bulbar stricture from the previous penile implant procedures. He also had [address] Brito did a normal retrograde pyelogram and dilated bulbar proximal stricture. Baires catheter was discontinued. 4. Intractable pain due to prolapsed hemorrhoids. He was not able to improve. As a result, Dr. Funk did a hemorrhoidectomy. He was given pain control initially with a PCI pump, which was discontinued. Patient remained stable after the procedure. Pain is adequately controlled. Able to walk, and was discharged on 04/06/2017 in stable condition. LABORATORY STUDIES: CBC: White cell count 10, hematocrit 38, platelets 132, 000. SMA-7: Sodium 134, potassium 5.3, chloride 91, BUN 28, creatinine 7.6. DISCHARGE INSTRUCTIONS: 1. Januvia 100 daily. 2. Atenolol was decreased to 25 mg daily. 3. Singulair 10 mg daily. 4. Prilosec 20 daily. 5. Gabapentin 100 daily. 6. Crestor 20 mg daily. 7. Synthroid 75 mcg daily. 8. Lantus 40 units subcutaneous at bedtime. 9. Simbrinza drops in both eyes b.i.d. 10. Fish oil 1 tablet daily. 11. Allopurinol 100 daily. 12. Renvela 800 mg 3 tablets t.i.d. 13. Hydrocortisone cream as needed. 14. Celebrex 200 daily. 15. Continue to follow up with Dr. Rivera for dialysis. cc: MD Florentin Salazar MD Reginald D. Gladish, MD Hugh Nabers William E. Hughes, MD MTDD
--- NOTE | 2017-04-16 12:32 | PROVIDER DOCUMENTATION ---
This chart was entered by Shayy Hartmann Scribe, acting as scribe for Manuel Ogden MD. HPI-General Adult - General Chief Complaint: B/P Problems Stated Complaint: LOW BLOOD PRESSURE Time Seen by Provider: 03/21/17 14:59 Source: patient, family () Allergies/Adverse Reactions: Patient Allergies Allergy/AdvReac Type Severity Reaction Status Date / Time No Known Allergies Allergy Verified 03/11/17 16:49 Home Medications: Home Medication List Medication Instructions Recorded Confirmed Last Taken Type Allopurinol 100 mg PO DAILY 10/04/16 03/21/17 03/21/17 History Atenolol 100 mg PO DAILY 10/04/16 03/21/17 03/21/17 History Brinzolamide/Brimonidine Tart 8 ml BOTH EYES BID 10/04/16 03/21/17 03/21/17 History [Simbrinza 1%-0.2% Eye Drops] Fish Oil/Dha/Epa [Fish Oil 1,200 1 each PO DAILY 10/04/16 03/21/17 03/21/17 History mg Fish Oil] Gabapentin 100 mg PO DAILY 10/04/16 03/21/17 03/21/17 History Insulin Glargine [Lantus] 40 unit SUBQ QHS 10/04/16 03/21/17 03/20/17 History Levothyroxine Sodium 75 mcg PO DAILY 10/04/16 03/21/17 03/21/17 History Montelukast Sodium [Singulair] 10 mg PO DAILY 10/04/16 03/21/17 03/21/17 History Omeprazole [Prilosec] 20 mg PO DAILY@0700 10/04/16 03/21/17 03/21/17 History ROSUVAstatin [Crestor] 20 mg PO DAILY 10/04/16 03/21/17 03/21/17 History Sevelamer Carbonate [Renvela] 2,400 mg PO TID 10/04/16 03/21/17 03/21/17 History Sitagliptin Phosphate [Januvia] 100 mg PO DAILY 10/04/16 03/21/17 03/21/17 History Hydrocortisone 2.5% Cream 1 gm [place] 4XDAY tube 03/15/17 03/21/17 03/21/17 Rx [Anusol-Hc Cream] Celecoxib [Celebrex] 200 mg PO DAILY 03/30/17 03/30/17 1 Week Ago History - History of Present Illness -Gen Adult Nature of Presenting Problems: 66 y/o M presents to ED cc of hypotension. Pt was at out sx where he was sent to ED due to hypotension. Pt is on dialysis and was done yesterday. Pt states he has hemorrhoids and has been having trouble with them. Pt denies having any N /V/D. Pt is alert and oriented. Location of Pain/Injury: reports: none Pain Radiation: reports: no radiation Quality of Pain: reports: none Severity: reports: mild Onset/Duration: reports: just prior to arrival Timing: reports: still present Context/Activities at Onset: reports: light activity Modifying Factors: improves with: nothing Associated Symptoms: reports: other (HYPOTENSION). denies: chest pain, constipation, cough, diaphoresis, fatigue, fever/chills, genitourinary problems , headaches, muscle aches, sinus congestion/drainage, nausea, shortness of breath, syncope, vomiting, trouble walking Similar Symptoms Previously?: No Recently seen or treated by another doctor?: No Review of Systems - Adult - REVIEW OF SYSTEMS - ADULT Constitutional: reports: other (hypotension). denies: chills, fever, night sweats Cardiovascular: denies: chest pain, palpitations Respiratory: denies: cough, shortness of breath Gastrointestinal: denies: abdominal pain, diarrhea, frequent heartburn, nausea, rectal bleeding, vomiting Genitourinary: denies: hematuria, hesitency Musculoskeletal: reports: other (R flank pain). denies: bone pain, back pain Neurological: denies: dizziness/vertigo, headache/migraines Past History - Adult - PAST MEDICAL HISTORY-ADULT Review of Records: reports: Old Records Reviewed, Nursing Assessment Review Major Childhood Illnesses: reports: denies history Cardiovascular: reports: HTN, hyperlipidemia Respiratory: reports: denies history Gastrointestinal: reports: GERD Obstetrical/Gynecological: reports: denies history Genitourinary: reports: dialysis (MWF), ESRD Musculoskeletal: reports: denies history Neurological: reports: denies history Endocrine/Immune: reports: denies history Other Conditions: reports: denies history - PRIOR SURGERIES/PROCEDURES Surgical/Procedure History: reports: back/neck, other (uretheral repair, shunt placement) - IMMUNIZATION STATUS Childhood Immunizations: See Nurse Assessment Flu Vaccine: See Nurse Assessment - FAMILY HISTORY Family History: reviewed, not pertinent - SOCIAL HISTORY Smoking: quit greater than 1 year Substance Use: denies Physical Exam-General - PHYSICAL EXAM-ADULT Initial Vital Signs Reviewed: Yes - CONSTITUTIONAL General Appearance: appears well, alert, no apparent distress - EYES Eyes: PERRL/EOMI, pink conjunctivae - HEAD, EARS, NOSE, MOUTH & THROAT HENMT: normocephalic/atraumatic, moist mucous membranes, normal ENT inspection - NECK Neck: non-tender, full range of motion - RESPIRATORY Respiratory: chest non-tender, lungs clear, normal breath sounds, no pleuratic chest pain, no respiratory distress, no accessory muscle use. negative: respiratory distress, decreased breath sounds, accessory muscle use - CARDIOVASCULAR Cardiovascular: normal peripheral pulses, regular rate, rhythm, no edema, no gallop, no JVD, no murmur - GASTROINTESTINAL (ABDOMEN) Abdominal Exam: normal bowel sounds, non tender, soft - MUSCULOSKELETAL Back Exam: normal inspection, no CVA tenderness, no vertebral tenderness Extremity: normal range of motion, non-tender, normal gait - SKIN Integumentary: normal color, normal turgor, warm/dry - NEUROLOGIC Neurologic: milieu counselor II-XII nml as tested, grossly normal, no motor/sensory deficits - PSYCHIATRIC Psych/Mental Status: oriented x 3 Progress - PLAN OF CARE/RESULTS Progress/Plan/Lab Results: Vital Signs - 8 hr 03/21/17 14:39 03/21/17 15:18 Temperature 98.7 F Pulse Rate 65 65 Respiratory Rate 18 18 Blood Pressure 91/51 79/44 O2 Sat by Pulse Oximetry 98 96 Laboratory Results - last 24 hr 03/21/17 15:00 WBC 7.47 RBC 4.32 L Hgb 12.0 L Hct 40.0 L MCV 92.6 MCH 27.8 MCHC 30.0 L RDW Std Deviation 19.0 H Plt Count 124 L MPV 11.8 H Immature Gran % (Auto) 0.4 Neut % (Auto) 31.6 L Lymph % (Auto) 53.3 H Darke % (Auto) 7.9 Eos % (Auto) 6.0 Baso % (Auto) 0.8 Immature Gran # (Auto) 0.03 Neut # (Auto) 2.36 Lymph # (Auto) 3.98 H Darke # (Auto) 0.59 Eos # (Auto) 0.45 Baso # (Auto) 0.06 Orders Category Date Time Status Cardiac Monitoring DIRECTED Care 03/21/17 15:01 Active Saline Loc NOW Care 03/21/17 15:01 Active CHEST-PORTABLE [RAD] Stat Exams 03/21/17 15:01 Completed CBC WITH ELECTRONIC DIFF [HEME] Stat Lab 03/21/17 15:00 Completed CK PROFILE [SP CHEM] Stat Lab 03/21/17 15:00 Received COMPREHENSIVE METABOLIC PANEL [CHEM] Stat Lab 03/21/17 15:00 Received MAGNESIUM [CHEM] Stat Lab 03/21/17 15:00 Received PRO B-NATRIURETIC PEPTIDE Stat Lab 03/21/17 15:00 Received PROTIME WITH INR [COAG] Stat Lab 03/21/17 15:00 Received PTT [COAG] Stat Lab 03/21/17 15:00 Received TROPONIN T Stat Lab 03/21/17 15:00 Received Aspirin Med 03/21/17 15:00 Discontinued 325 mg PO STAT STA EKG [EKG] Stat Ther 03/21/17 15:01 Draft Result Diagrams: 04/03/17 06:10 04/03/17 06:00 - CONSULTS/PCP/HOSPITALIST Notification #1 *Consult/PCP/Hospitalist*: ( mattress and foundation sewer for PCP) Time Discussed: 16:28 Consult Disposition: Admit Departure - Departure Date of Disposition Decision: 03/21/17 Time of Disposition Decision: 16:28 DIAGNOSIS: Hypotension Disposition: ADMITTED INPATIENT 09 Certified Medical Emergency: Emergent Condition: Stable - Critical Care Note This patient required my direct & personal management of CC.: No Attestation - Physician/ TORRES Attestation The physician spent face to face time with patient:: Yes Advanced Practice Provider documentation review:: Supervising physician onsite and consulted in the evaluation and care of this patient. The physician did have a face to face encounter with the patient. This chart was documented by the indicated scribe, (Shayy Hartmann Scribe) and accurately reflects the services I performed and decisions made by me, Manuel Ogden MD, as attested by the provider's signature.
== END 2017-04-06 13:33 | disposition home health service (06) ==
LOC: ED 14:34 → 3N 17:03
PROVIDERS: ADMIT Internal Medicine; ATTEND Internal Medicine

== ENCOUNTER 2019-09-08 12:40 | Inpatient (IN) ==
[2019-09-08] MEDS ORDERED: VANCOMYCIN 500 MG/NS 500 MG/100 ML IVPB IV ONE (15:34)
[2019-09-08] MEDS ORDERED: TAZIDIME 1 GM in NS 50 ML IV SCH (15:45)
[2019-09-08] MEDS ORDERED: VANCOMYCIN 1 GM/NS 1 GM/250 ML IVPB IV SCH (15:45)
[2019-09-08] MEDS ORDERED: SALINE LOCK IV FLUID XX ONE (16:11)
[2019-09-08] MEDS ORDERED: MIRALAX PO PRN (21:18)
[2019-09-08] MEDS ORDERED: FERRIC CITRATE PO SCH (21:30)
[2019-09-08] MEDS: NEURONTIN PO SCH (22:46)
--- NOTE | 2019-09-09 05:23 | GENERAL SURGERY CONSULTATION ---
DATE: 09/08/2019 REASON FOR CONSULTATION: Right 3rd digit of the hand wound. CHIEF COMPLAINT: Cough and shortness of breath. HISTORY OF PRESENT ILLNESS: This is a 68-year-old with multiple medical issues. He has end-stage renal disease and peripheral vascular disease. He has required bilateral above-knee amputations, chronic wounds of the upper extremities, and has history of calciphylaxis. He is known to me over the last several years for various chronic wounds. He was seen recently for some ulcerations of the distal digits, which he has had for quite some time as well as contractures of the digits. These seem to be healed, and they come out in the heel. He was admitted for productive cough, shortness of breath and pneumonia. I have been consulted to weigh in on the 3rd digit wound. PAST MEDICAL HISTORY: As noted in HPI. PAST SURGICAL HISTORY: Numerous dialysis access as well as bilateral above-knee amputations. His dialysis access currently is in his left arm. SOCIAL HISTORY: He does not currently smoke or drink alcohol. He is , but his has multiple medical issues. REVIEW OF SYSTEMS: A 10-point review of systems is negative other than what is mentioned in HPI. FAMILY HISTORY: Reviewed. PHYSICAL EXAMINATION: Vital Signs: He is afebrile, pulse 86, blood pressure 120/62. Oxygen saturation is 97% on room air. General: He is alert in no acute distress. HEENT: No scleral icterus. No cervical mass. Cardiovascular: Normal rate. Pulmonary: He does have a cough, but he is in no acute distress. Abdomen: Soft. Integument: Warm and dry. Musculoskeletal: On the right 3rd digit of his hand, there is avulsion of the nail. There is some ulceration in the distal aspect, and scant amount of purulent material. There is no cellulitis, and the digit seems to be well perfused. He also has bilateral above knee amputations. Neurologic: Generalized weakness, but no other focal deficits. Psychiatric: He has appropriate affect. LABORATORY: Labs are pending. He has had no imaging as yet. ASSESSMENT AND PLAN: A 68-year-old gentleman with chronic wounds. Now, currently, he has a wound on his right 3rd digit. We will continue local wound care. We will apply some Santyl to this. The antibiotic coverage for his pneumonia should cover any infections here. He may ultimately require amputation of the distal aspect of the digit, but will allow him to improve from a pulmonary standpoint prior to this. I will continue local wound care at the bedside, and follow along going forward as he clinically improves. We can plan for possible surgical intervention although he has had similar type wounds on bilateral hands that have healed with local wound care. We will follow along. cc: MD Mckay Marley MD
[2019-09-09] MEDS ORDERED: HEPARIN IV PRN (06:39)
[2019-09-09] MEDS ORDERED: TIGHT: 0.2 ML/HR FOR DIALYSIS MISC PRN (06:39)
[2019-09-09] MEDS ORDERED: NS 2,000 ML MISC PRN (06:39)
--- NOTE | 2019-09-09 07:18 | NEPHROLOGY CONSULTATION ---
DATE: 09/08/2019 REASON FOR CONSULTATION: Dialysis patient, end stage kidney disease, antibiotics, and peripheral vascular disease contacted directly by Dr. Wang. HISTORY OF PRESENT ILLNESS: Mr. Ordonez is a 68-year-old man with ESRD, hypertension, obesity, and diabetes. He has severe peripheral vascular disease, and had an episode of calciphylaxis in the past. He has suffered bilateral above knee amputations, and has ischemia in both hands. He has an ulceration on the right long finger. He was seen by Dr. Streeter and then by Dr. Wang. Erythema, exudate, and malodorous discharge resulted in admission. No chills or fevers. Appetite is low, but no vomiting. Yesterday was his routine dialysis today. PAST MEDICAL HISTORY: As above. HOME MEDICATIONS: 1. Sitagliptin. 2. Omeprazole. 3. Gabapentin. 4. Rosuvastatin. 5. Levothyroxine. 6. Simbrinza. 7. Allopurinol 9. Montelukast. 10. Escitalopram. 11. Ferrous citrate. 12. Cinacalcet. 13. Polyethylene glycol. ALLERGIES: None. SOCIAL HISTORY: He is and lives with his . No active alcohol or tobacco use. His also has CKD 5D and peripheral vascular disease with nonhealing wound. FAMILY HISTORY: Noncontributory. REVIEW OF SYSTEMS: Noncontributory. PHYSICAL EXAMINATION: Vital Signs: Blood pressure 110/62, heart rate 86, respirations 20, and afebrile. General: Obese, black male in no acute distress. Skin: Warm and dry. HEENT: Conjunctivae are pink. Pupils are equal. Oropharynx is clear. Tongue is midline. Dentition normal. Neck: Supple. Trachea is midline. Neck veins are not distended. Heart: PMI nondisplaced. Regular rate and rhythm. Lungs: Equal excursion. Equal breath sounds. No crackles or wheezes. Abdomen: Obese. Soft and nontender. Bowel sounds present. No palpable organomegaly or masses. Extremities: No edema, clubbing, or cyanosis. Bilateral AKA's. Right long finger with shallow ulceration and loss of the nail. The finger is truncated. No surrounding erythema. IMPRESSION: Peripheral vascular disease with ischemic ulceration. He has been evaluated by Dr. Streeter who will see him in the hospital. He is admitted to the hospital, and has started ceftazidime and vancomycin. This does not appear to be calciphylaxis. Home medications have been restarted including his cinacalcet. He will have his routine dialysis tomorrow. cc: MD Mckay Pimentel MD MTDD
[2019-09-09 07:41] LABS: HEMOGLOBIN A1C 5.6 % (4.8-6.0)
--- NOTE | 2019-09-09 07:44 | EKG Report ---
Test Performed on : 09/09/2019 06:42:33 AM Test Reason : cp Blood Pressure : / mmHG Vent. Rate : 081 BPM Atrial Rate : 081 BPM P-R Int : 204 ms QRS Dur : 120 ms QT Int : 364 ms P-R-T Axes : 051 -39 028 degrees QTc Int : 422 ms Normal sinus rhythm. Left axis deviation RSR' or QR pattern in V1 suggests right ventricular conduction delay Abnormal ECG When compared with ECG of 05-AUG-2017 09:49, ST no longer depressed in Anterior leads Confirmed by Roc STREET, Laci Barreto ([id number]) on 09/09/2019 10:20:49 AM
--- NOTE | 2019-09-09 07:50 | Diag Imaging Result Doc PS360 ---
EXAM: CHEST-2 VIEWS 09/09/2019 HISTORY: hypoxia TECHNIQUE: PA and lateral chest COMMENT: The inspiration is less optimal than on 12/12/2017. Otherwise considering differences in technique are has been no significant change. IMPRESSION: Stable chest. Electronically signed by Karel Leblanc 09/09/2019 7:48 AM
[2019-09-09 08:25] LABS: ALB/GLOB RATIO 0.6; ALBUMIN 2.8 g/dL (3.5-5.0); CALCIUM 9.3 mg/dL (8.8-10.2); POTASSIUM 4.6 mmol/L (3.5-5.1); TOTAL BILIRUBIN 0.33 mg/dL (0.20-1.00); TOTAL PROTEIN 7.3 g/dL (6.3-8.3)
[2019-09-09 08:34] LABS: CREATININE 11.6 mg/dL (0.7-1.2)
--- NOTE | 2019-09-09 08:38 | HISTORY AND PHYSICAL ---
CHIEF COMPLAINT: 1. Cough for the last 2 weeks nonproductive. 2. Nonhealing right 3rd middle finger slightly ischemic. HISTORY OF PRESENT ILLNESS: He is a 68-year-old male who came in my office with family. Basically, a cough for the last 2 weeks, and a nonhealing right middle finger, mostly ischemic Upon exam, he has crackles in the right base. Chest x-ray showed infiltrate in the right lower lobe. I spoke to Dr. Rivera as well as to the patient. We gave him 2 options. He was seen by Dr. Streeter a month ago for this middle finger on the right side, which is not healing. Obviously, he is ischemic with small vessel disease. Basically, he is admitted to the hospital with right lower lobe pneumonia with IV antibiotics with vancomycin and Fortaz post dialysis and possible amputation of the 3rd finger. We will consult Dr. Streeter while he is here. As a result, the hospital admission was warranted. PAST MEDICAL HISTORY: Mild cognitive impairment, end-stage kidney disease on dialysis, external hemorrhoids, type 2 diabetes, hypertension, acid reflux disease, glaucoma, obesity, gout, hyperlipidemia, hypothyroidism, and calciphylaxis changes. PAST SURGICAL HISTORY: AV fistula on the left arm, C-spine fusion, removal of penile implant, bladder neck repair, and bilateral above knee amputations. MEDICATIONS: 1. Januvia 50 daily. 2. Prilosec 20 daily. 3. Gabapentin 800 once daily. 4. Crestor 20 daily. 5. Synthroid 75 mcg daily. 6. Simbrinza 1 drop in the right eye b.i.d. 7. Allopurinol 100 daily. 8. Singulair 10 daily. 9. Lexapro 10 daily. 10. Ferric citrate 210 mg once daily. 11. Sensipar 90 mg once daily. 12. MiraLAX 100 mg daily. ALLERGIES: Not known. SOCIAL HISTORY: No smoking. No alcohol. Retired. for 41 years with 4 kids. FAMILY HISTORY: Father of kidney failure at 87. Mom of lung cancer at 56. HEALTH MAINTENANCE: Flu vaccine 2019, pneumococcal 2016. Last checkup 2018 Dr. Castillo with colonoscopy. REVIEW OF SYSTEMS: HEENT: No headache. No vision problem. No earache. No sore throat. Neck: No neck pain. No goiter. There is a bruit on both sides. Cardiopulmonary: Coughing. No chest pain. No shortness of breath, PND, or orthopnea. GI: No nausea, vomiting, abdominal pain. Musculoskeletal: History of libido, chronic phantom pains, and nonhealing right middle finger. Neurologic: No obvious neurological deficits. PHYSICAL EXAMINATION: VITAL SIGNS: Temperature 98.6 degrees, pulse 86, blood pressure 110/62, and 97% on room air. Height 5 feet 10 inches and 238 pounds. HEENT: Atraumatic normocephalic. Pupils equal and reactive to light. TMs are normal. Nose and throat within normal limits. NECK: Supple. No lymphadenopathy. No goiter. CHEST: Bilateral air entry with crackles in the right base. HEART: Sounds are regular. Belly is soft, obese, and nontender. EXTREMITIES: Bilateral above-knee amputation. The patient was in wheel chair. LABORATORY: Labs in my office, white cell count 13,000, creatinine 6.8. Chest x-ray right lower lobe infiltrate. ASSESSMENT AND PLAN: 1. A 68-year-old male admitted to the hospital with cough with right lower lobe infiltrate and elevated white cell count. Continue IV antibiotics post dialysis. 2. End-stage kidney disease as per Dr. Rivera. 3. Reconcile home medicines. 4. Nonhealing right middle finger. Dr. Streeter consult for possible amputation. 5. Initiate vaccination protocol. Will follow up. cc: Mckay Wang MD [facility]
--- NOTE | 2019-09-09 10:08 | EKG Report ---
Test Performed on : 09/09/2019 10:02:50 AM Test Reason : chest pain Blood Pressure : / mmHG Vent. Rate : 086 BPM Atrial Rate : 086 BPM P-R Int : 186 ms QRS Dur : 114 ms QT Int : 372 ms P-R-T Axes : 038 -51 047 degrees QTc Int : 445 ms Normal sinus rhythm. Incomplete right bundle branch block Left anterior fascicular block Abnormal ECG When compared with ECG of 09-SEP-2019 06:42, (Unconfirmed) No significant change was found Confirmed by Roc STREET, Laci Barreto ([id number]) on 09/09/2019 10:22:51 AM
--- NOTE | 2019-09-09 13:21 | NEPHROLOGY PROGRESS NOTE ---
DATE: 09/09/2019 TIME SEEN: 07:15. SUBJECTIVE: Mr. Ordonez is resting on the side of the bed. States that his elbows have given him pain during the night. States that he did not sleep well, though he has no pain at this time. OBJECTIVE: MOST RECENT VITAL SIGNS: Temperature 99.9 degrees, blood pressure 108/51, heart rate 86, respirations 14, he is on room air, last recorded saturation 96% he has had 0 in or out recorded. LABORATORY DATA: Sodium is 134, his potassium is 4.6, chloride 91, CO2 is 21, BUN is 83 with a creatinine of 11.6. The patient has a glucose of 115. The patient has an anion gap of 22, calcium is 9.3, albumin is 2.8. The patient has a pro BNP of 3225. PHYSICAL EXAMINATION: General: This is a 68-year-old male who is currently resting quietly in bed. He appears chronically ill, in no acute distress. Skin: Warm and dry. HEENT: Normocephalic, atraumatic. Conjunctiva is pink. He has BITA. Mucous membranes are dry. Neck: Supple. Trachea midline. No evidence of JVD in the upright position. Cardiovascular: Regular rate and rhythm. There is a soft murmur. Lungs: Clear to auscultation bilaterally. Equal excursion on room air. Abdomen: Large, obese soft, nontender. Positive bowel sounds. Genitourinary: Not inspected. Minimal void with dialysis assist. Extremities: Bilateral AKAs, right long finger with shallow ulceration and loss of the nail. Dressing is intact. It does have some drainage noted to the dressing. There is no surrounding erythematous. No foul odor noted. Neurological: He is alert and oriented x3. ASSESSMENT AND PLAN: 1. Chronic kidney disease stage 5D. Patient is due for his routine dialysis treatment today. We will place him on a 2 K bath, dialyze him for 3.5 hours. We will pull patient to his outpatient dry weight. 2. Electrolytes and acid-base balance with plan for correction on dialysis. 3. Anemia. This has not been noted though patient has been stable between 10 in 12 at the outpatient clinic. We will evaluate his CBC this a.m. 4. Ulceration of right hand middle finger, long finger. Dr. Streeter has been consulted to evaluate infection of his finger. Not calciphylaxis. He remains on Fortaz and vancomycin renal dosed. I would like to thank you for allowing us to follow with this patient. Dictated by LALA Medellin for Cresencio Rivera MD Face to face encounter, data reviewed, discussed with Deedee Bauer on 09/09/19. I agree with the above assessment and plan of care. cc: LALA Medellin MD Jagan Reddy, MD [facility]
[2019-09-09] MEDS: ZYLOPRIM PO SCH (13:27)
[2019-09-09] MEDS: SYNTHROID PO SCH (13:27)
[2019-09-09] MEDS: CRESTOR PO SCH (13:27)
[2019-09-09] MEDS: LEXAPRO PO SCH (13:27)
[2019-09-09] MEDS: JANUVIA PO SCH (13:27)
[2019-09-09] MEDS: PRILOSEC PO SCH (13:27)
[2019-09-09] MEDS: SINGULAIR PO SCH (13:27)
[2019-09-09] MEDS: ULTRACET 37.5MG/325MG PO PRN (13:34)
--- NOTE | 2019-09-09 14:15 | ECHO REPORT ---
ORDER DATE: 09/09/2019 INTERPRETING PHYSICIAN: Dr. Andrew Rios. STUDY: Limited 2D echocardiogram. MEASUREMENTS: 1. Interventricular septum 1.2. 2. Left ventricular posterior wall 1.2. 3. Diastolic diameter 4.0. 4. Left atrium 3.4. SUMMARY OF THE 2-DIMENSIONAL IMAGIN. Technically suboptimal study. 2. Normal left ventricular cavity size. Concentric left ventricular hypertrophy. Estimated ejection fraction of 60% to 65%. 3. Mitral valve is normal. There is mitral annular calcification. 4. Tricuspid valve was normal. Peak velocity across the tricuspid valve was 1.7 m/sec. There was mild tricuspid regurgitation. 5. Other Dopplers were not obtained as this was a limited study for systolic function evaluation. 6. There is no pericardial effusion. cc: MD Mckay Mann MD
[2019-09-09] MEDS ORDERED: VANCOMYCIN 1 GM/NS 1 GM/250 ML IVPB IV ONE (17:00)
[2019-09-09] MEDS ORDERED: TAZIDIME 1 GM in NS 50 ML IV ONE (17:00)
[2019-09-09] MEDS: BRIMONIDINE TART RIGHT EYE SCH ×2 (18:31→23:24)
[2019-09-09] MEDS: BRINZOLAMIDE RIGHT EYE SCH ×2 (18:31→23:24)
--- NOTE | 2019-09-09 20:58 | GENERAL SURGERY PROGRESS NOTE ---
DATE: 09/09/2019 SUBJECTIVE: He had dialysis today. Seems to be in good spirits. His right 3rd finger is about the same. Continues to have low-grade fevers. OBJECTIVE: Vital signs: Pulse 93, blood pressure 106/50, oxygen saturation 99% on room air. General: He is alert. Cardiovascular: Normal rate. Pulmonary: He is on nasal cannula. Extremities: His right 3rd digit shows stable ulcerative changes. There is no necrosis. I do not see any purulence today. I did remove the disrupted nail here as well. The hand is well perfused. LABORATORY DATA: I do not have a white count from today. His creatinine is 1.6; this was prior to dialysis. ProBNP was 3225. ASSESSMENT AND PLAN: 68-year-old gentleman with ulcer wound to the right 3rd finger. Continue local wound care with Santyl and Vashe to the area and follow this. I did remove the disrupted nailbed at the bedside today using suture scissors without issue and dressing was applied. Will observe. He may ultimately require amputation of the distal aspect of this digit, but we will monitor for improvement of his pneumonia. cc: MD Mckay Marley MD
[2019-09-09] MEDS: NEURONTIN PO SCH (23:20)
--- NOTE | 2019-09-10 02:57 | PROGRESS NOTE ---
DATE: 09/09/2019 SUBJECTIVE: The patient complains of elbow pains and continues to have cough. He had crackles in the right lung. He had elevated white cell count. He is seen in dialysis yelling at me that he needs more pain medicine. OBJECTIVE: Vital signs: After he came here, his temp is 100.2 degrees, pulse is 96. Vitals are stable. O2 saturation 91% on room air. HEENT: Within normal limits. Lungs: Crackles in the right base. Cardiac: Heart sounds are regular. Abdomen: Soft, nontender. INVESTIGATIONS: SMA: Sodium 134, potassium 4.6, BUN 83, creatinine 11.6. ProBNP was high. Repeat chest x-ray, significant improvement of the infiltrate in the right lower lobe. Elevated proBNP. The EKG, normal sinus, incomplete right bundle branch block. ASSESSMENT AND PLAN: 1. Fever, elevated white cell count, crackles and cough. Continue IV antibiotics post dialysis. 2. Right middle finger ischemia. At some point, he needs amputation once he gets better. 3. Pain. Continue on gabapentin and Ultracet as needed. 4. Elevated proBNP. EKG incomplete. No chest pain. Consider limited 2-D echo for LV function. 5. Constipation, on MiraLAX. 6. Hyperlipidemia, on Crestor. 7. Gout on Zyloprim. Appreciated consultations from Dr. Rivera and Dr. Streeter. LEVEL OF DOCUMENTATION: Was 25 minutes. cc: Mckay Wang MD
[2019-09-10 07:50] LABS: ALBUMIN 3.1 g/dL (3.5-5.0); CALCIUM 9.7 mg/dL (8.8-10.2); CREATININE 9.5 mg/dL (0.7-1.2); PHOSPHORUS 5.6 mg/dL (2.7-4.5); POTASSIUM 4.2 mmol/L (3.5-5.1)
[2019-09-10] MEDS: CRESTOR PO SCH (08:09)
[2019-09-10] MEDS: JANUVIA PO SCH (08:09)
[2019-09-10] MEDS: SENSIPAR PO SCH (08:09)
[2019-09-10] MEDS: SYNTHROID PO SCH (08:09)
[2019-09-10] MEDS: ZYLOPRIM PO SCH (08:09)
[2019-09-10] MEDS: LEXAPRO PO SCH (08:09)
[2019-09-10] MEDS: SINGULAIR PO SCH (08:09)
[2019-09-10] MEDS: PRILOSEC PO SCH (08:09)
[2019-09-10] MEDS: SANTYL OINT TOP SCH (08:11)
[2019-09-10] MEDS: BRIMONIDINE TART RIGHT EYE SCH ×2 (08:12→22:45)
[2019-09-10] MEDS: BRINZOLAMIDE RIGHT EYE SCH ×2 (08:12→22:45)
[2019-09-10 08:19] LABS: BASO# 0.01 X1000 (0.0-0.2); BASO% 0.1 % (0.0-0.8); EOS# 0.12 X1000 (0.0-0.7); EOS% 0.7 % (0.0-10.0); HEMATOCRIT 40.1 % (42.0-52.0); HEMOGLOBIN 12.6 g/dL (14.0-18.0); LYMPH# 8.82 X1000 (1.2-3.4); MCH 28.9 PG (27-31); MCHC 31.4 g/dL (33-37); MONO% 7.3 % (1.7-9.3); MPV 11.1 FL (7.4-10.4); NEUT# 6.19 X1000 (1.4-6.5); NEUT% 37.9 % (42.2-75.2); PLT 149 X1000 (130-400); RBC 4.36 XMIL (4.7-6.1); RDW 15.5 % (11.5-14.5); WBC 16.34 X1000 (4.8-10.8)
[2019-09-10] MEDS: ULTRACET 37.5MG/325MG PO PRN (08:25)
[2019-09-10 11:58] LABS: HEPATITIS PROFILE ACUTE SEE COMMENTS
--- NOTE | 2019-09-10 15:05 | NEPHROLOGY PROGRESS NOTE ---
DATE: 09/10/2019 TIME SEEN: 07:00. SUBJECTIVE: Mr. Ordonez is resting quietly in bed. Head of the bed is elevated. He states that he is feeling just slightly better, but it is difficult to move about in bed. OBJECTIVE: Vital signs: His most recent vital signs, his last temperature 100.1 degrees, blood pressure 123/67, heart rate 88, respirations 16. He is on room air. Last recorded saturation 92%. He has had 240 in, 2,628 out on dialysis yesterday. Labs: This a.m. sodium 139, potassium 4.2, chloride 94, CO2 27, BUN 60, creatinine 9.5, glucose is 103, anion gap of 18. Has a calcium of 9.7, phosphorus 5.6, albumin 3.1. White count 16.34, hemoglobin 12.6, hematocrit 40.1, with a platelet count of 149,000. PHYSICAL EXAMINATION: General: This is a 68-year-old male. He is resting quietly in bed. He appears chronically ill, no acute distress. Skin: Warm and dry. HEENT: Normocephalic, atraumatic. Conjunctiva is pale pink with erythematous sclerae. Neck: Supple. Trachea midline. No evidence of JVD in the upright position. Cardiovascular: Regular rate and rhythm. He has a soft murmur. Lungs: Clear to auscultation bilaterally. Equal excursion. On room air. Abdomen: Large, round, soft, nontender. Positive bowel sounds. Genitourinary: Not inspected. Minimal void with dialysis assist. Extremities: Bilateral AKA. Long finger on the right hand is currently dressed. No inspection at this time. Dressing is dry and intact. No edema to the hip region to bilateral AKAs. Neurologic: Alert and oriented x3. ASSESSMENT AND PLAN: 1. Chronic kidney disease stage 5D. The patient is due for his routine dialysis treatment in the a.m. No indications for intervention today. Tolerated dialysis yesterday. 2. Electrolytes and acid-base balance with correction on dialysis. 3. Anemia. This remains fair but stable. 4. Leukocytosis. Patient has a white cell count of 16.2. He is currently on vancomycin and ceftazidime after dialysis. 5. Infection of long finger on right hand. This is being followed by Dr. Streeter. I would like to thank you for allowing us to follow with this patient. Dictated by LALA Medellin for Cresencio Rivera MD Face to face encounter, data reviewed, discussed with Deedee Bauer on 09/10/19. I agree with the above assessment and plan of care. cc: LALA Medellin MD Jagan Reddy, MD [facility]
[2019-09-10] MEDS: NEURONTIN PO SCH (22:45)
--- NOTE | 2019-09-11 00:22 | PROGRESS NOTE ---
DATE: 09/10/2019 SUBJECTIVE: The patient has fever 100. He has cough and he had dialysis yesterday. He complains of elbow pains. OBJECTIVE: Vital signs: Stable. He had crackles in the right base. Heart sounds are regular. Belly is soft, nontender. INVESTIGATIONS: White cell count 16, hematocrit 40, platelets 149,000. Sodium 139, potassium 4.2, BUN 60, creatinine 9.5. Hepatitis panel was negative. ASSESSMENT: 1. Fever, leukocytosis, crackles on the base. Chest x-ray definitely improved compared to from my office. 2. Elevated proBNP and the left ventricular function is normal. 3. Right middle finger ischemic. PLAN: Continue hemodialysis, IV antibiotics. Continues to see the trend of CBC and clinical basis. Appreciated consult, thanks. LEVEL OF DOCUMENTATION: 25 minutes. cc: Mckay Wang MD
[2019-09-11] MEDS ORDERED: HEPARIN IV PRN (06:45)
[2019-09-11] MEDS ORDERED: NS 2,000 ML MISC PRN (06:45)
[2019-09-11] MEDS ORDERED: TIGHT: 0.2 ML/HR FOR DIALYSIS MISC PRN (06:45)
[2019-09-11 07:56] LABS: BASO# 0.02 X1000 (0.0-0.2); BASO% 0.1 % (0.0-0.8); EOS# 0.14 X1000 (0.0-0.7); EOS% 0.8 % (0.0-10.0); HEMATOCRIT 40.3 % (42.0-52.0); HEMOGLOBIN 12.7 g/dL (14.0-18.0); IMM GRAN# 0.07 X1000 (0.0-0.04); IMM GRAN% 0.4 % (0.0-0.5); LYMPH# 9.45 X1000 (1.2-3.4); LYMPH% 55.1 % (20.5-51.1); MCH 28.6 PG (27-31); MCHC 31.5 g/dL (33-37); MCV 90.8 FL (81-99); MONO# 0.91 X1000 (0.11-0.59); MONO% 5.3 % (1.7-9.3); MPV 10.9 FL (7.4-10.4); NEUT# 6.55 X1000 (1.4-6.5); NEUT% 38.3 % (42.2-75.2); PLT 163 X1000 (130-400); RBC 4.44 XMIL (4.7-6.1); WBC 17.14 X1000 (4.8-10.8)
[2019-09-11 08:26] LABS: ALBUMIN 3.1 g/dL (3.5-5.0); CALCIUM 8.7 mg/dL (8.8-10.2); PHOSPHORUS 5.4 mg/dL (2.7-4.5); POTASSIUM 4.6 mmol/L (3.5-5.1)
--- NOTE | 2019-09-11 08:48 | Diag Imaging Result Doc PS360 ---
EXAM: CHEST-1 VIEW 09/11/2019 HISTORY: SOB TECHNIQUE: AP portable upright at 0834 COMMENT: There is alveolar opacity in the right lower lobe. This was not as dense on 09/09/2019. IMPRESSION: Right lower lobe pneumonia. Electronically signed by Karel Leblanc 09/11/2019 8:46 AM
[2019-09-11] MEDS: PRILOSEC PO SCH (13:26)
[2019-09-11] MEDS: LEXAPRO PO SCH (13:26)
[2019-09-11] MEDS: JANUVIA PO SCH (13:26)
[2019-09-11] MEDS: CRESTOR PO SCH (13:26)
[2019-09-11] MEDS: SYNTHROID PO SCH (13:27)
[2019-09-11] MEDS: SINGULAIR PO SCH (13:27)
[2019-09-11] MEDS: ZYLOPRIM PO SCH (13:27)
[2019-09-11] MEDS: SANTYL OINT TOP SCH (13:27)
[2019-09-11] MEDS: BRINZOLAMIDE RIGHT EYE SCH ×2 (13:28→20:36)
[2019-09-11] MEDS: BRIMONIDINE TART RIGHT EYE SCH ×2 (13:28→20:36)
[2019-09-11] MEDS: ULTRACET 37.5MG/325MG PO PRN (16:21)
[2019-09-11] MEDS ORDERED: TAZIDIME 1 GM in NS 50 ML IV ONE (17:00)
[2019-09-11] MEDS ORDERED: VANCOMYCIN 1 GM/NS 1 GM/250 ML IVPB IV ONE (17:00)
--- NOTE | 2019-09-11 17:01 | NEPHROLOGY PROGRESS NOTE ---
DATE: 09/11/2019 SUBJECTIVE: He is asking for discharge. He states he feels well, and has no shortness of breath, nausea, vomiting. Eating well. OBJECTIVE: Vital Signs: Blood pressure 107/66, heart rate 78, respirations 16, temperature 99.6 degrees. General: No acute distress. Skin: Warm and dry. Neck: Veins are not appreciated. Heart: Regular with murmur. Lungs: Equal. No crackles. Abdomen: Obese, soft, nontender. Bowel sounds present. Extremities: No edema, clubbing, or cyanosis. Bilateral AKA. Right long finger is dressed. IMPRESSION/PLAN: 1. Pneumonia. Possibly improved on chest x-ray today, compared to 48 hours previously. Still having low-grade fevers. 2. Chronic kidney disease 5D. Electrolytes/acid base/volume status/anemia/blood pressure all in target. He will have his routine outpatient dialysis prescription today. cc: MD Mckay Pimentel MD
--- NOTE | 2019-09-11 19:33 | PROGRESS NOTE ---
DATE: 09/11/2019 SUBJECTIVE: The patient is seen in dialysis a little better, still coughing, low-grade fever and white cell count is going up. Temperature is 100.1 degrees. Repeat chest x-ray showed again infiltrate in the right lower lobe and rest of the exam is benign. LABS: White cell count 17, hematocrit 40, platelets 163,000. SMA 7. Sodium 139, potassium 4.6, BUN 78, creatinine 11, albumin 3.1. ASSESSMENT AND PLAN: 1. Right lower lobe pneumonia. Continue IV antibiotics, vancomycin and Fortaz post dialysis. 2. Right 3rd finger ischemic changes. Waiting for amputation not healing. 3. End-stage kidney disease, on dialysis. 4. Type 2 diabetes, stable. Continue present treatment for other medical problems. Appreciated consultations by Dr. Streeter and Dr. Rivera. We will keep him over the weekend and reassess again chest x- ray and the labs on Saturday. LEVEL OF DOCUMENTATION: 25 minutes. cc: Mckay Wang MD MTDD
[2019-09-11] MEDS: NEURONTIN PO SCH (20:36)
[2019-09-12 08:26] LABS: BASO# 0.03 X1000 (0.0-0.2); BASO% 0.3 % (0.0-0.8); EOS# 0.18 X1000 (0.0-0.7); EOS% 1.6 % (0.0-10.0); HEMATOCRIT 42.9 % (42.0-52.0); HEMOGLOBIN 13.1 g/dL (14.0-18.0); IMM GRAN# 0.06 X1000 (0.0-0.04); IMM GRAN% 0.5 % (0.0-0.5); LYMPH# 6.26 X1000 (1.2-3.4); MCH 28.4 PG (27-31); MCHC 30.5 g/dL (33-37); MCV 93.1 FL (81-99); MONO# 0.71 X1000 (0.11-0.59); MONO% 6.1 % (1.7-9.3); MPV 10.6 FL (7.4-10.4); NEUT# 4.36 X1000 (1.4-6.5); NEUT% 37.5 % (42.2-75.2); PLT 151 X1000 (130-400); RBC 4.61 XMIL (4.7-6.1); RDW 15.3 % (11.5-14.5)
[2019-09-12 08:56] LABS: ALBUMIN 2.9 g/dL (3.5-5.0); CALCIUM 8.8 mg/dL (8.8-10.2); CREATININE 8.3 mg/dL (0.7-1.2); PHOSPHORUS 5.7 mg/dL (2.7-4.5); POTASSIUM 4.2 mmol/L (3.5-5.1)
[2019-09-12] MEDS: PRILOSEC PO SCH (10:55)
[2019-09-12] MEDS: LEXAPRO PO SCH (10:55)
[2019-09-12] MEDS: SINGULAIR PO SCH (10:55)
[2019-09-12] MEDS: SENSIPAR PO SCH (10:55)
[2019-09-12] MEDS: SYNTHROID PO SCH (10:55)
[2019-09-12] MEDS: BRINZOLAMIDE RIGHT EYE SCH ×2 (10:56→20:06)
[2019-09-12] MEDS: SANTYL OINT TOP SCH (10:56)
[2019-09-12] MEDS: CRESTOR PO SCH (10:56)
[2019-09-12] MEDS: BRIMONIDINE TART RIGHT EYE SCH ×2 (10:56→20:06)
[2019-09-12] MEDS: ZYLOPRIM PO SCH (10:56)
[2019-09-12] MEDS: JANUVIA PO SCH (10:56)
[2019-09-12] MEDS: NEURONTIN PO SCH (20:06)
--- NOTE | 2019-09-12 23:29 | PROGRESS NOTE ---
DATE: 09/12/2019 A 68-year-old, gentleman admitted with chest congestion, cough, wheezing, shortness of breath. Chest x-ray revealed right lower lobe infiltrate and blood work revealed leukocytosis. The patient also had nonhealing ulcer on the right middle finger not responding to outpatient treatment. The patient got admitted. He is getting IV antibiotics post dialysis. Dr. Streeter is taking care of his nonhealing ulcer with infection. The patient does have chronic kidney disease on hemodialysis. The patient does have some cough and congestion. He denied any high-grade fever or chills. No diarrhea. Oral intake is better. Admission history and physical noted. Nephrology consult also reviewed. PAST MEDICAL HISTORY: Significant for end-stage renal disease on dialysis, obesity, hypertension, diabetes. Peripheral vascular disease. OBJECTIVE: Vital Signs: Blood pressure 109/55, pulse 66, respiration rate 14, temperature 98.1 degrees. Skin: Senile turgor. Neck: Supple. No JVD, thyromegaly or lymphadenopathy. Chest: Bibasilar crepitation. Occasional wheezing. CVS: S1 and S2 heard. Abdomen: Soft, globular. Bowel sounds present. MOTION STUDY TECHNICIAN: Alert, awake. Answering questions fairly well. The patient does have bilateral above-knee amputation. CONSIDERATION: 1. Right lower lobe pneumonia. We will continue pulmonary toilet and IV antibiotics. 2. End-stage renal disease, on hemodialysis. 3. Infected right middle finger. We are doing local wound care. 4. Peripheral neuropathy on Neurontin. 5. Hyperlipidemia, on Crestor. 6. NIDDM on Januvia. We will continue current treatment and close observation. LABORATORY DATA: Done today. WBC count 11.6, hemoglobin 13.1, hematocrit 42.9, platelet count 151,000. His BUN was 53, creatinine 8.3. Admission hepatitis profile was negative. PLAN: Overall plan discussed with the patient and he is in agreement. cc: MD Mckay Ruiz MD
[2019-09-13 07:50] LABS: BASO# 0.03 X1000 (0.0-0.2); BASO% 0.2 % (0.0-0.8); EOS# 0.24 X1000 (0.0-0.7); HEMOGLOBIN 12.7 g/dL (14.0-18.0); IMM GRAN# 0.07 X1000 (0.0-0.04); IMM GRAN% 0.6 % (0.0-0.5); LYMPH# 6.69 X1000 (1.2-3.4); LYMPH% 54.8 % (20.5-51.1); MCH 28.5 PG (27-31); MCV 91.9 FL (81-99); MONO# 0.41 X1000 (0.11-0.59); MONO% 3.4 % (1.7-9.3); MPV 10.5 FL (7.4-10.4); NEUT# 4.77 X1000 (1.4-6.5); PLT 165 X1000 (130-400); RBC 4.46 XMIL (4.7-6.1); RDW 14.9 % (11.5-14.5); WBC 12.21 X1000 (4.8-10.8)
[2019-09-13 08:24] LABS: ALBUMIN 2.8 g/dL (3.5-5.0); CALCIUM 8.4 mg/dL (8.8-10.2); CREATININE 9.8 mg/dL (0.7-1.2); PHOSPHORUS 5.6 mg/dL (2.7-4.5); POTASSIUM 4.1 mmol/L (3.5-5.1)
[2019-09-13] MEDS: BRINZOLAMIDE RIGHT EYE SCH ×2 (10:02→20:09)
[2019-09-13] MEDS: BRIMONIDINE TART RIGHT EYE SCH ×2 (10:02→20:09)
[2019-09-13] MEDS: SENSIPAR PO SCH (10:05)
[2019-09-13] MEDS: SINGULAIR PO SCH (10:06)
[2019-09-13] MEDS: SYNTHROID PO SCH (10:06)
[2019-09-13] MEDS: LEXAPRO PO SCH (10:06)
[2019-09-13] MEDS: ZYLOPRIM PO SCH (10:06)
[2019-09-13] MEDS: PRILOSEC PO SCH (10:06)
[2019-09-13] MEDS: CRESTOR PO SCH (10:07)
[2019-09-13] MEDS: JANUVIA PO SCH (10:07)
[2019-09-13] MEDS: SANTYL OINT TOP SCH (10:07)
[2019-09-13] MEDS: NEURONTIN PO SCH (20:09)
[2019-09-13] MEDS: ULTRACET 37.5MG/325MG PO PRN (20:12)
--- NOTE | 2019-09-13 20:41 | PROGRESS NOTE ---
DATE: 09/13/2019 Mr. Ordonez is doing better. Complaining of some chest congestion, cough with expectoration. No high-grade fever or chills. Oral intake is good. No blood or mucus in the stool. No typical chest pain. No nausea or vomiting. OBJECTIVE: His vital signs noted. Neck: Is supple. No JVD. Lungs: Bibasilar crepitations. Heart: S1 and S2 heard. Abdomen: Soft, globular. Bowel sounds present. DAIRY BACTERIOLOGIST: Alert, awake, answering questions fairly well. The patient does have bilateral above knee amputation. LABORATORY DATA: Done today, WBC count 12.21, hemoglobin 12.7, hematocrit 41, platelet count 165,000, BUN 63, creatinine 9.8. ASSESSMENT AND PLAN: Patient's problems include: 1. Right lower lobe pneumonia. 2. End-stage renal disease, on hemodialysis. Clinically doing well. 3. Peripheral neuropathy. 4. Hyperlipidemia. 5. NIDDM on Januvia. 6. Infected right middle finger. 7. Overall patient is doing fair. We will continue current treatment. Close observation. Hopefully the patient should be able to go home after dialysis tomorrow. cc: MD Mckay Ruiz MD
[2019-09-14] MEDS ORDERED: TIGHT: 0.2 ML/HR FOR DIALYSIS MISC PRN (06:57)
[2019-09-14] MEDS ORDERED: HEPARIN IV PRN (06:57)
[2019-09-14] MEDS ORDERED: NS 2,000 ML MISC PRN (06:57)
[2019-09-14 08:25] LABS: ALBUMIN 2.7 g/dL (3.5-5.0); CALCIUM 7.8 mg/dL (8.8-10.2); CREATININE 11.4 mg/dL (0.7-1.2); PHOSPHORUS 5.8 mg/dL (2.7-4.5); POTASSIUM 4.4 mmol/L (3.5-5.1)
[2019-09-14] MEDS: BRIMONIDINE TART RIGHT EYE SCH (09:19)
[2019-09-14] MEDS: BRINZOLAMIDE RIGHT EYE SCH (09:19)
[2019-09-14] MEDS: PRILOSEC PO SCH (09:21)
[2019-09-14] MEDS: LEXAPRO PO SCH (09:21)
[2019-09-14] MEDS: JANUVIA PO SCH (09:21)
[2019-09-14] MEDS: SYNTHROID PO SCH (09:21)
[2019-09-14] MEDS: SANTYL OINT TOP SCH (09:21)
[2019-09-14] MEDS: SINGULAIR PO SCH (09:21)
[2019-09-14] MEDS: ZYLOPRIM PO SCH (09:21)
[2019-09-14] MEDS: CRESTOR PO SCH (09:21)
--- NOTE | 2019-09-14 09:56 | NEPHROLOGY PROGRESS NOTE ---
DATE: 09/14/2019 SUBJECTIVE: Patient is sitting up in bed. He is waiting to go to dialysis and hopes to go home today. OBJECTIVE: Vital Signs: Temperature 97.6 degrees, pulse 63, respiratory rate 22, blood pressure 111/65. Intake 120 mL. Output not measured. General: Chronically ill- appearing, elderly gentleman resting in bed. He is awake, alert, no acute distress. HEENT: Normocephalic, atraumatic. PERRL. Neck: Supple. No JVD. Cardiovascular: Regular rate and rhythm. Systolic murmur noted. Pulmonary: Clear bilaterally. Equal excursion. Abdomen: Soft, with positive bowel sounds, obese. : Not inspected. Minimal void. Hemodialysis assist. Extremities: No clubbing, cyanosis, edema. He has bilateral AKA. Integumentary: Skin is warm and dry. Neurologic: Nonfocal. LAB DATA: No new labs today. ASSESSMENT AND PLAN: 1. Chronic kidney disease 5D. Today is his routine dialysis day. We will dialyze on a 2 K bath, UF to his dry weight, 3.5 hour treatment. 2. Pneumonia on appropriately dosed antibiotics. No changes. Dictated by LALA Montero for Cresencio Rivera MD Face to face encounter, data reviewed, discussed with Myriam Brown on 09/14/18. I agree with the above assessment and plan of care. cc: MD Mckay Pimentel MD [facility]
[2019-09-14 16:17] VITALS: BP 98/47
[2019-09-14] MEDS ORDERED: TAZIDIME 1 GM in NS 50 ML IV ONE (17:00)
[2019-09-14] MEDS ORDERED: VANCOMYCIN 1 GM/NS 1 GM/250 ML IVPB IV ONE (17:00)
--- NOTE | 2019-09-19 10:23 | DISCHARGE SUMMARY ---
ADMISSION DATE: 09/08/2019 DISCHARGE DATE: 09/14/2019 DISCHARGING DIAGNOSES: 1. Right lower lobe pneumonia. 2. Left middle finger digital ischemia. 3. End-stage kidney disease on dialysis. 4. External hemorrhoids. 5. Type 2 diabetes. 6. Hypertension. 7. Acid reflux disease. 8. Glaucoma. 9. Obesity. 10. Gout, 11. Hypothyroidism. 12. History of calciphylaxis. 13. History of arteriovenous fistula in the left arm. 14. Bilateral above-knee amputation due to peripheral arterial disease. CONSULTATIONS: Dr. Rivera, Dr. Streeter. PROCEDURES: Inpatient hemodialysis. BRIEF HISTORY: Please see the history and physical that was done 09/08/2019. In brief, he is a 68-year-old male, basically with the above problems, admitted to the hospital with cough, crackles in the right base, elevated white cell count, also not healing the right middle finger for the last 1 month. Options were discussed. Given his comorbid conditions, he was admitted to the hospital. HOSPITAL COURSE: During his hospital course, he was given Fortaz and vancomycin post dialysis. Dr. Streeter was consulted for the right middle finger which is slowly getting ischemic, not healing. Dr. Streeter reported let him recover from pneumonia. After he stabilized, other options discussed about possible amputation and follow-up. Clinically, patient is improving and he wants to go home, and the rest of the hospital course was uneventful. DISCHARGE LABORATORY DATA: 1. White cell count 12, hematocrit 41, platelets 165,000. 2. Sodium 138, potassium 4.1, BUN 73, creatinine 11.4, albumin 2.1. Hemoglobin A1c 5.6. DISCHARGE DISPOSITION: The patient was discharged home in stable condition. Pneumococcal vaccine 23 was given 09/02/2014. DISCHARGE MEDICATIONS: 1. Continue IV antibiotics, vancomycin and Fortaz after dialysis for 1 week and follow up chest x- ray in 2 weeks. 2. Januvia 50 daily. 3. Prilosec 20 daily. 4. Gabapentin 800 at bedtime. 5. Crestor 20 daily. 6. Synthroid 75 mcg daily. 7. Simbrinza 1 drop in the right eye b.i.d. 8. Allopurinol 100 daily. 9. Folic acid/B complex 1 tablet daily. 10. Singulair 10 daily. 11. Lexapro 10 daily. 12. Ferric citrate 210 mg daily. 13. Sensipar 90 mg as directed by Dr. Rivera. 14. MiraLAX 17 mg daily as needed. FOLLOWUP: Follow up with Dr. Rivera for IV antibiotics for at least 10 days. Follow up in my office in 2 weeks. cc: MD Cresencio Salazar MD R. Tyler Harney, MD
== END 2019-09-14 17:26 | disposition home health service (06) | DRG 193 ==
LOC: DIRADM 12:40 → EDIPHOLD 14:27 → 3N 19:01
PROVIDERS: ADMIT Internal Medicine; ATTEND Internal Medicine